=== PATIENT | female | born 1975 | race Caucasian/White ===

== ENCOUNTER 2017-11-08 09:45 | Emergency (ER) | payer BC, SELFPAY ==
[2017-11-08 09:45] VITALS: BP 136/80; PULSE 76; RESP 18; TEMP 36.6; O2SAT 100; BMI 30.1
--- NOTE | 2017-11-08 10:14 | ED.DCSUM_ITS ---
- ER Visit Summary Date of Service: 11/08/17 Chief Complaint: Injury to right long finger History of Present Illness: The patient is a 42 F is right-handed presents with injury to right long finger. She closed the door on her finger. Tetanus immunization is unknown. She denies any paresthesia, anesthesia or motor weakness. She is on no anticoagulant or antiplatelet medicine. Physical Examination: Should not completely avulsed the nail of the right long finger. There is a nail bed injury which will require repair and there is evidence of avulsed tissue. The extensor commonness tendon, the flexor digitorum superficialis and the flexor digitorum profundus are intact. Capillary refill is normal. Sensation is normal. Test Results: Three-view x-ray of the right long finger reveals a nondisplaced tuft fracture. Emergency Department Course and Treatment: Three-view x-ray of the right long finger was ordered to evaluate for fracture since she has pain to palpation of the distal phalanx. Tetanus was updated. Treatment Plan: Finger was prepped draped in sterile manner. A digital block was placed using 1% lidocaine. The wound was irrigated with normal saline, 200 cc. The nailbed was repaired using 6-0 Vicryl. A portion of the distal phalanx was exposed and could not be covered when the nailbed was repaired.. The nail was sutured in place since it is intact and will protect the nail bed. Disposition: Follow-up appointment with Dr. Jose Torres tomorrow at 1015, appropriate home-going instruction and cephalexin 500 mg 3 times daily Impression: 1. Open tuft fracture right long finger initial encounter 2. Nailbed repair 3. Reattachment of nail This note was generated with [employer] dictation software. It may contain incorrect words, spelling, and punctuation that were not noted in review of the chart prior to signing ED Disposition - Plan for ED Patient: Disposition: Home or Assisted Living Chief Complaint: Laceration Instructions: ED Fx Finger Open Prescriptions: Cephalexin [Keflex] 500 mg PO Q8 #14 cap Referrals: Papito Starks MD [NON-STAFF] - Jose Gutiérrez MD [STAFF PHYSICIAN] - 11/09/17 10:15 am
--- NOTE | 2017-11-08 10:30 | RAD_ITS ---
STUDY: X-RAY - RIGHT HAND, ATTENTION MIDDLE FINGER REASON FOR EXAM: Caught distal middle finger in door, nail removed. TECHNIQUE: 3 view(s) of the finger were obtained. COMPARISON: None. FINDINGS: Normal metacarpal head. Normal metacarpophalangeal joint. Normal proximal phalanx. Normal middle phalanx. There is slight deformity of the ungual tuft of the third finger suggestive of remote injury but no demonstrated recent fracture. Normal proximal interphalangeal joint. Normal distal interphalangeal joint. There is soft tissue swelling of the distal aspect of the finger. RAD/Finger(s) Min 2 Views IMPRESSION: Slight deformity of the ungual tuft of the third finger suggestive of remote injury without demonstrated recent fracture. Electronically Signed: Miller De La Cruz MD at 10:53 EST Tel , Service support ,
[2017-11-08] MEDS: Diphth,Pertuss(Acell),Tet Vac 0.5 ML Vial IM (10:38)
[2017-11-08] MEDS: Cephalexin 250 MG Capsule 500 MG PO (11:50)
== END 2017-11-08 11:58 | disposition home or self-care (01) ==
PROVIDERS: Emergency Provider Emergency Medicine
DX: S62.602B Fracture of unspecified phalanx of right middle finger, initial encounter for open fracture (principal); W23.0XXA Caught, crushed, jammed, or pinched between moving objects, initial encounter; Y93.9 Activity, unspecified; Y92.9 Unspecified place or not applicable; Y99.9 Unspecified external cause status; Z72.0 Tobacco use; Z23 Encounter for immunization
CPT/HCPCS: 11760; 73140; 90471; 90715; 99283

== ENCOUNTER 2017-11-13 05:58 | Day surgery (SDC) | payer BC, SELFPAY ==
--- NOTE | 2017-11-12 19:58 | HP.PCM_ITS ---
History and Physical Date of Admission: 11/13/17 HISTORY OF PRESENT ILLNESS 42 year old woman presents with blunt trauma to her right long fingertip when she caught her finger in a car door when it was closed. She denies any numbness or weakness of the right long finger. There was bleeding at the scene that was controlled with pressure. She went to the ED where an xray showed no acute fracture. A nail bed injury was noted and was partially repaired in the ED. However the distal phalanx could not be completely closed with the available nail bed tissue as there was some avulsion of tissue. The nail plate was tacked back on to protect the nail bed. I saw her in the office and recommended to her to have her finger nail explored and the nail bed defect repaired. This may require lateral relaxing incisions. A split thickness nail bed graft may be necessary as well. If I can harvest it from the same nail that would be ideal. If the surrounding nail bed tissue is not of good quality for a nail bed graft then I would need to obtain the graft from an adjacent finger or a toe. Patient denies any fever. Patient is able to move her fingers without difficulty. The ED placed her on Keflex. PAST MEDICAL HISTORY GERD. PAST SURGICAL HISTORY Foot surgery. Nasal surgery. MEDICATIONS Biotin. Keflex. Flonase. Ibuprofen. Prilosec. Ketotifen eye drops. ALLERGIES None. SOCIAL HISTORY Patient is a smoker. Patient does not drink alcohol. FAMILY HISTORY Breast cancer - Grandmother. Colon cancer - Grandfather and Grandmother. Diabetes - Grandfather. Lung cancer - Father. REVIEW OF SYSTEMS General - Denies fever, fatigue, and weight loss. ENT - Denies nasal congestion and sore throat. Eyes - Denies cataracts and glaucoma. Endocrine - Denies excessive thirst and urination. Skin - Has nail bed injury right long finger tip. Musculoskeletal - Denies joint pain, joint stiffness, weakness of muscles and joints, back pain, and arthritis. Neuro - Denies headaches. Cardiovascular - Has chest pain. Denies shortness of breath with exertion. Psych - Denies anxiety and depression. Respiratory - Denies cough and shortness of breath. Patient is a smoker. Gastrointestinal - Denies nausea, vomiting, diarrhea, and constipation. Hematologic - Denies bleeding and abnormal bruising. Genitourinary - Denies hematuria and urinary frequency. PHYSICAL EXAMINATION General - Alert and oriented. HEENT - PERRL. EOMI. Throat is clear. Neck - Supple and nontender. No cervical adenopathy. Lungs - Clear to auscultation. Heart - Regular rate and rhythm. Abdomen - Soft and nondistended. Extremities - FROM. No axillary adenopathy. Radial pulses are palpable. Fingers are warm with good capillary refill. The right long finger tip is mildly swollen. Nail plate is in place with sutures. Neuro - CN II - XII grossly intact. ASSESSMENT 1. Complex nail bed injury right long finger tip with exposed bone. 2. Smoker. PLAN Xray reviewed. There is no acute fracture seen. Recommend exploration of the patient's nail bed right long finger. According to ED reports, there is some tissue missing and exposed distal phalanx. The goal is to provide soft tissue coverage, hopefully with nail bed tissue. Depending on the size of the tissue defect, relaxing lateral incisions may be necessary and or a possible nail bed graft (split thickness). If there is an area on the same nail for the graft then that will be my first choice. If not then an adjacent digit or a toe would be used as the donor site. If there is near total loss of the nail bed then instead of causing another nail bed defect in another digit, then I would consider excising the nail complex and provide soft tissue coverage to maintain length with a two stage thenar flap or a cross finger flap and skin grafting. Surgery will be done under general anesthesia on an outpatient basis. Continue Keflex until the surgery. Patient was informed of the risks and complications of the procedure including alternatives to surgery. These were discussed with her personally. She voices understanding and wishes to proceed. Some of the risks and complications were included in a form from the [employer]. Some of the risks that were discussed included but were not inclusive of failure to diagnose including symptom relief, pain, infection, numbness, stiffness, loss of digit, RSD, need for further surgery, contracture and wound healing problems. She voices understanding and wishes to proceed. Encouraged the patient to stop smoking as it may have deleterious effects on wound healing.
[2017-11-13] VITALS (7 sets, daily range): BP systolic 113–132; BP diastolic 70–92; PULSE 56–85; RESP 14–16; TEMP 36.3–36.8; O2SAT 93–98; BMI 30.3
[2017-11-13 06:17] LABS: Internal QC Validated? YES +Cl - CLEAR BKGD; Pregnancy, Urine Negative Negative
[2017-11-13] MEDS: Cefazolin 2 GM in 0.9% Normal Saline 100 ML IV (07:19)
[2017-11-13] MEDS: Mupirocin Ointment 22gm Tube 1 APPLIC (08:40)
--- NOTE | 2017-11-13 08:49 | OP.PN_ITS ---
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 Complex nail bed injury right long finger tip with exposed bone. 2. Smoker. Post-Operative Diagnosis: 1. Complex nail bed injury defect with exposed bone ( 40%) ulnar aspect right long finger tip. 2. Smoker. Surgery/Procedure Performed:: Complex repair nail bed defect with exposed bone ( 40%) ulnar aspect right long finger with nail bed graft from left big toe. Description of Surgical Findings:: 42 year old woman presents with blunt trauma to her right long fingertip when she caught her finger in a car door when it was closed. She denies any numbness or weakness of the right long finger. There was bleeding at the scene that was controlled with pressure. She went to the ED where an xray showed no acute fracture. A nail bed injury was noted and was partially repaired in the ED. However the distal phalanx could not be completely closed with the available nail bed tissue as there was some avulsion of tissue. The nail plate was tacked back on to protect the nail bed. I saw her in the office and recommended to her to have her finger nail explored and the nail bed defect repaired. This may require lateral relaxing incisions. A split thickness nail bed graft may be necessary as well. If I can harvest it from the same nail that would be ideal. If the surrounding nail bed tissue is not of good quality for a nail bed graft then I would need to obtain the graft from an adjacent finger or a toe. Patient denies any fever. Patient is able to move her fingers without difficulty. The ED placed her on Keflex. Today the patient underwent complex repair nail bed defect with exposed bone (40 %) ulnar aspect right long finger with nail bed graft from left big toe. Total tourniquet time - right long finger - 42 minutes. left big toe - 31 minutes. Size of defect right long finger tip nail bed - 0.4 x 0.7 cm. Estimated Blood Loss: 5 ml. Specimen's removed: None. Drains: None. Type of Anesthesia:: General - Admit VTE Documentation VTE Present on Admission: No VTE Mechan Device Prophylaxis: SCD's VTE Pharm Prophylaxis ordered?: No
--- NOTE | 2017-11-13 08:55 | PCM.DC ---
You will use the following diet at home:: No restrictions Discharge Activity: May not drive while taking narcotic pain medications., - - keep right hand elevated. keep left leg elevated when sitting. minimize standing. May shower in (days): 1 - wear plastic bag over right hand and left foot when showering. May resume sexual activity in: No Restrictions Weight Bearing Status: Weight bearing as tolerated Lifting Restrictions: 20 lbs. Keep extremity elevated above heart level: Right Arm, Left Leg Call your doctor if your incision/area has: Continuous Slow Oozing, Sudden Increased Bleeding, Increased Pain/ Swelling, Increased Redness, Foul Smelling Discharge, Swelling at the incision site Call your doctor if you observe: Fever of 101 or Higher, Coldness, Increased Pain, Shortness of breath, Chest pain, Calf discomfort, Uncontrolled pain Suture Line Care: - - after dressing removed in the office, apply antibiotic ointment to nail sutures daily. Remove Dressing in (days):: 7 - will remove dressing in office. Cleanse incision/area with: - - wear plastic bag over right hand and left foot when showering. Allergies/Adverse Reactions: Allergies No Known Allergies Allergy (Verified 11/12/17 14:36) Medications to take at Discharge Cephalexin [Keflex] 500 mg PO Q8 #14 cap 11/08/17 Fluticasone 0.05% [Flonase Nasal [place]] 2 spray NASAL DAILY 11/08/17 Omeprazole [Prilosec] 40 mg PO DAILY 11/08/17 biotin 10,000 mcg capsule 10,000 mcg PO DAILY ea 11/09/17 ketotifen 0.025 % (0.035 %) eye drops 2 drp EACH EYE DAILY ml 11/09/17 Ibuprofen 600 mg PO Q6H PRN 11/12/17 Doxycycline [Vibramycin] 100 mg PO BID #28 cap 11/13/17 Oxycodone HCl/Acetaminophen [Percocet 5/325] 1 - 2 tab PO 4X/DAY PRN PRN 7 Days #30 tab 11/13/17 The following prescriptions were given: Oxycodone HCl/Acetaminophen [Percocet 5/325] 1 - 2 tab PO 4X/DAY PRN PRN 7 Days #30 tab PRN Reason: Pain Doxycycline [Vibramycin] 100 mg PO BID #28 cap Primary Care Physician: Care Physician,No Primary [Primary Care Provider] - Please Follow Up With: Jose Gutiérrez MD When: one week. call [phone] for appt. Proposed Discharge Date: 11/13/17
--- NOTE | 2017-11-13 18:39 | PCM.OPRPT ---
Report of Operation Date of Procedure: 11/13/17 Pre-Operative Diagnosis: 1. Complex nail bed injury right long finger tip with exposed bone. 2. Smoker. Post-Operative Diagnosis: 1. Complex nail bed injury defect with exposed bone (40%) ulnar aspect right long finger tip. 2. Smoker. Surgery/Procedure Performed:: Complex repair nail bed defect with exposed bone (40%) ulnar aspect right long finger with nail bed graft from left big toe. Description of Surgical Findings:: 42 year old woman presents with blunt trauma to her right long fingertip when she caught her finger in a car door when it was closed. She denies any numbness or weakness of the right long finger. There was bleeding at the scene that was controlled with pressure. She went to the ED where an xray showed no acute fracture. A nail bed injury was noted and was partially repaired in the ED. However the distal phalanx could not be completely closed with the available nail bed tissue as there was some avulsion of tissue. The nail plate was tacked back on to protect the nail bed. I saw her in the office and recommended to her to have her finger nail explored and the nail bed defect repaired. This may require lateral relaxing incisions. A split thickness nail bed graft may be necessary as well. If I can harvest it from the same nail that would be ideal. If the surrounding nail bed tissue is not of good quality for a nail bed graft then I would need to obtain the graft from an adjacent finger or a toe. Patient denies any fever. Patient is able to move her fingers without difficulty. The ED placed her on Keflex. Patient was informed of the risks and complications of the procedure including alternatives to surgery. These were discussed with her personally. She voices understanding and wishes to proceed. Some of the risks and complications were included in a form from the [employer]. Some of the risks that were discussed included but were not inclusive of failure to diagnose including symptom relief, pain, infection, numbness, stiffness, loss of digit, RSD, need for further surgery, contracture and wound healing problems. She voices understanding and wishes to proceed. Encouraged the patient to stop smoking as it may have deleterious effects on wound healing. Total tourniquet time - right long finger - 42 minutes. left big toe - 31 minutes. Size of defect right long finger tip nail bed - 0.4 x 0.7 cm. 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 Drains: None. Estimated Blood Loss (mL): 5 ml. Description of Procedure: Patient was taken to OR in supine position and was placed under general anesthesia. Her right hand and left foot were prepped and draped in the usual fashion. SCD's were placed for DVT prophylaxis. Perioperative antibiotics were given intravenously. A tourniquet was then placed at the base of the right long finger. The suture was removed that was keeping the nail plate in place. The nail plate was removed. The nail bed was a little swollen. It was irrigated with saline. There was a nail bed defect on the ulnar aspect of the nail bed. Underlying distal phalanx bone is visible. The size of the defect with exposed bone was 0.4 x 0.7 cm. It represented about a 40% defect. The remaining nail bed of the right long finger was swollen and had the presence of sutures from recent repair in the ED. Therefore a nail bed graft would be needed. A tourniquet was then placed at the base of the left big toe. I gently elevated the nail plate off the nail bed using an elevator. I did not have to remove the nail place completely in order to get exposure to the nail bed. Using a 15 scalpel, I tangentially excised a partial thickness nail bed graft. No exposed bone was seen after the harvesting of the nail bed graft. The nail bed graft was then used to close the nail bed defect right long finger with exposed bone. The partial thickness nail bed graft was then secured to the surrounding nail bed with 6-0 Chromic simple interrupted sutures. After placement of the nail bed graft, I placed the nail plate back on as a splint and a biologic dressing. It was secured to the surrounding paronychial area and eponychial area, and hyponychial area with 5-0 Prolene interrupted sutures. The tourniquet was removed after 42 minutes. Hemostasis was obtained with gentle pressure. Antibiotic ointment was applied to the nail followed by xeroform gauze and 2x2 gauze followed by 2 inch clarisa wrap. I then secured the nail plate left big toe to the surrounding paronychial area and hyponychial area with 5-0 Prolene interrupted sutures. I then removed the tourniquet from the left big toe after 31 minutes. Hemostasis was obtained with gentle pressure. Antibiotic ointment was applied to the nail followed by xeroform gauze and 2x2 gauze followed by 2 inch clarisa wrap. Patient tolerated the procedure well and was sent to PACU in satisfactory condition. She will be sent home on antibiotics and pain medication. She will followup in the office in a week for a wound check. Range of motion exercises will be encouraged to minimize stiffness. Sutures will be removed in 2 weeks. Grafts/Implants Used: None. - Complications None. - Admit VTE Documentation VTE Present on Admission: No VTE Mechan Device Prophylaxis: SCD's VTE Pharm Prophylaxis ordered?: No
== END 2017-11-13 10:40 | disposition home or self-care (01) ==
LOC: SDC 06:00 → AC 06:00
PROVIDERS: Anesthesiology; Visit Provider Surgery
PROC: (CPT 11762; principal; 2017-11-13 07:15)
DX: S61.302A Unspecified open wound of right middle finger with damage to nail, initial encounter (principal); W23.1XXA Caught, crushed, jammed, or pinched between stationary objects, initial encounter; K21.9 Gastro-esophageal reflux disease without esophagitis; F17.200 Nicotine dependence, unspecified, uncomplicated
CPT/HCPCS: 00400; 11762; 81025; J7120; J2405

== ENCOUNTER 2018-02-19 17:30 | Outpatient (RCR) | payer BC, SELFPAY ==
--- NOTE | 2017-12-26 11:07 | HP.OTEVAL_ITS ---
Patient's Visit Information KYMBERLY CORREA is a 42 year old F, referred to Occupational Therapy by DR.JSLABY Jessica, with a diagnosis of unspecified injury R hand/finger, open wound R middle finger w/ damage nail. Date of Evaluation: 12/25/17 Occupational Therapist: Jennie Suarez - Subjective Subjective: Pt seen for initial occupational therapy evaluation for stiffness R middle finger after accidently slamming door on R hand with opened fracture of R middle finger and nail bed 11/08/17. Pt had sx 11/13/17 with nailgraph/tissue graph. Pt now wearing immobilizer for R middle finger until 01/22/18. 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 She is right hand dominent. Pt staets she is able to complete all BADL's independently with being careful of her R middle finger while completing tasks. - Pain Right Hand 5 Pain Intensity Range: 5 - Objective Objective/Observation: Pt demo decreased functional use of R middle finger with decreased ROM of R middle finger DIP flexion, decreased R hand wax machine operator strength and pinch strength with decreased sensation of tip of R middle finger. Pt fearful of using R middle finger for functional tasks 2' pain and fearful of nail falling off. - ROM ROM Comments: R middle finger MP 0/70, PIP 0/75, DIP AROM -5/5, PROM -5/10 - Strength Woods Superintendent: R 30#, L 60# Tripod Pinch: R 8#, L 18# Strength Comments: Pt demo decreased strength R hand and R middle finger - Edema Other: slight edema noted R middle finger - Sensation Sensation Comments: Tip of R middle finger numbness. Monofilament 2.83 - DASH-Disabilities of Arm, Shoulder& Hand DASH Sum: 79 - Goals Goal:: Pt will progress w/ R hand wax machine operator strength by 30# to assist with functional living tasks independently. Goal:: Pt will progress with R middle finger DIP flexion and extension by 5 degrees to increase ability to complete BADL's with increased independence. Goal:: Pt will demo no pain greater than 1/10 in R middle finger by time for D/ C from OT. Goal:: Pt will be able to use R middle finger to assist w/ grooming/hygiene tasks independently. Goal:: Pt will be educated on HEP for R hand with good understanding and demo 100%x. - Rehabilitation General Assessment: Pt demo decreased functional use of R middle finger with decreased strength of R hand and decreased ROM DIP R middle finger flexion/ extension indicating a need for occupational therapy services to increase R middle finger ROM and R hand strength with education on R hand HEP and increasing her functional use of R middle finger for BADLs with good understanding and demo. Rehabilitation Potential: Good - Anticipated Interventions Anticipated Interventions: A/AAROM/PROM, Strengthening, Edema Control, Scar Care , Massage, Wound Care, Modalities, Joint Protection/Energy Conservation, Fine Motor Coord/Wil, ADL Training, Home Program - Visit Plan Frequency: 1-2x /Week Duration: 6 Weeks General Plan: increase rom of R middle finger flexion/extension, increase R hand wax machine operator strength, decrease pain and edema, educate on HEP. TEXT: Thank you for the opportunity to evaluate your patient. For Medicare and Medicare HMO plans, please review the plan of care and approve it. It will need to be FAXED BACK to us at [phone] for Medicare purposes. Please let me know if there are questions or concerns regarding this plan of care. Physician Signature: Date:
--- NOTE | 2018-01-31 18:19 | HP.OTREVAL ---
Jose Gutiérrez, It has been my pleasure to treat KYMBERLY CORREA over the last 11 visits for unspecified injury R hand/finger, open wound R middle finger w/ damage nail. Please see the progress note below for an update on the occupational therapy plan of care! Subjective: Pt arrived stating no pain R middle finger Objective/Function: Re-evaluation this date. Pt making progress with OT goals. Pt decreasing pain of R middle finger with movement and at rest 0/10 pain. 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 Pt progressing with R middle finger flexion/extension MP 0/62, PIP 0/55, DIP 0/8. Pt has been educated on joint mobilization exercises, yellow theraputty exercises and prolonged stretching techniques for R hand/middle finger. Pt requires further more occupational therapy services to increase flexion of R middle finger and increase functional home planning consultant salesperson strength of R hand. 3 visits within next 6 wks. Plan Frequency: 3 visits Duration: 6 Weeks Plan: cont w/ prior POC Goals - Goals Goal:: Pt will progress w/ R hand home planning consultant salesperson strength by 30# to assist with functional living tasks independently. Goal:: Pt will progress with R middle finger DIP flexion and extension by 5 degrees to increase ability to complete BADL's with increased independence. Goal:: Pt will demo no pain greater than 1/10 in R middle finger by time for D/C from OT. Goal:: Pt will be able to use R middle finger to assist w/ grooming/hygiene tasks independently. Goal:: Pt will be educated on HEP for R hand with good understanding and demo 100%x. Anticipated Interventions Anticipated Interventions: A/AAROM/PROM, Strengthening, Edema Control, Scar Care, Massage, Wound Care, Modalities, Joint Protection/Energy Conservation, Fine Motor Coord/Wil, ADL Training, Home Program Please do not hesitate to contact me at [phone] by phone or if you have questions or concerns regarding this new plan of care! Sincerely, Jennie Suarez
--- NOTE | 2018-02-20 15:52 | HP.OTDCSUM_ITS ---
HP - OT D/C Summary It has been my pleasure to treat KYMBERLY CORREA under orders from Jose Gutiérrez, for the diagnosis of unspecified injury R hand/finger, open wound R middle finger w/ damage nail for a total of 12 visit(s). Please see the following information for a summary of their discharge status. - Objective Objective/Function: increase flexibility of R middle finger PIP and DIP. - Goals Patient Goals: Regain Strength, Decrease Pain, Return to Work, Decrease Swelling /Stiffness, Improve Fine Motor Skills, Use Hand/Wrist/Arm Normally Again, Decrease Tingling/Numbness, Increase ROM, Be More Independent in ADLS, Resume Former Household Responsibilities (Cooking,Cleaning,Yard, etc.) Goal:: Pt will progress w/ R hand brand marketing intern strength by 30# to assist with functional living tasks independently. Goal:: Pt will progress with R middle finger DIP flexion and extension by 5 degrees to increase ability to complete BADL's with increased independence. Goal:: Pt will demo no pain greater than 1/10 in R middle finger by time for D/ C from OT. Goal:: Pt will be able to use R middle finger to assist w/ grooming/hygiene tasks independently. Goal:: Pt will be educated on HEP for R hand with good understanding and demo 100%x. - Plan Plan: d/c pt from OT services this date. See d/c for all details. - D/C Information Discharge Comments: Pt has made good progress with Occupational Therapy. Pt demonstrates no pain R middle finger. Pt guarded of R middle finger and continues to wear splint R middle finger. Pt has progressed to 35# brand marketing intern strength R hand. Pt has been educated on HEP for R hand brand marketing intern strengthening exercises using theraputty with handout given. Pt demo good understanding of use of theraputty and stress ball for strengthening exercises as well as functionaly using R hand again with BADLs. Pt educated on blocking exercises for R middle finger to increase flexion of DIP and PIP and prolonged stretching composit fist. Pt demo 45' AROM flexion of R middle finger PIP and 111' flexion DIP. Pt no longer requires OT services at this time. If there are questions or concerns regarding this patient's occupational therapy , please fell free to call me at [phone]. Thank you for the referral of this patient. Sincerely, Jennie Suarez
== END 2018-02-19 19:00 | disposition home or self-care (01) ==
LOC: OT 17:30
PROVIDERS: Visit Provider Surgery
DX: S69.91XD Unspecified injury of right wrist, hand and finger(s), subsequent encounter (principal); S61.302D Unspecified open wound of right middle finger with damage to nail, subsequent encounter
CPT/HCPCS: 97035; 97110; 97140; 97165; 97168; 97530

== ENCOUNTER 2018-08-20 11:33 | Day surgery (SDC) | payer BC, SELFPAY ==
[2018-08-20 11:55] LABS: Internal QC Validated? YES +Cl - CLEAR BKGD; Pregnancy, Urine Negative Negative
[2018-08-20 12:07] VITALS: BP 117/72; PULSE 63; RESP 14; TEMP 36.7; O2SAT 96; BMI 28.3
[2018-08-20] MEDS: Ciprofloxacin 0.3% 2.5ml Bottle 1 DRP (13:04)
[2018-08-20] MEDS: Oxymetazoline 0.05% 1 SPRAY SPRAY.BTL 15 SPRAY (13:04)
--- NOTE | 2018-08-20 13:38 | DCINST_ITS ---
You will use the following diet at home:: No restrictions Your food should be the consistency of: Regular Discharge Activity: Return to Normal Activity Additional Dressing/Incision Instructions:: 3 ear drops each ear twice daily for 48 hours Allergies/Adverse Reactions: Allergies No Known Allergies Allergy (Verified 08/19/18 08:25) Medications to take at Discharge Omeprazole [Prilosec] 40 mg PO DAILY 11/08/17 biotin 10,000 mcg capsule 10,000 mcg PO DAILY ea 11/09/17 Ibuprofen 600 mg PO Q6H PRN 11/12/17 Primary Care Physician: Care Physician,No Primary [Primary Care Provider] - Test Results: Test results from this visit will be discussed in further detail at your follow- up appointment, if applicable. Please Follow Up With: Hollis Baker MD When: 3 weeks
--- NOTE | 2018-08-20 13:38 | PCM.OPRPT ---
Problem List (1) Eustachian tube dysfunction Status: Chronic Qualifiers: Laterality: bilateral Qualified Code(s): H69.83 - Other specified disorders of Eustachian tube, bilateral Report of Operation Date of Procedure: 08/20/18 Pre-Operative Diagnosis: 1. eustachian tube dysfunction. 2. chronic serous otitis media Post-Operative Diagnosis: 1. eustachian tube dysfunction. 2. chronic serous otitis media Surgery/Procedure Performed:: 1. placement of pressure equalization tubes, right and left. 2. eustachian tube dilation, right and left Type of Anesthesia:: General Description of Procedure: on the day of the procedure, after appropriate informed consent was obtained, the patient was brought to the operating room and placed in supine position on the operating table. she was placed under general endotracheal anesthesia by the anesthesiologist. the binocular operating microscope was used to evaluate the left ear. the tympanic membrane was viewed in its entirety and found to be intact. a radial myringotomy was made in the anterior/inferior quadrant and a T tube was placed. floxin drops were instilled. the binocular operating microscope was used to evaluate the right ear. the tympanic membrane was viewed in its entirety and found to be intact. a radial myringotomy was made in the anterior/inferior quadrant and a T tube was placed. floxin drops were instilled. after the nose was decongested, the zero degree endoscope was placed in the left nasal cavity and advanced. the eustachian tube orifice was seen. the AERA system was advanced to a soft stop and the balloon was dilated to 12atm for 2 minutes then retracted. the zero degree endoscope was placed in the right nasal cavity and advanced. the eustachian tube orifice was seen. the AERA system was advanced to a soft stop and the balloon was dilated to 12atm for 2 minutes then retracted. the patient was awoken from anesthesia and transferred to the PACU in stable condition.
[2018-08-20 13:41] VITALS: BP 117/72; BP 136/85; PULSE 68; RESP 16; TEMP 36.7; O2SAT 96
[2018-08-20 13:50] VITALS: BP 117/72; BP 134/93; PULSE 66; RESP 16; O2SAT 99
[2018-08-20 14:02] VITALS: BP 117/72; BP 127/87; PULSE 64; RESP 16; TEMP 36.6; O2SAT 98
[2018-08-20] MEDS: Acetaminophen 325 MG Tablet 650 MG PO (14:16)
[2018-08-20 14:25] VITALS: BP 117/72
--- OUTSIDE RECORDS SUMMARY | 2018-10-02 03:21 | XMS RPT_ITS ---
:1975 Author Organization OHIP Support Name Relationship Address Phone MADELINE PAT Unavailable [address] + [place] [address] WOOBR Unavailable [address] + [address] [place] [address] MADELINE, PAT Unavailable [address] + [place] [address] WOOBR Unavailable [address] + [address] [place] [address] MADELINE, PAT Unavailable [address] + [place] [address] WOOBR Unavailable [address] + [address] [place] [address] MADELINE, PAT Unavailable [address] + [place] [address] WOOBR Unavailable [address] + [address] [place] [address] MADELINE, PAT Unavailable [address] + [place] [address] WOOBR Unavailable [address] + [address] [place] [address] MADELINE, PAT Unavailable [address] + [place] [address] WOOBR Unavailable [address] + [address] [place] [address] MADELINE, PAT Unavailable [address] + [place] [address] WOOBR Unavailable [address] + [address] [place] [address] MADELINE, PAT Unavailable [address] + [place] [address] WOOBR Unavailable [address] + [address] [place] [address] MADELINE, PAT Unavailable [address] + [place] [address] WOOBR Unavailable [address] + [address] [place] [address] MADELINE, PAT Unavailable [address] + [place] [address] WOOBR Unavailable [address] + [address] [place] [address] MADELINE, PAT Unavailable [address] + [place] [address] WOOBR Unavailable [address] + [address] [place] [address] MADELINE, PAT Unavailable [address] + [place] [address] WOOBR Unavailable [address] + [address] [place] [address] MADELINE, PAT Unavailable [address] + [place] [address] WOOBR Unavailable [address] + [address] [place] [address] MADELINE, PAT Unavailable [address] + [place] [address] WOOBR Unavailable [address] + [address] [place] [address] Care Team Providers Name Role Phone MALI ANDERSON (TEST GRADER) Attending Unavailable ANDERSON, MALI (TEST GRADER) Referring Unavailable ANDERSON, MALI (TEST GRADER) Referring Unavailable ANDERSON, MALI (TEST GRADER) Referring Unavailable ANDERSON, MALI (TEST GRADER) Attending Unavailable ANDERSON, MALI (TEST GRADER) Referring Unavailable ANDERSON, MALI (TEST GRADER) Attending Unavailable ANDERSON, MALI (TEST GRADER) Referring Unavailable ROSAMARIA VASQUEZ (LOCKSTITCH POCKET SETTER) Attending Unavailable ANDERSON, MALI (TEST GRADER) Referring Unavailable ANDERSON, MALI (TEST GRADER) Referring Unavailable Sood, Ryne Attending Unavailable Primay Care Physicia, No Primary Care Unavailable Jose Gutiérrez Attending Unavailable Primay Care Physicia, No Referring Unavailable Primay Care Physicia, No Primary Care Unavailable Slaby, Jose Attending Unavailable Slaby, Jose Referring Unavailable Primay Care Physicia, No Primary Care Unavailable Slaby, Jose Attending Unavailable Primay Care Physicia, No Referring Unavailable Primay Care Physicia, No Primary Care Unavailable Slaby, Jose Attending Unavailable Primay Care Physicia, No Referring Unavailable Primay Care Physicia, No Primary Care Unavailable Slaby, Jose Attending Unavailable Slaby, Jose Referring Unavailable Primay Care Physicia, No Primary Care Unavailable Slaby, Jose Consulting Unavailable Slaby, Jose Attending Unavailable Primay Care Physicia, No Referring Unavailable Primay Care Physicia, No Primary Care Unavailable Slaby, Jose Attending Unavailable Primay Care Physicia, No Primary Care Unavailable Slaby, Jose Referring Unavailable Slaby, Jose Attending Unavailable Primay Care Physicia, No Referring Unavailable Primay Care Physicia, No Primary Care Unavailable Slaby, Jose Attending Unavailable Primay Care Physicia, No Referring Unavailable Primay Care Physicia, No Primary Care Unavailable Slaby, Jose Attending Unavailable Primay Care Physicia, No Referring Unavailable Primay Care Physicia, No Primary Care Unavailable Slaby, Jose Attending Unavailable Primay Care Physicia, No Referring Unavailable Primay Care Physicia, No Primary Care Unavailable Slaby, Jose Attending Unavailable Primay Care Physicia, No Referring Unavailable Hollis Baker Attending Unavailable Hollis Baker Referring Unavailable Primay Care Physicia, No Primary Care Unavailable PROBLEMS PROBLEMS DATE TYPE CONDITION / CODE ATTENDING STATUS SOURCE 03/13/2018 Unknown S69.91XD - Jose Gutiérrez Active [place] Unspecified injury Community of right wrist, hand Hospital and finger(s), Repository subsequent encounter / S69.91XD(ICD-10) 12/05/2017 Unknown G89.18 - Other acute Jose Gutiérrez Active [place] postprocedural pain Community / G89.18(ICD-10) Hospital Repository 12/05/2017 Unknown S61.302A - Jose Gutiérrez Active [facility] Unspecified open Community wound of right Hospital middle finger with Repository damage to nail, initial encounter / S61.302A(ICD-10) 09/25/2017 Active Unknown / NA Active [place] UNK(Unknown) [facility] Main [place] Repository 09/20/2017 Active Encounter for NA Active [place] screening mammogram Clinic Main for malignant [place] neoplasm of breast / Repository Z12.31(ICD-10) PROCEDURES PROCEDURES No Procedure Records FoundRESULTS RESULTS OPERATIVE REPORT Observed: 08/20/2018 Status: F Source: [place] 1:[address] [facility] REPOSITORY [facility] Medical Records Department [address] [place] [address] Operative Report 08/20/18 1338 MR#: [id number] Acct: [id number] Name: MICHELLE GARCIA Rep #: [id number] : 1975 43 From: Hollis Baker MD PCP: Care Physician, No Primary Status: REG SDC Y Location: [place] [address] Problem List (1) Eustachian tube dysfunction Status: Chronic Qualifiers: Laterality: bilateral Qualified Code(s): H69.83 - Other specified disorders of Eustachian tube, bilateral Report of Operation Date of Procedure: 08/20/18 Pre-Operative Diagnosis: 1. eustachian tube dysfunction. 2. chronic serous otitis media Post-Operative Diagnosis: 1. eustachian tube dysfunction. 2. chronic serous otitis media Surgery/Procedure Performed:: 1. placement of pressure equalization tubes, right and left. 2. eustachian tube dilation, right and left Type of Anesthesia:: General Description of Procedure: on the day of the procedure, after appropriate informed consent was obtained, the patient was brought to the operating room and placed in supine position on the operating table. she was placed under general endotracheal anesthesia by the anesthesiologist. the binocular operating microscope was used to evaluate the left ear. the tympanic membrane was viewed in its entirety and found to be intact. a radial myringotomy was made in the anterior/inferior quadrant and a T tube was placed. floxin drops were instilled. the binocular operating microscope was used to evaluate the right ear. the tympanic membrane was viewed in its entirety and found to be intact. a radial myringotomy was made in the anterior/inferior quadrant and a T tube was placed. floxin drops were instilled. after the nose was decongested, the zero degree endoscope was placed in the left nasal cavity and advanced. the eustachian tube orifice was seen. the AERA system was advanced to a soft stop and the balloon was dilated to 12atm for 2 minutes then retracted. the zero degree endoscope was placed in the right nasal cavity and advanced. the eustachian tube orifice was seen. the AERA system was advanced to a soft stop and the balloon was dilated to 12atm for 2 minutes then retracted. the patient was awoken from anesthesia and transferred to the PACU in stable condition. 08/20/18 1344 <Electronically signed by Hollis Baker MD> Date Hollis Baker MD CC: No Primary Care Physician; Bertrand Baker MD Signed DISCHARGE INSTRUCTION Observed: 08/20/2018 Status: F Source: [place] 1:[address] [facility] REPOSITORY [facility] Medical Records Department [address] [place] [address] Instructions for Home/Discharge Instructions 08/20/18 1337 MR#: [id number] Acct: [id number] Name: MICHELLE GARCIA Rep #: [id number] : 1975 43 From: Hollis Baker MD PCP: Care Physician, No Primary Status: REG [facility] You will use the following diet at home:: No restrictions Your food should be the consistency of: Regular Discharge Activity: Return to Normal Activity Additional Dressing/Incision Instructions:: 3 ear drops each ear twice daily for 48 hours Allergies/Adverse Reactions: Allergies No Known Allergies Allergy (Verified 08/19/18 08:25) Medications to take at Discharge Omeprazole [Prilosec] 40 mg PO DAILY 11/08/17 biotin 10,000 mcg capsule 10,000 mcg PO DAILY ea 11/09/17 Ibuprofen 600 mg PO Q6H PRN 11/12/17 Primary Care Physician: Care Physician,No Primary [Primary Care Provider] - Test Results: Test results from this visit will be discussed in further detail at your follow-up appointment, if applicable. Please Follow Up With: Hollis Baker MD When: 3 weeks 08/20/18 1338 <Electronically signed by Hollis Baker MD> Date Hollis Baker MD CC: No Primary Care Physician ,URINE Collected: 08/20/2018 Status: F Source: [place] 11:[address] [facility] REPOSITORY Order Comment: Reason for Laboratory Test preop TYPE CODE TESTS RESULT OUT OF REFERENCE UNITS RANGE LAB L400.8000 Negative Normal HCGUQUAL Negative Result Comment: Very dilute urine specimens, as indicated by a low specific gravity, may not contain hospital sales representative levels of hCG. If is still suspected, a first morning urine specimen should be collected 48 hours later and tested. Performed By: #### L400.7600 #### [facility] [address] [place], [address] PLASTIC SURGERY Observed: 07/21/2018 Status: F Source: [place] VISIT REPORT 6:[address] [facility] REPOSITORY [facility] [address] [place] [address] OFFICE VISIT Date of Service: 07/18/18 MR#: [id number] Acct: [id number] Name: MICHELLE GARCIA Rep #: [id number] : 1975 Provider: Jose Gutiérrez MD Age/Sex: 43/F Location[place] [facility] Status: Signed Intake Vital Signs07/18/18 Height 5 ft 3 in 07/18/18 Weight: 165 lb 8 oz Intake Visit Reasons: evaluation complex nail bed injury right long finger tip after surgical repair - 11/13/17 Commissioned Police Officer Required: No Accompanied by: None Is patient in pain?: No Allergies No Known Allergies Allergy (Verified 07/18/18 16:29) Medications Fluticasone 0.05% [Flonase Nasal [facility]] 2 spray NASAL DAILY 11/08/17 [History Confirmed 01/03/18] Omeprazole [Prilosec] 40 mg PO DAILY 11/08/17 [History Confirmed 01/03/18] biotin 10,000 mcg capsule 10,000 mcg PO DAILY ea 11/09/17 [History Confirmed 01/03/18] ketotifen 0.025 % (0.035 %) eye drops 2 drp EACH EYE DAILY ml 11/09/17 [History Confirmed 01/03/18] Ibuprofen 600 mg PO Q6H PRN 11/12/17 [History Confirmed 01/03/18] [facility] Medical History GERD (gastroesophageal reflux disease) (Acute) Seasonal allergies (Acute) Surgical History History of foot surgery (Acute) History of nasal surgery (Acute 06/2016) Family History Grandmother Breast cancer Father Lung cancer Grandfather Cancer Diabetes Grandfather Colon cancer GREAT GRANDFATHER Grandmother Colon cancer GREAT GRANDMOTHER Social History Smoking Status: Current every day smoker alcohol intake: current alcohol intake frequency: other Alcohol type: beer details: SOCIAL DRINKING substance use type: does not use HPI evaluation complex nail bed injury right long finger tip after surgical repair - 11/13/17: Details: HISTORY OF PRESENT ILLNESS Comes in today with no complaints. She has returned to work without problem. This was the result of her surgery on 11/13/17 where she underwent complex repair nail bed defect with exposed bone (40%) ulnar aspect right long finger with nail bed graft from left big toe. She has concerns about her right long finger nail as there is an area of nail detachment over the nail bed in the vicinity of the nail bed graft on the ulnar aspect. Sometimes her nail will snag on things and she is afraid that one time her nail may come completely off. She presents at this time for further evaluation and treatment. PAST MEDICAL HISTORY GERD. Complex nail bed injury right long finger tip with exposed bone. PAST SURGICAL HISTORY Foot surgery. Nasal surgery. Complex repair nail bed defect with exposed bone (40%) ulnar aspect right long finger with nail bed graft from left big toe - 11/13/17 MEDICATIONS Biotin. Flonase. Ibuprofen. Prilosec. Ketotifen eye drops. Phenergan. ALLERGIES None. SOCIAL HISTORY Patient is a smoker. Patient does not drink alcohol. FAMILY HISTORY Breast cancer - Grandmother. Colon cancer - Grandfather and Grandmother. Diabetes - Grandfather. Lung cancer - Father. REVIEW OF SYSTEMS General - Denies fever, fatigue, and weight loss. ENT - Denies nasal congestion and sore throat. Eyes - Denies cataracts and glaucoma. Endocrine - Denies excessive thirst and urination. Skin - Had nail bed injury right long finger tip that has healed. Musculoskeletal - Denies joint pain, joint stiffness, weakness of muscles and joints, back pain, and arthritis. Neuro - Denies headaches. Cardiovascular - Has chest pain. Denies shortness of breath with exertion. Psych - Denies anxiety and depression. Respiratory - Denies cough and shortness of breath. Patient is a smoker. Gastrointestinal - Denies nausea, vomiting, diarrhea, and constipation. Hematologic - Denies bleeding and abnormal bruising. Genitourinary - Denies hematuria and urinary frequency. PHYSICAL EXAMINATION General - Alert and oriented. HEENT - PERRL. EOMI. Throat is clear. Neck - Supple and nontender. No cervical adenopathy. Lungs - Clear to auscultation. Heart - Regular rate and rhythm. Abdomen - Soft and nondistended. Extremities - FROM. No axillary adenopathy. Radial pulses are palpable. Fingers are warm with good capillary refill. On the right long finger nail there is an area of nail detachment off the nail bed in the vicinity of the nail bed graft on the ulnar aspect. The nail plate is smooth. There is no redness. There is no clinical evidence of infection. The left big toe shows nail plate growth with no sequelae. Neuro - CN II - XII grossly intact. ASSESSMENT 1. Complex nail bed injury defect with exposed bone (40%) ulnar aspect right long finger tip, s/p nail bed graft with some nail plate detachment. 2. Smoker. 3. s/p complex repair nail bed defect with exposed bone (40%) ulnar aspect right long finger with nail bed graft from left big toe. PLAN She is not having any trouble at work at this time. There is some nail plate detachment in the vicinity of the nail bed graft. It is nontender. She states that when the nail snags on something, she is afraid that it will take the nail plate completely off. Recommend keeping the nail trimmed on the right long finger to minimize snagging. If the fingernail has persistent issues in the future of if the nail plate comes completely off, can consider a full thickness nail bed graft which heals with less scarring than a split thickness nail bed graft that was initially done. A full thickness nail bed graft does have increased risk of donor morbidity. Patient will think about it. She states it is not bothersome enough to undergo another surgery at this time. However if we do proceed with additional surgery, it is important to stop smoking until the nail bed graft has healed to maximize healing. A nicotine level will be checked preop. I also told her it is ok to have her artificial nails put on. Encouraged the patient to stop smoking as it may have deleterious effects on wound healing. Followup on an as needed basis. Assessment AND Plan Problems 1. Unspecified injury of right wrist, hand and finger(s), sequela S69.91XS 2. Open wound of right middle finger with damage to nail S61.302A 3. Smoker F17.200 Coding Level of Care Code Off vis,est,level 3 Diagnoses Unspecified injury of right wrist, hand and finger(s), sequela S69.91XS Open wound of right middle finger with damage to nail S61.302A Smoker F17.200 07/21/187 <Electronically signed by Jose Gutiérrez MD> Date Jose Gutiérrez MD Cosigner Signature: Date (if applicable) CC: PLASTIC SURGERY Observed: 04/21/2018 Status: F Source: [place] VISIT REPORT 4:[address] [facility] REPOSITORY [facility] [address] [place] [address] OFFICE VISIT Date of Service: 03/14/18 MR#: [id number] Acct: [id number] Name: MICHELLE GARCIA Rep #: [id number] : 1975 Provider: Jose Gutiérrez MD Age/Sex: 42/F Location: [facility] Status: Signed Intake Vital Signs03/14/18 Height 5 ft 3 in 03/14/18 Weight: 165 lb 8 oz Intake Visit Reasons: evaluation complex nail bed injury right long finger tip after surgical repair - 11/13/17 Commissioned Police Officer Required: No Accompanied by: None Is patient in pain?: No Allergies No Known Allergies Allergy (Verified 03/14/18 16:35) Medications Fluticasone 0.05% [Flonase Nasal [facility]] 2 spray NASAL DAILY 11/08/17 [History Confirmed 01/03/18] Omeprazole [Prilosec] 40 mg PO DAILY 11/08/17 [History Confirmed 01/03/18] biotin 10,000 mcg capsule 10,000 mcg PO DAILY ea 11/09/17 [History Confirmed 01/03/18] ketotifen 0.025 % (0.035 %) eye drops 2 drp EACH EYE DAILY ml 11/09/17 [History Confirmed 01/03/18] Ibuprofen 600 mg PO Q6H PRN 11/12/17 [History Confirmed 01/03/18] promethazine 25 mg tablet 25 mg PO 4X/DAY PRN #30 tab 12/17/17 [Rx Confirmed 01/03/18] doxycycline hyclate 100 mg capsule See Label Instructions PO BID #28 cap 12/26/17 [Rx Confirmed 01/03/18] PFSH Medical History GERD (gastroesophageal reflux disease) (Acute) Seasonal allergies (Acute) Surgical History History of foot surgery (Acute) History of nasal surgery (Acute 06/2016) Family History Grandmother Breast cancer Father Lung cancer Grandfather Cancer Diabetes Grandfather Colon cancer GREAT GRANDFATHER Grandmother Colon cancer GREAT GRANDMOTHER Social History Smoking Status: Current every day smoker alcohol intake: current alcohol intake frequency: other Alcohol type: beer details: SOCIAL DRINKING substance use type: does not use HPI evaluation complex nail bed injury right long finger tip after surgical repair - 11/13/17: Details: HISTORY OF PRESENT ILLNESS Comes in today with no pain complaints. She has returned to work and is doing ok so far. She wears her finger tip splint at work and is on a 20 lb lifting restriction thus far. The nail of the left big toe has come off and proximal nail growth is seen. This was the result of her surgery on 11/13/17 where she underwent complex repair nail bed defect with exposed bone (40%) ulnar aspect right long finger with nail bed graft from left big toe. She denies any fever. She is able to ambulate. She is wearing her splint at work and doesn't think she needs it anymore. when active because the pain is still there when she bumps her finger without the splint. She has finished OT with good range of motion of her finger. She had been on Doxycycline to help minimize development of osteomyelitis and has finished them. PAST MEDICAL HISTORY GERD. Complex nail bed injury right long finger tip with exposed bone. PAST SURGICAL HISTORY Foot surgery. Nasal surgery. Complex repair nail bed defect with exposed bone (40%) ulnar aspect right long finger with nail bed graft from left big toe - 11/13/17 MEDICATIONS Biotin. Doxycycline. Flonase. Ibuprofen. Prilosec. Ketotifen eye drops. Percocet. Phenergan. ALLERGIES None. SOCIAL HISTORY Patient is a smoker. Patient does not drink alcohol. FAMILY HISTORY Breast cancer - Grandmother. Colon cancer - Grandfather and Grandmother. Diabetes - Grandfather. Lung cancer - Father. REVIEW OF SYSTEMS General - Denies fever, fatigue, and weight loss. ENT - Denies nasal congestion and sore throat. Eyes - Denies cataracts and glaucoma. Endocrine - Denies excessive thirst and urination. Skin - Has nail bed injury right long finger tip. Musculoskeletal - Denies joint pain, joint stiffness, weakness of muscles and joints, back pain, and arthritis. Neuro - Denies headaches. Cardiovascular - Has chest pain. Denies shortness of breath with exertion. Psych - Denies anxiety and depression. Respiratory - Denies cough and shortness of breath. Patient is a smoker. Gastrointestinal - Denies nausea, vomiting, diarrhea, and constipation. Hematologic - Denies bleeding and abnormal bruising. Genitourinary - Denies hematuria and urinary frequency. PHYSICAL EXAMINATION General - Alert and oriented. HEENT - PERRL. EOMI. Throat is clear. Neck - Supple and nontender. No cervical adenopathy. Lungs - Clear to auscultation. Heart - Regular rate and rhythm. Abdomen - Soft and nondistended. Extremities - FROM. No axillary adenopathy. Radial pulses are palpable. Fingers are warm with good capillary refill. The right long finger swelling has resolved. Nail plate has come off. There is some proximal nail growth present. The underlying exposed nail bed appears healed and intact. She has good range of motion of her right long finger after finishing OT. The left big toe swelling has resolved. Nail plate has come off and there is proximal nail growth present. Neuro - CN II - XII grossly intact. ASSESSMENT 1. Complex nail bed injury defect with exposed bone (40%) ulnar aspect right long finger tip. 2. Smoker. 3. s/p complex repair nail bed defect with exposed bone (40%) ulnar aspect right long finger with nail bed graft from left big toe. PLAN She has finished the Doxycycline. She was instructed that if she develops any redness in the finger to call the office for evaluation and to restart her antibiotics. She is at risk for osteomyelitis in the future. Keep right hand and left leg elevated when sitting. She can stop the antibiotic ointment to the exposed nail bed. It remains healed. She had been wearing the finger splint for protection against bumping the tip of the finger and at work. She can stop the splint. Encouraged the patient to stop smoking as it may have deleterious effects on wound healing. Encourage range of motion exercises to minimize stiffness. She returned to work on 01/07/18 and is doing ok. Starting next week on 03/18/18, there will be no more restrictions and she will stop wearing the splint. Followup on an as needed basis. Assessment AND Plan Problems 1. Injury of nail bed of finger of right hand S69.91XA 2. Open wound of right middle finger with damage to nail S61.302A 3. Smoker F17.200 Coding Level of Care Code Off vis,est,level 3 Diagnoses Injury of nail bed of finger of right hand S69.91XA Open wound of right middle finger with damage to nail S61.302A Smoker F17.200 04/21/18 1628 <Electronically signed by Jose Gutiérrez MD> Date Jose Gutiérrez MD Cosigner Signature: Date (if applicable) CC: CNCO Observed: 03/26/2018 Status: COMPLETED Source: [place] 4:41 PM [facility] REPOSITORY HNO ID: [id number] Author: Mammography Coordinator Service: (none) Author Type: Physician Type: Letter Filed: 03/27/2018 11:32 PM Note Text: March 26, 2018 PID: [id number] Michelle SamTamra Garcia [address] [place] [address] Dear Ms. Garcia, We are pleased to inform you that the results of your recent breast imaging exam on 03/26/2018 are normal and we recommend that you return to your annual screening Mammography schedule. Early detection of cancer is very important. We also understand recommendations regarding breast cancer screening are controversial. Please discuss with your primary care provider which strategy is best for you and whether a mammogram is right for you. Your imaging studies and report will be kept on file at [facility] as part of your permanent medical record and are available for your continuing care. Thank you for allowing us to help in meeting your health care needs. Sincerely, Dr. Carnes Interpreting Radiologist [facility] (Return to Annual Mammogram schedule) PROGRESS Observed: 03/26/2018 Status: COMPLETED Source: [place] 4:39 PM [facility] [facility] HNO ID: [id number] Author: Lolita Capellan Rdms Service: (none) Author Type: (none) Type: Progress Notes Filed: 03/26/2018 4:39 PM Note Text: Radiology Service Progress Note PATIENT NAME: Michelle Garcia DATE OF SERVICE: March 26, 2018 TIME: 4:39 PM PATIENT IDENTITY VERIFICATION COMPLETED USING TWO (2) METHODS: Patient confirmed name verbally and Date of . PATIENT GENDER DATA: Female. status: : No status: NO. PATIENT RELEVANT IMPLANT DATA REVIEWED: Not Applicable RADIOLOGY DEPARTMENT: Ultrasound PERIPHERAL IV DATA: Not applicable SIGNED BY: Lolita Capellan Rdms March 26, 2018 4:39 PM [facility] Observed: 03/26/2018 Status: F Source: [facility] 4:24 PM [facility] REPOSITORY * * *Final Report* * * DATE OF EXAM: Mar 26 2018 4:24PM [facility] 0593 - [facility] LT / PROCEDURE REASON: 6 month bilateral breast / abnormal mammogram * * * * Physician Interpretation * * * * #[id number] - [facility] LT ULTRASOUND OF LEFT BREAST: 03/26/2018 HISTORY: 6 Month Bilateral Breast / Abnormal Mammogram. RESULT: No prior exams were available for comparison. Ultrasound of the left breast was performed. Frye scale images of the real-time examination were reviewed. There is a benign complex cyst in the left breast at 12 o'clock posterior depth. This correlates with mammography findings. IMPRESSION: BENIGN FINDING There is no sonographic evidence of malignancy. The complex cyst in the left breast is benign. Return to annual mammogram screening schedule is recommended. Adrianna cardona/mary:03/26/2018 16:43:00 Narcotics And Vice Detective: Lolita Capellan [facility] Ultrasound BI-RADS: 2 Benign finding Furniture Finisher Apprentice: Mary Transcribe Date/Time: Mar 26 2018 4:19P Dictated by : ADRIANNA CARNES DO This examination was interpreted and the report reviewed and electronically signed by: ADRIANNA CARNES DO on Mar 26 2018 4:43PM EST [id number] [facility] US BREAST LTD Observed: 03/26/2018 Status: F Source: [place] RT 4:19 PM [facility] [place] REPOSITORY * * *Final Report* * * DATE OF EXAM: Mar 26 2018 4:19PM [facility] 0594 - [facility] US BREAST LTD RT / PROCEDURE REASON: 6 month bilateral breast / abnormal mammogram * * * * Physician Interpretation * * * * #[id number] - [facility] US BREAST LTD RT ULTRASOUND OF RIGHT BREAST: 03/26/2018 HISTORY: 6 Month Bilateral Breast / Abnormal Mammogram. RESULT: No prior exams were available for comparison. Ultrasound of the right breast was performed. Frye scale images of the real-time examination were reviewed. There is a benign complex cyst in the right breast at 11 o'clock middle depth. This abnormality is increased in size and correlates with mammography findings. IMPRESSION: BENIGN FINDING There is no sonographic evidence of malignancy. The complex cyst in the right breast is benign. Return to annual mammogram screening schedule is recommended. Adrianna cardona/mary:03/26/2018 16:43:57 Narcotics And Vice Detective: Lolita Capellan [facility] Ultrasound BI-RADS: 2 Benign finding Furniture Finisher Apprentice: Mary Transcribe Date/Time: Mar 26 2018 4:11P Dictated by : ADRIANNA CARNES DO This examination was interpreted and the report reviewed and electronically signed by: ADRIANNA CARNES DO on Mar 26 2018 4:43PM EST [id number] [facility] DIAGNOSTIC JOSE Observed: 03/26/2018 Status: F Source: [place] 4:17 PM [facility] REPOSITORY * * *Final Report* * * DATE OF EXAM: Mar 26 2018 4:17PM [facility] 0620 - [facility] DIAGNOSTIC JOSE / PROCEDURE REASON: 6 month bilateral breast / abnormal mammogram * * * * Physician Interpretation * * * * RESULT: #[id number] - [facility] DIAGNOSTIC JOSE BILATERAL DIGITAL DIAGNOSTIC MAMMOGRAM WITH CAD: 03/26/2018 HISTORY: 6 Month Bilateral / Abnormal Mammogram. RESULT: TECHNIQUE: The study was acquired using full field digital technology and interpreted from soft copy. Current study was also evaluated with a Computer Aided Detection (CAD). Comparison is made to exams dated: 09/25/2017 mammogram - [facility], 09/20/2017 mammogram - [facility], 04/10/2017 mammogram, 10/10/2016 mammogram - [facility], 09/14/2016 mammogram, and 09/13/2015 mammogram - [facility]. The tissue of both breasts is heterogeneously dense. This may lower the sensitivity of mammography. There is a density in the right breast at 11 o'clock posterior depth. This is increased in size. There also are multiple stable benign nodules in the right breast superior lateral quadrant middle depth. There is a new asymmetry in the left breast at 12 o'clock posterior depth. There also are multiple stable benign densities in the left breast central to the nipple middle depth. No other significant masses or calcifications are seen in either breast. IMPRESSION: BENIGN FINDING The density in the right breast at 11 o'clock posterior depth is indeterminate. The new asymmetry in the left breast at 12 o'clock posterior depth is indeterminate. An ultrasound is recommended. A single nodule in the upper central portion of the RIGHT breast has enlarged. This was shown to represent a mildly complex cyst on ultrasound. Multiple other nodules in the RIGHT breast are unchanged. New nodule at 12:00 near the chest wall in the LEFT breast appears to represent fibrocystic changes on ultrasound. Other nodular densities in the LEFT breast are unchanged felt to be benign. Recommendation: Return to annual screening mammograms. Adrianna Carnes D.O. rl/:03/26/2018 16:41:56 Narcotics And Vice Detective: Clair TAYLOR)([place]), [facility] letter sent: Return to Annual Mammogram BI-RADS: 2 Benign finding Furniture Finisher Apprentice: Mary Transcribe Date/Time: Mar 26 2018 3:36P Dictated by: ADRIANNA CARNES DO This examination was interpreted and the report reviewed and electronically signed by: ADRIANNA CARNES DO on Mar 26 2018 4:41PM EST [id number] Observed: 03/26/2018 Status: COMPLETED Source: [place] 3:35 PM [facility] [place] REPOSITORY O ID: [id number] Author: Dinora Marshall Service: (none) Author Type: (none) Type: Progress Notes Filed: 03/26/2018 3:36 PM Note Text: Radiology Service Progress Note PATIENT NAME: Michelle Garcia DATE OF SERVICE: March 26, 2018 TIME: 3:36 PM PATIENT IDENTITY VERIFICATION COMPLETED USING TWO (2) METHODS: Patient confirmed name verbally and Date of . PATIENT GENDER DATA: Female. status: : No status: NO. PATIENT RELEVANT IMPLANT DATA REVIEWED: Not Applicable RADIOLOGY DEPARTMENT: [facility] DATA: Not applicable SIGNED BY: Dinora Marshall March 26, 2018 3:36 PM OT D/C SUMMARY Observed: 03/12/2018 Status: F Source: [place] 4:[address] [facility] REPOSITORY [facility] Occupational Therapy Health[address] [place] [address] Fax REHABILITATION SERVICES DISCHARGE SUMMARY MR#: [id number] Acct: [id number] Name: MICHELLE GARCIA Rep #: [id number] : 1975 42 From: Jennie Suarez Referring Dr.: Jose Gutiérrez MD Status: REG RCR Eval Date: Discharge Date: HP - OT D/C Summary It has been my pleasure to treat MICHELLE GARCIA under orders from Jose Gutiérrez, for the diagnosis of unspecified injury R hand/finger, open wound R middle finger w/ damage nail for a total of 12 visit(s). Please see the following information for a summary of their discharge status. - Objective Objective/Function: increase flexibility of R middle finger PIP and DIP. - Goals Patient Goals: Regain Strength, Decrease Pain, Return to Work, Decrease Swelling/Stiffness, Improve Fine Motor Skills, Use Hand/Wrist/Arm Normally Again, Decrease Tingling/Numbness, Increase ROM, Be More Independent in ADLS, Resume Former Household Responsibilities (Cooking,Cleaning,Yard, etc.) Goal:: Pt will progress w/ R hand platform beater strength by 30# to assist with functional living tasks independently. Goal:: Pt will progress with R middle finger DIP flexion and extension by 5 degrees to increase ability to complete BADL's with increased independence. Goal:: Pt will demo no pain greater than 1/10 in R middle finger by time for D/C from OT. Goal:: Pt will be able to use R middle finger to assist w/ grooming/hygiene tasks independently. Goal:: Pt will be educated on HEP for R hand with good understanding and demo 100%x. - Plan Plan: d/c pt from OT services this date. See d/c for all details. - D/C Information Discharge Comments: Pt has made good progress with Occupational Therapy. Pt demonstrates no pain R middle finger. Pt guarded of R middle finger and continues to wear splint R middle finger. Pt has progressed to 35# platform beater strength R hand. Pt has been educated on HEP for R hand platform beater strengthening exercises using theraputty with handout given. Pt demo good understanding of use of theraputty and stress ball for strengthening exercises as well as functionaly using R hand again with BADLs. Pt educated on blocking exercises for R middle finger to increase flexion of DIP and PIP and prolonged stretching composit fist. Pt demo 45' AROM flexion of R middle finger PIP and 111' flexion DIP. Pt no longer requires OT services at this time. If there are questions or concerns regarding this patient's occupational therapy, please fell free to call me at [phone]. Thank you for the referral of this patient. Sincerely, Jennie Suarez <Electronically signed by Jennie Suarez > 03/12/18 1648 CC: No Primary Care Physician; Jose Gutiérrez MD [facility] Signed PLASTIC SURGERY Observed: 02/17/2018 Status: F Source: [place] VISIT REPORT 7:[address] [facility] REPOSITORY [facility] [address] [place] [address] OFFICE VISIT Date of Service: 01/24/18 MR#: [id number] Acct: [id number] Name: MICHELLE GARCIA Rep #: [id number] : 1975 Provider: Jose Gutiérrez MD Age/Sex: 42/F Location: [email or web address] Status: Signed Intake Vital Signs01/24/18 Height 5 ft 3 in 01/24/18 Weight: 171 lb Intake Visit Reasons: evaluation complex nail bed injury right long finger tip after surgical repair - 11/13/17 Commissioned Police Officer Required: No Accompanied by: None Is patient in pain?: No Allergies No Known Allergies Allergy (Verified 01/24/18 16:46) Medications Fluticasone 0.05% [Flonase Nasal [facility]] 2 spray NASAL DAILY 11/08/17 [History Confirmed 01/03/18] Omeprazole [Prilosec] 40 mg PO DAILY 11/08/17 [History Confirmed 01/03/18] biotin 10,000 mcg capsule 10,000 mcg PO DAILY ea 11/09/17 [History Confirmed 01/03/18] ketotifen 0.025 % (0.035 %) eye drops 2 drp EACH EYE DAILY ml 11/09/17 [History Confirmed 01/03/18] Ibuprofen 600 mg PO Q6H PRN 11/12/17 [History Confirmed 01/03/18] promethazine 25 mg tablet 25 mg PO 4X/DAY PRN #30 tab 12/17/17 [Rx Confirmed 01/03/18] doxycycline hyclate 100 mg capsule See Label Instructions PO BID #28 cap 12/26/17 [Rx Confirmed 01/03/18] PFSH Medical History GERD (gastroesophageal reflux disease) (Acute) Seasonal allergies (Acute) Surgical History History of foot surgery (Acute) History of nasal surgery (Acute 06/2016) Family History Grandmother Breast cancer Father Lung cancer Grandfather Cancer Diabetes Grandfather Colon cancer GREAT GRANDFATHER Grandmother Colon cancer GREAT GRANDMOTHER Social History Smoking Status: Current every day smoker alcohol intake: current alcohol intake frequency: other Alcohol type: beer details: SOCIAL DRINKING substance use type: does not use HPI evaluation complex nail bed injury right long finger tip after surgical repair - 11/13/17: Details: HISTORY OF PRESENT ILLNESS Comes in today with no pain complaints. She has returned to work and is doing ok so far. She wears her finger tip splint at work and is on a 20 lb lifting restriction thus far. The nail of the left big toe is stable. This was the result of her recent surgery on 11/13/17 where she underwent complex repair nail bed defect with exposed bone (40%) ulnar aspect right long finger with nail bed graft from left big toe. She denies any fever. She is able to ambulate. She wears her splint when active because the pain is still there when she bumps her finger without the splint. She has started OT and the stiffness in her finger has improved. She is on Doxycycline to help minimize development of osteomyelitis. PAST MEDICAL HISTORY GERD. Complex nail bed injury right long finger tip with exposed bone. PAST SURGICAL HISTORY Foot surgery. Nasal surgery. Complex repair nail bed defect with exposed bone (40%) ulnar aspect right long finger with nail bed graft from left big toe - 11/13/17 MEDICATIONS Biotin. Doxycycline. Flonase. Ibuprofen. Prilosec. Ketotifen eye drops. Percocet. Phenergan. ALLERGIES None. SOCIAL HISTORY Patient is a smoker. Patient does not drink alcohol. FAMILY HISTORY Breast cancer - Grandmother. Colon cancer - Grandfather and Grandmother. Diabetes - Grandfather. Lung cancer - Father. REVIEW OF SYSTEMS General - Denies fever, fatigue, and weight loss. ENT - Denies nasal congestion and sore throat. Eyes - Denies cataracts and glaucoma. Endocrine - Denies excessive thirst and urination. Skin - Has nail bed injury right long finger tip. Musculoskeletal - Denies joint pain, joint stiffness, weakness of muscles and joints, back pain, and arthritis. Neuro - Denies headaches. Cardiovascular - Has chest pain. Denies shortness of breath with exertion. Psych - Denies anxiety and depression. Respiratory - Denies cough and shortness of breath. Patient is a smoker. Gastrointestinal - Denies nausea, vomiting, diarrhea, and constipation. Hematologic - Denies bleeding and abnormal bruising. Genitourinary - Denies hematuria and urinary frequency. PHYSICAL EXAMINATION General - Alert and oriented. HEENT - PERRL. EOMI. Throat is clear. Neck - Supple and nontender. No cervical adenopathy. Lungs - Clear to auscultation. Heart - Regular rate and rhythm. Abdomen - Soft and nondistended. Extremities - FROM. No axillary adenopathy. Radial pulses are palpable. Fingers are warm with good capillary refill. The right long finger swelling has resolved. Nail plate has come off. There is some proximal nail growth present. The underlying exposed nail bed appears healed and intact. Her right long finger tip was a little stiff at the DIP joint and has improved with OT. She has good range of motion at this time. The left big toe swelling has resolved. Nail plate is in place. Neuro - CN II - XII grossly intact. ASSESSMENT 1. Complex nail bed injury defect with exposed bone (40%) ulnar aspect right long finger tip. 2. Smoker. 3. s/p complex repair nail bed defect with exposed bone (40%) ulnar aspect right long finger with nail bed graft from left big toe. PLAN Continue Doxycycline. She is at risk for osteomyelitis in the future. Keep right hand and left leg elevated when sitting. Continue antibiotic ointment to the exposed nail bed for another couple of weeks. Patient may wear finger splint for protection against bumping the tip of the finger. Encouraged the patient to stop smoking as it may have deleterious effects on wound healing. The right long finger tip shows good range of motion with the assist of OT. She returned to work on 01/07/18 and is doing ok. She states she still wears the splint at work. Will have her return to work 01/07/18 (tentative). She will continue her splint until 03/08/18, maybe longer depending on how she does at work initially. She states she will need to wear the splint at work initially because of the risk of re-injuring the finger. She states it is ok to return to work with the splint. Will continue the 20 lb lifting restriction until 03/08/18. Followup one month. Assessment AND Plan Problems 1. Open wound of right middle finger with damage to nail S61.302A 2. Injury of nail bed of finger of right hand S69.91XA 3. Smoker F17.200 Coding Level of Care Code Off vis,est,level 3 Diagnoses Open wound of right middle finger with damage to nail S61.302A Injury of nail bed of finger of right hand S69.91XA Smoker F17.200 02/17/181946 <Electronically signed by Jose Gutiérrez MD> Date Jose Gutiérrez MD Cosigner Signature: Date (if applicable) CC: PLASTIC SURGERY Observed: 02/16/2018 Status: F Source: [place] VISIT REPORT 4:[address] [facility] REPOSITORY [facility] [address] [address] OFFICE VISIT Date of Service: 01/03/18 MR#: [id number] Acct: [id number] Name: MICHELLE GARCIA Rep #: [id number] : 1975 Provider: Jose Gutiérrez MD Age/Sex: 42/F Location: [facility] Status: Signed Intake Vital Signs01/03/18 Height 5 ft 3 in 01/03/18 Weight: 174 lb 4 oz Intake Visit Reasons: evaluation complex nail bed injury right long finger tip after surgical repair - 11/13/17 Commissioned Police Officer Required: No Accompanied by: None Is patient in pain?: Yes (RIGHT HAND FINGER THROBBING PAIN) Pain scale (1-10): 5 Allergies No Known Allergies Allergy (Verified 01/24/18 16:46) Medications Fluticasone 0.05% [Flonase Nasal [facility]] 2 spray NASAL DAILY 11/08/17 [History Confirmed 01/03/18] Omeprazole [Prilosec] 40 mg PO DAILY 11/08/17 [History Confirmed 01/03/18] biotin 10,000 mcg capsule 10,000 mcg PO DAILY ea 11/09/17 [History Confirmed 01/03/18] ketotifen 0.025 % (0.035 %) eye drops 2 drp EACH EYE DAILY ml 11/09/17 [History Confirmed 01/03/18] Ibuprofen 600 mg PO Q6H PRN 11/12/17 [History Confirmed 01/03/18] promethazine 25 mg tablet 25 mg PO 4X/DAY PRN #30 tab 12/17/17 [Rx Confirmed 01/03/18] doxycycline hyclate 100 mg capsule See Label Instructions PO BID #28 cap 12/26/17 [Rx Confirmed 01/03/18] PFSH Medical History GERD (gastroesophageal reflux disease) (Acute) Seasonal allergies (Acute) Surgical History History of foot surgery (Acute) History of nasal surgery (Acute 06/2016) Family History Grandmother Breast cancer Father Lung cancer Grandfather Cancer Diabetes Grandfather Colon cancer GREAT GRANDFATHER Grandmother Colon cancer GREAT GRANDMOTHER Social History Smoking Status: Current every day smoker alcohol intake: current alcohol intake frequency: other Alcohol type: beer details: SOCIAL DRINKING substance use type: does not use HPI evaluation complex nail bed injury right long finger tip after surgical repair - 11/13/17: Details: HISTORY OF PRESENT ILLNESS Comes in today with concern that the nail plate has come off. She is scheduled to return to work next week and wants to make sure there are no problems with the nail bed now that the nail plate has been removed. There is some pain in the right long finger and her left big toe when it is bumped. She has enough pain medication and uses mostly Ibuprofen as needed. This was the result of her recent surgery on 11/13/17 where she underwent complex repair nail bed defect with exposed bone (40%) ulnar aspect right long finger with nail bed graft from left big toe. She denies any fever. She is able to ambulate. She wears her splint when active because the pain is worse when she bumps her finger without the splint. She has started OT and the stiffness in her finger has improved. She is on Doxycycline to help minimize development of osteomyelitis. PAST MEDICAL HISTORY GERD. Complex nail bed injury right long finger tip with exposed bone. PAST SURGICAL HISTORY Foot surgery. Nasal surgery. Complex repair nail bed defect with exposed bone (40%) ulnar aspect right long finger with nail bed graft from left big toe - 11/13/17 MEDICATIONS Biotin. Doxycycline. Flonase. Ibuprofen. Prilosec. Ketotifen eye drops. Percocet. Phenergan. ALLERGIES None. SOCIAL HISTORY Patient is a smoker. Patient does not drink alcohol. FAMILY HISTORY Breast cancer - Grandmother. Colon cancer - Grandfather and Grandmother. Diabetes - Grandfather. Lung cancer - Father. REVIEW OF SYSTEMS General - Denies fever, fatigue, and weight loss. ENT - Denies nasal congestion and sore throat. Eyes - Denies cataracts and glaucoma. Endocrine - Denies excessive thirst and urination. Skin - Has nail bed injury right long finger tip. Musculoskeletal - Denies joint pain, joint stiffness, weakness of muscles and joints, back pain, and arthritis. Neuro - Denies headaches. Cardiovascular - Has chest pain. Denies shortness of breath with exertion. Psych - Denies anxiety and depression. Respiratory - Denies cough and shortness of breath. Patient is a smoker. Gastrointestinal - Denies nausea, vomiting, diarrhea, and constipation. Hematologic - Denies bleeding and abnormal bruising. Genitourinary - Denies hematuria and urinary frequency. PHYSICAL EXAMINATION General - Alert and oriented. HEENT - PERRL. EOMI. Throat is clear. Neck - Supple and nontender. No cervical adenopathy. Lungs - Clear to auscultation. Heart - Regular rate and rhythm. Abdomen - Soft and nondistended. Extremities - FROM. No axillary adenopathy. Radial pulses are palpable. Fingers are warm with good capillary refill. Nails look good. No bleeding noted underneath the nails. The right long finger swelling has resolved. Nail plate has come off. There is some proximal nail growth present. The underlying exposed nail bed appears healed and intact. Her right long finger tip is a little stiff at the DIP joint. She has started OT to help with range of motion exercises. The left big toe swelling has resolved. Nail plate is in place. Neuro - CN II - XII grossly intact. ASSESSMENT 1. Complex nail bed injury defect with exposed bone (40%) ulnar aspect right long finger tip. 2. Smoker. 3. s/p complex repair nail bed defect with exposed bone (40%) ulnar aspect right long finger with nail bed graft from left big toe. PLAN Continue Doxycycline. She is at risk for osteomyelitis in the future. Keep right hand and left leg elevated when sitting. Continue antibiotic ointment to the exposed nail bed for another couple of weeks. Patient may wear finger splint for protection against bumping the tip of the finger. Encouraged the patient to stop smoking as it may have deleterious effects on wound healing. The right long finger tip is less stiff at the DIP joint from the splint after starting OT for range of motion exercises, strengthening, and edema management. Followup one month. She states she will have trouble at work because of the splint. She doesn't think there is light duty. Will have her return to work 01/07/18 (tentative). She will continue her splint until 01/22/18, maybe longer depending on how she does at work initially. She states she will need to wear the splint at work initially because of the risk of re-injuring the finger. She states it is ok to return to work with the splint. Will also have a 20 lb lifting restriction. Assessment AND Plan Problems 1. Open wound of right middle finger with damage to nail S61.302A 2. Injury of nail bed of finger of right hand S69.91XA 3. Smoker F17.200 Coding Level of Care Code Off vis,est,level 3 Diagnoses Open wound of right middle finger with damage to nail S61.302A Injury of nail bed of finger of right hand S69.91XA Smoker F17.200 02/16/18 1610 <Electronically signed by Jose Gutiérrez MD> Date Jose Gutiérrez MD Cosigner Signature: Date (if applicable) CC: PLASTIC SURGERY Observed: 02/10/2018 Status: F Source: [place] VISIT REPORT 8:[address] [facility] REPOSITORY [facility] [address] [place] [address] OFFICE VISIT Date of Service: 12/26/17 MR#: [id number] Acct: [id number] Name: MICHELLE GARCIA Rep #: [id number] : 1975 Provider: Jose Gutiérrez MD Age/Sex: 42/F Location: [facility] Status: Signed Intake Vital Signs12/26/17 Height 5 ft 3 in 12/26/17 Weight: 173 lb 4 oz Intake Visit Reasons: evaluation complex nail bed injury right long finger tip after surgical repair - 11/13/17 Commissioned Police Officer Required: No Accompanied by: None Is patient in pain?: Yes (right hand finger pain is throbbing ) Pain scale (1-10): 5 Allergies No Known Allergies Allergy (Verified 01/24/18 16:46) Medications Fluticasone 0.05% [Flonase Nasal [facility]] 2 spray NASAL DAILY 11/08/17 [History Confirmed 01/03/18] Omeprazole [Prilosec] 40 mg PO DAILY 11/08/17 [History Confirmed 01/03/18] biotin 10,000 mcg capsule 10,000 mcg PO DAILY ea 11/09/17 [History Confirmed 01/03/18] ketotifen 0.025 % (0.035 %) eye drops 2 drp EACH EYE DAILY ml 11/09/17 [History Confirmed 01/03/18] Ibuprofen 600 mg PO Q6H PRN 11/12/17 [History Confirmed 01/03/18] promethazine 25 mg tablet 25 mg PO 4X/DAY PRN #30 tab 12/17/17 [Rx Confirmed 01/03/18] doxycycline hyclate 100 mg capsule See Label Instructions PO BID #28 cap 12/26/17 [Rx Confirmed 01/03/18] PFSH Medical History GERD (gastroesophageal reflux disease) (Acute) Seasonal allergies (Acute) Surgical History History of foot surgery (Acute) History of nasal surgery (Acute 06/2016) Family History Grandmother Breast cancer Father Lung cancer Grandfather Cancer Diabetes Grandfather Colon cancer GREAT GRANDFATHER Grandmother Colon cancer GREAT GRANDMOTHER Social History Smoking Status: Current every day smoker alcohol intake: current alcohol intake frequency: other Alcohol type: beer details: SOCIAL DRINKING substance use type: does not use HPI evaluation complex nail bed injury right long finger tip after surgical repair - 11/13/17: Details: HISTORY OF PRESENT ILLNESS Comes in today with some pain in the right long finger and her left big toe only when it is bumped. She has enough pain medication and uses mostly Ibuprofen as needed. This was the result of her recent surgery on 11/13/17 where she underwent complex repair nail bed defect with exposed bone (40%) ulnar aspect right long finger with nail bed graft from left big toe. She denies any fever. She is able to ambulate. She wears her splint when active because the pain is worse when she bumps her finger without the splint. She has started OT. PAST MEDICAL HISTORY GERD. Complex nail bed injury right long finger tip with exposed bone. PAST SURGICAL HISTORY Foot surgery. Nasal surgery. Complex repair nail bed defect with exposed bone (40%) ulnar aspect right long finger with nail bed graft from left big toe - 11/13/17 MEDICATIONS Biotin. Doxycycline. Flonase. Ibuprofen. Prilosec. Ketotifen eye drops. Percocet. Phenergan. ALLERGIES None. SOCIAL HISTORY Patient is a smoker. Patient does not drink alcohol. FAMILY HISTORY Breast cancer - Grandmother. Colon cancer - Grandfather and Grandmother. Diabetes - Grandfather. Lung cancer - Father. REVIEW OF SYSTEMS General - Denies fever, fatigue, and weight loss. ENT - Denies nasal congestion and sore throat. Eyes - Denies cataracts and glaucoma. Endocrine - Denies excessive thirst and urination. Skin - Has nail bed injury right long finger tip. Musculoskeletal - Denies joint pain, joint stiffness, weakness of muscles and joints, back pain, and arthritis. Neuro - Denies headaches. Cardiovascular - Has chest pain. Denies shortness of breath with exertion. Psych - Denies anxiety and depression. Respiratory - Denies cough and shortness of breath. Patient is a smoker. Gastrointestinal - Denies nausea, vomiting, diarrhea, and constipation. Hematologic - Denies bleeding and abnormal bruising. Genitourinary - Denies hematuria and urinary frequency. PHYSICAL EXAMINATION General - Alert and oriented. HEENT - PERRL. EOMI. Throat is clear. Neck - Supple and nontender. No cervical adenopathy. Lungs - Clear to auscultation. Heart - Regular rate and rhythm. Abdomen - Soft and nondistended. Extremities - FROM. No axillary adenopathy. Radial pulses are palpable. Fingers are warm with good capillary refill. Nails look good. No bleeding noted underneath the nails. The right long finger tip is mildly swollen. Nail plate is in place. Her right long finger tip is a little stiff at the DIP joint. She has started OT to help with range of motion exercises. The left big toe is mildly swollen. Nail plate is in place. Neuro - CN II - XII grossly intact. ASSESSMENT 1. Complex nail bed injury defect with exposed bone (40%) ulnar aspect right long finger tip. 2. Smoker. 3. s/p complex repair nail bed defect with exposed bone (40%) ulnar aspect right long finger with nail bed graft from left big toe. PLAN Continue Doxycycline. She is at risk for osteomyelitis in the future. Will renew the antibiotic. Keep right hand and left leg elevated when sitting. Continue antibiotic ointment to the suture lines daily for another week. Want to leave the nail plate alone because I don't want the nail plate to come off too soon which may affect the healing of the nail bed graft. When it does come off, apply antibiotic ointment to the healing nail bed daily until seen back in the office. Patient may wear finger splint for protection against bumping the tip of the finger. Encouraged the patient to stop smoking as it may have deleterious effects on wound healing. The right long finger tip is a little stiff at the DIP joint from the splint. She has started OT for range of motion exercises, strengthening, and edema management. Followup one month. She states she will have trouble at work because of the splint. She doesn't think there is light duty. Will have her return to work 01/07/18 (tentative). She will continue her splint until 01/22/18, maybe longer depending on how she does at work initially. She states she will need to wear the splint at work initially because of the risk of re-injuring the finger. She states it is ok to return to work with the splint. Will also have a 20 lb lifting restriction. Assessment AND Plan Problems 1. Open wound of right middle finger with damage to nail S61.302A 2. Injury of nail bed of finger of right hand S69.91XA 3. Smoker F17.200 Medications New: Coding Level of Care Code Off vis,est,level 3 Diagnoses Open wound of right middle finger with damage to nail S61.302A Injury of nail bed of finger of right hand S69.91XA Smoker F17.200 02/10/181999 <Electronically signed by Jose Gutiérrez MD> Date Jose Gutiérrez MD Cosigner Signature: Date (if applicable) CC: RE-EVALUTION OT Observed: 01/31/2018 Status: F Source: [place] 6:[address] [facility] REPOSITORY [facility] Occupational Therapy Health[address] [place], [place] [address] Fax REEVALUATION / MEDICARE RECERTIFICATION OCCUPATIONAL THERAPY MR#: [id number] Acct: [id number] Name: MICHELLE GARCIA Rep #: [id number] : 1975 42 From: Jennie Suarez Referring Dr.: Jose Gutiérrez MD Status: REG RCR Insurance: CARA Huang Date: SELF PAY INSURANCE Jose Gutiérrez, It has been my pleasure to treat MICHELLE GARCIA over the last 11 visits for unspecified injury R hand/finger, open wound R middle finger w/ damage nail. Please see the progress note below for an update on the occupational therapy plan of care! Subjective: Pt arrived stating no pain R middle finger Objective/Function: Re-evaluation this date. Pt making progress with OT goals. Pt decreasing pain of R middle finger with movement and at rest 0/10 pain. Pt platform beater strength R hand remains the same 30#. Pt progressing with R middle finger flexion/extension MP 0/62, PIP 0/55, DIP 0/8. Pt has been educated on joint mobilization exercises, yellow theraputty exercises and prolonged stretching techniques for R hand/middle finger. Pt requires further more occupational therapy services to increase flexion of R middle finger and increase functional platform beater strength of R hand. 3 visits within next 6 wks. Plan Frequency: 3 visits Duration: 6 Weeks Plan: cont w/ prior POC Goals - Goals Goal:: Pt will progress w/ R hand platform beater strength by 30# to assist with functional living tasks independently. Goal:: Pt will progress with R middle finger DIP flexion and extension by 5 degrees to increase ability to complete BADL's with increased independence. Goal:: Pt will demo no pain greater than 1/10 in R middle finger by time for D/C from OT. Goal:: Pt will be able to use R middle finger to assist w/ grooming/hygiene tasks independently. Goal:: Pt will be educated on HEP for R hand with good understanding and demo 100%x. Anticipated Interventions Anticipated Interventions: A/AAROM/PROM, Strengthening, Edema Control, Scar Care, Massage, Wound Care, Modalities, Joint Protection/Energy Conservation, Fine Motor Coord/Wil, ADL Training, Home Program Please do not hesitate to contact me at [phone] by phone or if you have questions or concerns regarding this new plan of care! Sincerely, Jennie Suarez <Electronically signed by Jennie Suarez > 01/31/18 1823 CC: No Primary Care Physician; Jose Gutiérrez MD SLGoran Signed For Medicare only, by signing this I certify the plan of care. Physicians Signature Date PROGRESS Observed: 01/21/2018 Status: COMPLETED Source: [place] 9:54 AM [facility] [place] REPOSITORY O ID: [id number] Author: Rosamaria (Cholo) Pedro Service: (none) Author Type: Nurse Practitioner Type: Progress Notes Filed: 01/21/2018 11:06 AM Note Text: Michelle Garcia a 42 year old female who is returning today so that her omeprazole will be refilled. She had been seeing Dr. Starks. She plans to establish with Charbel Blackburn. She hasn't been seen in this office since 03/22/17 (regarding bowel issues). It was 12/21/16 that I last saw her regarding dyspepsia or GERD. That note has been reviewed. The patient was seen by Dr. Kike Arias for upper endoscopy 07/13/15. The procedure report has been reviewed and findings as follows: Findings: ? ? ?LA Grade A (one or more mucosal breaks less than 5 mm, not extending ? ? ?between tops of 2 mucosal folds) esophagitis with no bleeding was found ? ? ?38 to 39 cm from the incisors. Biopsies were taken with a cold forceps ? ? ?for histology. ? ? ?Diffuse mildly erythematous mucosa without bleeding was found in the ? ? ?gastric antrum. Biopsies were taken with a cold forceps for histology. ? ? ?The examined duodenum was normal. FINAL DIAGNOSIS 1. Stomach, antrum, biopsy (A) - Gastric mucosa with no significant pathologic change. -No morphologic evidence of Helicobacter. 2. Distal esophagus, biopsy (B) - Squamous esophageal mucosa with only mild chronic esophagitis. -Gastric-type mucosa, negative for goblet cells and dysplasia. Dr. Madden performed lower endoscopy on 03/30/2017. The patient was found to have the following: Findings: ? ? ?The perianal and digital rectal examinations were normal. ? ? ?The terminal ileum appeared normal. ? ? ?The colon (entire examined portion) appeared normal. Biopsies for ? ? ?histology were taken with a cold forceps from the cecum and sigmoid ? ? ?colon for evaluation of microscopic colitis. ? ? ?The retroflexed view of the distal rectum and anal verge was normal and ? ? ?showed no anal or rectal abnormalities. ? ? Pathology demonstrated: FINAL DIAGNOSIS 1. Terminal ileum, biopsy (A) - Small intestinal mucosa with no significant pathologic change. 2. Colon, random, biopsy (B) - Colonic mucosa with no significant pathologic change. Presenting complaint: The patient presents today to refill omeprazole. She tells me that she has to take it daily or she will experience regurgitation, or at least a feeling of having vomited. The patient reports occasional water brash in spite of taking it daily. The patient has been on pantoprazole, but doesn't want to try that again. Would like to remain on the omepraozle. The patient sleeps on a regular mattress with the head of the bed flat. We discussed the need to elevate the head of the bed. The patient denies change in bowel habits, rectal bleeding or abdominal pain. Having a bowel movement routinely. REVIEW OF SYSTEMS: GENERAL: No unplanned weight loss. GI: The patient states that her appetite has been good. She does get hungry. There has been no nausea, no vomiting. She denies dysphagia and denies odynophagia. There occasionally been indigestion with heartburn. There has occasionally been regurgitation. Bowel habits have been regular. There has not been diarrhea. There has not been constipation. The patient denies rectal bleeding. There has not been melena. No abdominal pain. All other reviewed and negative other than HPI. PAST MEDICAL HISTORY Diagnosis Date - Allergic rhinitis, cause unspecified Allergic rhinitis - Asthma borderline - Chest pain, unspecified - Dysplasia of cervix, unspecified 2001 severe dysplasia - Esophagitis, unspecified - GERD (gastroesophageal reflux disease) - Snoring - Tobacco use disorder PAST SURGICAL HISTORY Procedure Laterality Date - CERVIX UTERI CONIZA LP ELCTRO EXCI 2001 LEEP-Cervix - COLONOSCOPY W/BX 03/30/2017 Normal visualized: Normal terminal ileum-biopsies returned as normal terminal ileum and no signs of microscopic colitis - EGD W/O [facility] SPECIMEN W/BX [id number] - FNA WITH IMAGING Right 08/17/15 U/S FNA right thyroid - INSERTION OF IUD 09/03/2012 - PAST SURGICAL HISTORY OF 1996 foot surgery on right - PAST SURGICAL HISTORY OF 12/13/12 Right foot bone shaved 4th toe, Dr. Carpio - RHINOPLASTY 07/11/2016 - SEPTOPLASTY Jul [address] Jacquelyn Pulido. FAMILY HISTORY Problem Relation Age of Onset - Breast Cancer Maternal Grandmother - Cancer Maternal Grandfather leukemia - Diabetes Paternal Grandfather - heart attack [OTHER] Mother - Cancer Father STAGE 4 LUNG - psoriasis [OTHER] Father - Cancer Paternal Uncle ? primary. - Cancer Other Colon. Both maternal great grandparents. - Other [OTHER] Other 5 of mgf's sibling with cancer various types Current Outpatient Prescriptions: Omeprazole 40 mg capsule Take 1 capsule by mouth once daily. Disp: 30 capsule Rfl: 3 levonorgestrel (MIRENA) 20 mcg/24 hr (5 years) IUD Inserted in office Disp: 1 Each Rfl: 0 ketotifen fumarate (ZADITOR) 0.025 % (0.035 %) ophthalmic solution 1 Drop twice daily. Disp: Rfl: Biotin 10,000 mcg cap Take by mouth once daily. Disp: Rfl: fluticasone (FLONASE) 50 mcg/actuation nasal spray Use 1 [facility] in each nostril once daily. Disp: Rfl: No current facility-administered medications for this visit. SOCIAL HISTORY: Patient is single. She smokes 1/2 ppd andreports her alcohol use as socially. PHYSICAL EXAMINATION: Blood pressure 128/87, pulse 71, height 160 cm (5' 3), weight 75.8 kg (167 lb). General Appearance: Well appearing, alert, in no acute distress, well-hydrated, well nourished. Skin: Skin color, texture, turgor normal, no suspicious rashes or lesions. Eyes: Anicteric sclera. Neck: Supple, no adenopathy; thyroid symmetric, normal size, no bruits. Lungs: Lungs clear to auscultation. No wheezing, rhonchi, rales. Heart: RRR without murmur, gallop, or rubs. No ectopy. Abdomen: Abdomen soft, non-tender. Bowel sounds normal. No masses, organomegaly. Extremities: No deformities or edema. Finger splint right middle finger. Bandaid right great toe. Peripheral Pulses: Normal. Neurologic: Gait normal. Reflexes normal and symmetric. Sensation grossly intact. Impression: GERD Plan: Continue omeprazole. Elevate the head of the bed 6 inches. Would consider EGD in 2019. Follow up with any concerns in the mean time. Yearly office check to refill. Patient agrees with this plan. I have personally interviewed and examined this patient. I have reviewed the information that the MA entered for this encounter. Greater than 30 minutes total time used this visit to review old chart, review new information, update current history and evaluate patient. A majority of the time was spent in discussion and counseling to formulate the plan. Rosamaria Vasquez RN APRN.KRISTIAN CNOV Observed: 01/21/2018 Status: COMPLETED Source: [place] 9:40 AM [facility] REPOSITORY Office Visit ([facility]) MICHELLE GARCIA ([id number]) 1975 F Date Time Provider Department 01/21/18 9:40 AM ROSAMARIA VASQUEZ (LOCKSTITCH POCKET SETTER) [facility] During your visit today, we recorded the following information about you: Pulse Blood pressure Weight Height 71/minute 128/87 75.8 kg 1.6 m Rosamaria Vasquez RN APRN.TEST GRADER 01/21/2018 11:06 AM Signed Michelle Garcia a 42 year old female who is returning today so that her omeprazole will be refilled. She had been seeing Dr. Starks. She plans to establish with Charbel Blackburn. She hasn't been seen in this office since 03/22/17 (regarding bowel issues). It was 12/21/16 that I last saw her regarding dyspepsia or GERD. That note has been reviewed. The patient was seen by Dr. Kike Arias for upper endoscopy 07/13/15. The procedure report has been reviewed and findings as follows: Findings: ? ? ?LA Grade A (one or more mucosal breaks less than 5 mm, not extending ? ? ?between tops of 2 mucosal folds) esophagitis with no bleeding was found ? ? ?38 to 39 cm from the incisors. Biopsies were taken with a cold forceps ? ? ?for histology. ? ? ?Diffuse mildly erythematous mucosa without bleeding was found in the ? ? ?gastric antrum. Biopsies were taken with a cold forceps for histology. ? ? ?The examined duodenum was normal. FINAL DIAGNOSIS 1. Stomach, antrum, biopsy (A) - Gastric mucosa with no significant pathologic change. -No morphologic evidence of Helicobacter. 2. Distal esophagus, biopsy (B) - Squamous esophageal mucosa with only mild chronic esophagitis. -Gastric-type mucosa, negative for goblet cells and dysplasia. Dr. Madden performed lower endoscopy on 03/30/2017. The patient was found to have the following: Findings: ? ? ?The perianal and digital rectal examinations were normal. ? ? ?The terminal ileum appeared normal. ? ? ?The colon (entire examined portion) appeared normal. Biopsies for ? ? ?histology were taken with a cold forceps from the cecum and sigmoid ? ? ?colon for evaluation of microscopic colitis. ? ? ?The retroflexed view of the distal rectum and anal verge was normal and ? ? ?showed no anal or rectal abnormalities. ? ? Pathology demonstrated: FINAL DIAGNOSIS 1. Terminal ileum, biopsy (A) - Small intestinal mucosa with no significant pathologic change. 2. Colon, random, biopsy (B) - Colonic mucosa with no significant pathologic change. Presenting complaint: The patient presents today to refill omeprazole. She tells me that she has to take it daily or she will experience regurgitation, or at least a feeling of having vomited. The patient reports occasional water brash in spite of taking it daily. The patient has been on pantoprazole, but doesn't want to try that again. Would like to remain on the omepraozle. The patient sleeps on a regular mattress with the head of the bed flat. We discussed the need to elevate the head of the bed. The patient denies change in bowel habits, rectal bleeding or abdominal pain. Having a bowel movement routinely. REVIEW OF SYSTEMS: GENERAL: No unplanned weight loss. GI: The patient states that her appetite has been good. She does get hungry. There has been no nausea, no vomiting. She denies dysphagia and denies odynophagia. There occasionally been indigestion with heartburn. There has occasionally been regurgitation. Bowel habits have been regular. There has not been diarrhea. There has not been constipation. The patient denies rectal bleeding. There has not been melena. No abdominal pain. All other reviewed and negative other than HPI. PAST MEDICAL HISTORY Diagnosis Date - Allergic rhinitis, cause unspecified Allergic rhinitis - Asthma borderline - Chest pain, unspecified - Dysplasia of cervix, unspecified 2001 severe dysplasia - Esophagitis, unspecified - GERD (gastroesophageal reflux disease) - Snoring - Tobacco use disorder PAST SURGICAL HISTORY Procedure Laterality Date - CERVIX UTERI CONIZA LP ELCTRO EXCI 2001 LEEP-Cervix - COLONOSCOPY W/BX 03/30/2017 Normal visualized: Normal terminal ileum-biopsies returned as normal terminal ileum and no signs of microscopic colitis - EGD W/O [facility] SPECIMEN W/BX 02/01/8838015 - FNA WITH IMAGING Right 08/17/15 U/S FNA right thyroid - INSERTION OF IUD 09/03/2012 - PAST SURGICAL HISTORY OF 1996 foot surgery on right - PAST SURGICAL HISTORY OF 12/13/12 Right foot bone shaved 4th toe, Dr. Carpio - RHINOPLASTY 07/11/2016 - SEPTOPLASTY [address] Jacquelyn Pulido. FAMILY HISTORY Problem Relation Age of Onset - Breast Cancer Maternal Grandmother - Cancer Maternal Grandfather leukemia - Diabetes Paternal Grandfather - heart attack [OTHER] Mother - Cancer Father STAGE 4 LUNG - psoriasis [OTHER] Father - Cancer Paternal Uncle ? primary. - Cancer Other Colon. Both maternal great grandparents. - Other [OTHER] Other 5 of mgf's sibling with cancer various types Current Outpatient Prescriptions: Omeprazole 40 mg capsule Take 1 capsule by mouth once daily. Disp: 30 capsule Rfl: 3 levonorgestrel (MIRENA) 20 mcg/24 hr (5 years) IUD Inserted in office Disp: 1 Each Rfl: 0 ketotifen fumarate (ZADITOR) 0.025 % (0.035 %) ophthalmic solution 1 Drop twice daily. Disp: Rfl: Biotin 10,000 mcg cap Take by mouth once daily. Disp: Rfl: fluticasone (FLONASE) 50 mcg/actuation nasal spray Use 1 [facility] in each nostril once daily. Disp: Rfl: No current facility-administered medications for this visit. SOCIAL HISTORY: Patient is single. She smokes 1/2 ppd andreports her alcohol use as socially. PHYSICAL EXAMINATION: Blood pressure 128/87, pulse 71, height 160 cm (5' 3), weight 75.8 kg (167 lb). General Appearance: Well appearing, alert, in no acute distress, well-hydrated, well nourished. Skin: Skin color, texture, turgor normal, no suspicious rashes or lesions. Eyes: Anicteric sclera. Neck: Supple, no adenopathy; thyroid symmetric, normal size, no bruits. Lungs: Lungs clear to auscultation. No wheezing, rhonchi, rales. Heart: RRR without murmur, gallop, or rubs. No ectopy. Abdomen: Abdomen soft, non-tender. Bowel sounds normal. No masses, organomegaly. Extremities: No deformities or edema. Finger splint right middle finger. Bandaid right great toe. Peripheral Pulses: Normal. Neurologic: Gait normal. Reflexes normal and symmetric. Sensation grossly intact. Impression: GERD Plan: Continue omeprazole. Elevate the head of the bed 6 inches. Would consider EGD in 2020. Follow up with any concerns in the mean time. Yearly office check to refill. Patient agrees with this plan. I have personally interviewed and examined this patient. I have reviewed the information that the JOEL entered for this encounter. Greater than 30 minutes total time used this visit to review old chart, review new information, update current history and evaluate patient. A majority of the time was spent in discussion and counseling to formulate the plan. Rosamaria Vasquez RN SERVICE COUNTER CASHIER.KRISTIAN Vasquez RN SERVICE COUNTER CASHIER.KRISTIAN 01/21/2018 10:13 AM Signed Continue omeprazole daily. Yearly office visit unless Charbel Blackburn will take over refills. Consider recheck EGD in 2020. Referring Provider: SELF [[id number]] Allergies As of Date: 01/21/2018 Noted Allergy Reaction HAYFEVER (HOMEOPATHIC PRODUCTS) 05/24/2005 Date Reviewed: 01/21/2018 Reviewed by: Kimberly Montgomery MA - Fully Assessed Reason for Visit: Medication Update [1866] Primary Visit Diagnosis:Gastroesophageal reflux disease with esophagitis [K21.0] Order(s):Omeprazole 40 mg capsuleTake 1 capsule by mouth once daily.Disp: 30 capsuleRfl: 11 Prescriptions as of 01/21/2018 Sig: OMEPRAZOLE 40 MG CAPSULE,PETRA* Take 1 capsule by mouth once * LEVONORGESTREL 20 MCG/24 HR (* Inserted in office KETOTIFEN 0.025 % (0.035 %) E* 1 Drop twice daily. BIOTIN 10,000 MCG CAPSULE Take by mouth once daily. FLUTICASONE 50 MCG/ACTUATION * Use 1 [facility] in each nostril o* Problem List As Of Date 01/21/2018 Noted Resolved Chest pain, unspecified [R07.9] INVALID FOR*05/17/2017 SMOKING (TOBACCO DEPENDENCE) [F17.200] INVALID FOR* ANXIETY STATE NOS [F41.1] INVALID FOR* PAIN ABDOMEN( Other Specific Site or) [R10.9] INVALID FOR* IRRITABLE COLON [K58.9] INVALID FOR* Esophagitis, unspecified [K20.9] INVALID FOR* Irregular menses [N92.6] INVALID FOR* Dysmenorrhea [N94.6] INVALID FOR* Right thyroid nodule [E04.1] INVALID FOR* Altered bowel habits [R19.4] INVALID FOR* More... Atypical chest pain [R07.89] INVALID FOR* Other instructions from your clinician: Continue omeprazole daily. Yearly office visit unless Charbel Blackburn will take over refills. Consider recheck EGD in 2019. Prescriptions ordered this encounter Disp Refills Start End OMEPRAZOLE 40 MG CAPSULE,DELAYED REL* 30 c* 11 01/21/2018 Route: ORAL Sig: Take 1 capsule by mouth once daily. Medications Discontinued During This Encounter Omeprazole 40 mg capsule 30 c* 3 12/17/2017 01/21/2018 Route: ORAL Sig: Take 1 capsule by mouth once daily. Disc: Reason for discontinue is not on file. Encounter Status:Closed by ROSAMARIA VASQUEZ CNP on 01/21/18 PLASTIC SURGERY Observed: 01/01/2018 Status: F Source: [place] VISIT REPORT 1:[address] [facility] [address] [place] [address] OFFICE VISIT Date of Service: 12/12/17 MR#: [id number] Acct: [id number] Name: MICHELLE GARCIA Rep #: [id number] : 1975 Provider: Jose Gutiérrez MD Age/Sex: 42/F Location: [facility] Status: Signed Intake Vital Signs12/12/17 Height 5 ft 3 in 12/12/17 Weight: 171 lb Intake Visit Reasons: evaluation complex nail bed injury right long finger tip after surgical repair 11/13/17 Commissioned Police Officer Required: No Accompanied by: Mother Is patient in pain?: Yes (RIGHT HAND INDEX FINGER THROBBING PAIN) Pain scale (1-10): 5 Allergies No Known Allergies Allergy (Verified 12/26/17 09:37) Medications Fluticasone 0.05% [Flonase Nasal [facility]] 2 spray NASAL DAILY 11/08/17 [History Confirmed 12/12/17] Omeprazole [Prilosec] 40 mg PO DAILY 11/08/17 [History Confirmed 12/12/17] biotin 10,000 mcg capsule 10,000 mcg PO DAILY ea 11/09/17 [History Confirmed 12/12/17] ketotifen 0.025 % (0.035 %) eye drops 2 drp EACH EYE DAILY ml 11/09/17 [History Confirmed 12/12/17] Ibuprofen 600 mg PO Q6H PRN 11/12/17 [History Confirmed 12/12/17] Doxycycline [Vibramycin] 100 mg PO BID #28 cap 11/13/17 [Rx Confirmed 12/12/17] promethazine 25 mg tablet 25 mg PO 4X/DAY PRN #30 tab 12/17/17 [Rx Confirmed 12/17/17] doxycycline hyclate 100 mg capsule See Label Instructions PO BID #28 cap 12/26/17 [Rx Confirmed 12/26/17] Is last menstrual period known: Yes Post menopausal: No Patient : No PFSH Medical History GERD (gastroesophageal reflux disease) (Acute) Seasonal allergies (Acute) Surgical History History of foot surgery (Acute) History of nasal surgery (Acute 06/2016) Family History Grandmother Breast cancer Father Lung cancer Grandfather Cancer Diabetes Grandfather Colon cancer GREAT GRANDFATHER Grandmother Colon cancer GREAT GRANDMOTHER Social History Smoking Status: Current every day smoker alcohol intake: current alcohol intake frequency: other Alcohol type: beer details: SOCIAL DRINKING substance use type: does not use HPI evaluation complex nail bed injury right long finger tip after surgical repair 11/13/17: Details: HISTORY OF PRESENT ILLNESS Comes in today with some pain in the right long finger and her left big toe only when it is bumped. She has enough pain medication and uses mostly Ibuprofen as needed. This was the result of her recent surgery on 11/13/17 where she underwent complex repair nail bed defect with exposed bone (40%) ulnar aspect right long finger with nail bed graft from left big toe. She denies any fever. She is able to ambulate. She wears her splint when active because the pain is worse when she bumps her finger without the splint. PAST MEDICAL HISTORY GERD. Complex nail bed injury right long finger tip with exposed bone. PAST SURGICAL HISTORY Foot surgery. Nasal surgery. Complex repair nail bed defect with exposed bone (40%) ulnar aspect right long finger with nail bed graft from left big toe - 11/13/17 MEDICATIONS Biotin. Doxycycline. Flonase. Ibuprofen. Prilosec. Ketotifen eye drops. Percocet. Phenergan. ALLERGIES None. SOCIAL HISTORY Patient is a smoker. Patient does not drink alcohol. FAMILY HISTORY Breast cancer - Grandmother. Colon cancer - Grandfather and Grandmother. Diabetes - Grandfather. Lung cancer - Father. REVIEW OF SYSTEMS General - Denies fever, fatigue, and weight loss. ENT - Denies nasal congestion and sore throat. Eyes - Denies cataracts and glaucoma. Endocrine - Denies excessive thirst and urination. Skin - Has nail bed injury right long finger tip. Musculoskeletal - Denies joint pain, joint stiffness, weakness of muscles and joints, back pain, and arthritis. Neuro - Denies headaches. Cardiovascular - Has chest pain. Denies shortness of breath with exertion. Psych - Denies anxiety and depression. Respiratory - Denies cough and shortness of breath. Patient is a smoker. Gastrointestinal - Denies nausea, vomiting, diarrhea, and constipation. Hematologic - Denies bleeding and abnormal bruising. Genitourinary - Denies hematuria and urinary frequency. PHYSICAL EXAMINATION General - Alert and oriented. HEENT - PERRL. EOMI. Throat is clear. Neck - Supple and nontender. No cervical adenopathy. Lungs - Clear to auscultation. Heart - Regular rate and rhythm. Abdomen - Soft and nondistended. Extremities - FROM. No axillary adenopathy. Radial pulses are palpable. Fingers are warm with good capillary refill. Nails look good. No bleeding noted underneath the nails. The right long finger tip is mildly swollen. Nail plate is in place with sutures. Her right long finger tip is a little stiff at the DIP joint. Needs OT to help with range of motion exercises. The left big toe is mildly swollen. Nail plate is in place. Neuro - CN II - XII grossly intact. ASSESSMENT 1. Complex nail bed injury defect with exposed bone (40%) ulnar aspect right long finger tip. 2. Smoker. 3. s/p complex repair nail bed defect with exposed bone (40%) ulnar aspect right long finger with nail bed graft from left big toe. PLAN Sutures were removed from the right long finger tip today without difficulty. Continue Doxycycline. She is at risk for osteomyelitis in the future. Keep right hand and left leg elevated when sitting. Continue antibiotic ointment to the suture lines daily for another week. Want to leave the nail plate alone because I don't want the nail plate to come off too soon which may affect the healing of the nail bed graft. When it does come off, apply antibiotic ointment to the healing nail bed daily until seen back in the office. Patient may wear finger splint for protection against bumping the tip of the finger. Encouraged the patient to stop smoking as it may have deleterious effects on wound healing. The right long finger tip is a little stiff at the DIP joint from the splint. Needs OT. Will set that up. OT will evaluate for range of motion exercises, strengthening, and edema management. Followup 2 weeks. She states she will have trouble at work because of the splint. She doesn't think there is light duty. Will have her return to work 01/06/18 (tentative). She will continue her splint until 01/22/18. She states she will need to wear the splint at work initially because of the risk of re-injuring the finger. She will check to see if it is ok to return to work with the splint. Assessment AND Plan Problems 1. Open wound of right middle finger with damage to nail S61.302A 2. Injury of nail bed of finger of right hand S69.91XA 3. Smoker F17.200 Orders Referrals: Coding Level of Care Code Off vis,est,level 3 Diagnoses Open wound of right middle finger with damage to nail S61.302A Injury of nail bed of finger of right hand S69.91XA Smoker F17.200 01/01/18 1306 <Electronically signed by Jose Gutiérrez MD> Date Jose Gutiérrez MD Cosigner Signature: Date (if applicable) CC: OT GENERAL EVALUATION Observed: 12/26/2017 Status: F Source: [place] 11:[address] [facility] Occupational [facility] [address] [place], [place] [address] Fax REHABILITATION SERVICES INITIAL EVALUATION MR#: [id number] Acct: [id number] Name: MICHELLE GARCIA Rep #: [id number] : 1975 42 From: Jennie Suarez Referring Dr.: Jose Gutiérrez MD Status: REG R Insurance: [employer] Date: SELF PAY INSURANCE Patient's Visit Information MICHELLE GARCIA is a 42 year old F, referred to Occupational Therapy by Jose Gutiérrez DR.JSLABY, with a diagnosis of unspecified injury R hand/finger, open wound R middle finger w/ damage nail. Date of Evaluation: 12/25/17 Occupational Therapist: Jennie Suarez - Subjective Subjective: Pt seen for initial occupational therapy evaluation for stiffness R middle finger after accidently slamming door on R hand with opened fracture of R middle finger and nail bed 11/08/17. Pt had sx 11/13/17 with nailgraph/tissue graph. Pt now wearing immobilizer for R middle finger until 01/22/18. 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 She is right hand dominent. Pt staets she is able to complete all BADL's independently with being careful of her R middle finger while completing tasks. - Pain Right Hand 5 Pain Intensity Range: 5 - Objective Objective/Observation: Pt demo decreased functional use of R middle finger with decreased ROM of R middle finger DIP flexion, decreased R hand platform beater strength and pinch strength with decreased sensation of tip of R middle finger. Pt fearful of using R middle finger for functional tasks 2' pain and fearful of nail falling off. - ROM ROM Comments: R middle finger MP 0/70, PIP 0/75, DIP AROM -5/5, PROM -5/10 - Strength Cell Tester: R 30#, L 60# Tripod Pinch: R 8#, L 18# Strength Comments: Pt demo decreased strength R hand and R middle finger - Edema Other: slight edema noted R middle finger - Sensation Sensation Comments: Tip of R middle finger numbness. Monofilament 2.83 - DASH-Disabilities of Arm, Shoulder AND Hand DASH Sum: 79 - Goals Goal:: Pt will progress w/ R hand platform beater strength by 30# to assist with functional living tasks independently. Goal:: Pt will progress with R middle finger DIP flexion and extension by 5 degrees to increase ability to complete BADL's with increased independence. Goal:: Pt will demo no pain greater than 1/10 in R middle finger by time for D/C from OT. Goal:: Pt will be able to use R middle finger to assist w/ grooming/hygiene tasks independently. Goal:: Pt will be educated on HEP for R hand with good understanding and demo 100%x. - Rehabilitation General Assessment: Pt demo decreased functional use of R middle finger with decreased strength of R hand and decreased ROM DIP R middle finger flexion/extension indicating a need for occupational therapy services to increase R middle finger ROM and R hand strength with education on R hand HEP and increasing her functional use of R middle finger for BADLs with good understanding and demo. Rehabilitation Potential: Good - Anticipated Interventions Anticipated Interventions: A/AAROM/PROM, Strengthening, Edema Control, Scar Care, Massage, Wound Care, Modalities, Joint Protection/Energy Conservation, Fine Motor Coord/Wil, ADL Training, Home Program - Visit Plan Frequency: 1-2x /Week Duration: 6 Weeks General Plan: increase rom of R middle finger flexion/extension, increase R hand platform beater strength, decrease pain and edema, educate on HEP. TEXT: Thank you for the opportunity to evaluate your patient. For Medicare and Medicare HMO plans, please review the plan of care and approve it. It will need to be FAXED BACK to us at [phone] for Medicare purposes. Please let me know if there are questions or concerns regarding this plan of care. Physician Signature: Date: <Electronically signed by Jennie Sanchez Viazina > 12/26/17 1111 CC: No Primary Care Physician; Jose Gutiérrez MD [facility] Signed For Medicare only, by signing this I certify the plan of care. Physicians Signature Date PLASTIC SURGERY Observed: 12/18/2017 Status: F Source: [place] VISIT REPORT 4:[address] [facility] [address] [place] [address] OFFICE VISIT Date of Service: 11/28/17 MR#: [id number] Acct: [id number] Name: MICHELLE GARCIA Rep #: [id number] : 1975 Provider: Jose Gutiérrez MD Age/Sex: 42/F Location[place] [facility] Status: Signed Intake Vital Signs11/28/17 Height 5 ft 3 in 11/28/17 Weight: 172 lb 2 oz Intake Visit Reasons: postop surgery 11/13/17 Commissioned Police Officer Required: No Accompanied by: Mother Is patient in pain?: Yes (FINGER PAIN IS THROBBING ) Pain scale (1-10): 5 Allergies No Known Allergies Allergy (Verified 12/12/17 11:20) Medications Fluticasone 0.05% [Flonase Nasal [facility]] 2 spray NASAL DAILY 11/08/17 [History Confirmed 12/12/17] Omeprazole [Prilosec] 40 mg PO DAILY 11/08/17 [History Confirmed 12/12/17] biotin 10,000 mcg capsule 10,000 mcg PO DAILY ea 11/09/17 [History Confirmed 12/12/17] ketotifen 0.025 % (0.035 %) eye drops 2 drp EACH EYE DAILY ml 11/09/17 [History Confirmed 12/12/17] Ibuprofen 600 mg PO Q6H PRN 11/12/17 [History Confirmed 12/12/17] Doxycycline [Vibramycin] 100 mg PO BID #28 cap 11/13/17 [Rx Confirmed 12/12/17] promethazine 25 mg tablet 25 mg PO 4X/DAY PRN #30 tab 12/17/17 [Rx Confirmed 12/17/17] Patient : No PFSH Medical History GERD (gastroesophageal reflux disease) (Acute) Seasonal allergies (Acute) Surgical History History of foot surgery (Acute) History of nasal surgery (Acute 06/2016) Family History Grandmother Breast cancer Father Lung cancer Grandfather Cancer Diabetes Grandfather Colon cancer GREAT GRANDFATHER Grandmother Colon cancer GREAT GRANDMOTHER Social History Smoking Status: Current every day smoker alcohol intake: current alcohol intake frequency: other Alcohol type: beer details: SOCIAL DRINKING substance use type: does not use HPI postop surgery 11/13/17: Details: HISTORY OF PRESENT ILLNESS Comes in today with some pain in the right long finger and her left big toe only when it is bumped. She has enough pain medication and uses mostly Ibuprofen as needed. This was the result of her recent surgery on 11/13/17 where she underwent complex repair nail bed defect with exposed bone (40%) ulnar aspect right long finger with nail bed graft from left big toe. She denies any fever. She is able to ambulate. PAST MEDICAL HISTORY GERD. Complex nail bed injury right long finger tip with exposed bone. PAST SURGICAL HISTORY Foot surgery. Nasal surgery. Complex repair nail bed defect with exposed bone (40%) ulnar aspect right long finger with nail bed graft from left big toe - 11/13/17 MEDICATIONS Biotin. Doxycycline. Flonase. Ibuprofen. Prilosec. Ketotifen eye drops. Percocet. Phenergan. ALLERGIES None. SOCIAL HISTORY Patient is a smoker. Patient does not drink alcohol. FAMILY HISTORY Breast cancer - Grandmother. Colon cancer - Grandfather and Grandmother. Diabetes - Grandfather. Lung cancer - Father. REVIEW OF SYSTEMS General - Denies fever, fatigue, and weight loss. ENT - Denies nasal congestion and sore throat. Eyes - Denies cataracts and glaucoma. Endocrine - Denies excessive thirst and urination. Skin - Has nail bed injury right long finger tip. Musculoskeletal - Denies joint pain, joint stiffness, weakness of muscles and joints, back pain, and arthritis. Neuro - Denies headaches. Cardiovascular - Has chest pain. Denies shortness of breath with exertion. Psych - Denies anxiety and depression. Respiratory - Denies cough and shortness of breath. Patient is a smoker. Gastrointestinal - Denies nausea, vomiting, diarrhea, and constipation. Hematologic - Denies bleeding and abnormal bruising. Genitourinary - Denies hematuria and urinary frequency. PHYSICAL EXAMINATION General - Alert and oriented. HEENT - PERRL. EOMI. Throat is clear. Neck - Supple and nontender. No cervical adenopathy. Lungs - Clear to auscultation. Heart - Regular rate and rhythm. Abdomen - Soft and nondistended. Extremities - FROM. No axillary adenopathy. Radial pulses are palpable. Fingers are warm with good capillary refill. Nails look good. No bleeding noted underneath the nails. The right long finger tip is mildly swollen. Nail plate is in place with sutures. The left big toe is mildly swollen. Nail plat is in place with sutures. Neuro - CN II - XII grossly intact. ASSESSMENT 1. Complex nail bed injury defect with exposed bone (40%) ulnar aspect right long finger tip. 2. Smoker. 3. s/p complex repair nail bed defect with exposed bone (40%) ulnar aspect right long finger with nail bed graft from left big toe. PLAN Sutures were removed from the left big toe today without difficulty. Continue Doxycycline. She is at risk for osteomyelitis in the future. Keep right hand and left leg elevated when sitting. Continue antibiotic ointment to the suture lines daily. Will remove the sutures from the right long finger nail in the next couple of weeks. Want to leave the nail plate alone because I don't want the nail plate to come off too soon which may affect the healing of the nail bed graft. Patient may wear finger splint for protection against bumping the tip of the finger. Followup 2 weeks to remove the nail sutures from the right long finger. Encouraged the patient to stop smoking as it may have deleterious effects on wound healing. She states she will have trouble at work because of the splint. She doesn't think there is light duty. Will have her return to work 12/23/17 (tentative) Assessment AND Plan Problems 1. Open wound of right middle finger with damage to nail S61.302A 2. Injury of nail bed of finger of right hand S69.91XA 3. Smoker F17.200 Coding Level of Care Code Off vis,est,level 3 Diagnoses Open wound of right middle finger with damage to nail S61.302A Injury of nail bed of finger of right hand S69.91XA Smoker F17.200 12/18/17 1643 <Electronically signed by Jose Gutiérrez MD> Date Jose Gutiérrez MD Cosigner Signature: Date (if applicable) CC: Papito Starks MD PLASTIC SURGERY Observed: 12/17/2017 Status: F Source: [place] VISIT REPORT 8:[address] [facility] [address] [place] [address] OFFICE VISIT Date of Service: 11/21/17 MR#: [id number] Acct: [id number] Name: MICHELLE GARCIA Rep #: [id number] : 1975 Provider: Jose Gutiérrez MD Age/Sex: 42/F Location: [facility] Status: Signed Intake Vital Signs11/21/17 Height 5 ft 3 in 11/21/17 Weight: 170 lb 8 oz Intake Visit Reasons: postop surgery 11/13/17 Commissioned Police Officer Required: No Accompanied by: Mother Is patient in pain?: Yes (THROBBING PAIN IN THE FINGER ) Pain scale (1-10): 5 Allergies No Known Allergies Allergy (Verified 12/12/17 11:20) Medications Fluticasone 0.05% [Flonase Nasal [facility]] 2 spray NASAL DAILY 11/08/17 [History Confirmed 12/12/17] Omeprazole [Prilosec] 40 mg PO DAILY 11/08/17 [History Confirmed 12/12/17] biotin 10,000 mcg capsule 10,000 mcg PO DAILY ea 11/09/17 [History Confirmed 12/12/17] ketotifen 0.025 % (0.035 %) eye drops 2 drp EACH EYE DAILY ml 11/09/17 [History Confirmed 12/12/17] Ibuprofen 600 mg PO Q6H PRN 11/12/17 [History Confirmed 12/12/17] Doxycycline [Vibramycin] 100 mg PO BID #28 cap 11/13/17 [Rx Confirmed 12/12/17] oxycodone-acetaminophen 5 mg-325 mg tablet See Label Instructions PO 4X/DAY PRN #20 tab 12/17/17 [Rx Confirmed 12/17/17] promethazine 25 mg tablet 25 mg PO 4X/DAY PRN #30 tab 12/17/17 [Rx Confirmed 12/17/17] Is last menstrual period known: Yes Post menopausal: No Patient : No PFSH Medical History GERD (gastroesophageal reflux disease) (Acute) Seasonal allergies (Acute) Surgical History History of foot surgery (Acute) History of nasal surgery (Acute 06/2016) Family History Grandmother Breast cancer Father Lung cancer Grandfather Cancer Diabetes Grandfather Colon cancer GREAT GRANDFATHER Grandmother Colon cancer GREAT GRANDMOTHER Social History Smoking Status: Current every day smoker alcohol intake: current alcohol intake frequency: other Alcohol type: beer details: SOCIAL DRINKING substance use type: does not use HPI postop surgery 11/13/17: Details: Postop visit from her recent surgery on 11/13/17 where she underwent complex repair nail bed defect with exposed bone (40%) ulnar aspect right long finger with nail bed graft from left big toe. Comes in today with some pain in the finger and her toe. She states when she takes her pain medication, she gets nauseated. On exam, her nails look good. No bleeding noted underneath the nail. Minimal swelling seen. Continue Doxycycline. She is at risk for osteomyelitis in the future. Renewed her Percocet for pain, one tab (20 tabs). Wrote a script for Phenergan for nausea (30 tabs). Keep right hand and left leg elevated when sitting. Continue antibiotic ointment to the suture lines daily. Patient may wear finger splint for protection against bumping the tip of the finger. Followup one week to remove the nail sutures from the big toe. Will leave the finger sutures in for an additional 1-2 weeks. Encouraged the patient to stop smoking as it may have deleterious effects on wound healing. PAST MEDICAL HISTORY GERD. Complex nail bed injury right long finger tip with exposed bone. PAST SURGICAL HISTORY Foot surgery. Nasal surgery. Complex repair nail bed defect with exposed bone (40%) ulnar aspect right long finger with nail bed graft from left big toe - 11/13/17 SOCIAL HISTORY Patient is a smoker. Patient does not drink alcohol. FAMILY HISTORY Breast cancer - Grandmother. Colon cancer - Grandfather and Grandmother. Diabetes - Grandfather. Lung cancer - Father. Assessment AND Plan Problems 1. Open wound of right middle finger with damage to nail S61.302A 2. Injury of nail bed of finger of right hand S69.91XA 3. Smoker F17.200 Medications New: Coding Level of Care Code Global Post Op Diagnoses Open wound of right middle finger with damage to nail S61.302A Injury of nail bed of finger of right hand S69.91XA Smoker F17.200 12/17/172034 <Electronically signed by Jose Gutiérrez MD> Date Jose Gutiérrez MD Cosigner Signature: Date (if applicable) CC: PLASTIC SURGERY Observed: 12/17/2017 Status: F Source: [place] VISIT REPORT 8:[address] [facility] [address] [place] [address] OFFICE VISIT Date of Service: 11/09/17 MR#: [id number] Acct: [id number] Name: MICHELLE GARCIA Rep #: [id number] : 1975 Provider: Jose Gutiérrez MD Age/Sex: 42/F Location: [facility] Status: Signed Intake Vital Signs11/09/17 Height 5 ft 3 in 11/09/17 Weight: 170 lb 4 oz Intake Visit Reasons: evaluation complex nail bed injury right long finger tip Commissioned Police Officer Required: No Accompanied by: Mother Is patient in pain?: Yes (RIGHT HAND LONG FINGER - THROBBING PAIN) Pain scale (1-10): 6 Allergies No Known Allergies Allergy (Verified 12/12/17 11:20) Medications Fluticasone 0.05% [Flonase Nasal [facility]] 2 spray NASAL DAILY 11/08/17 [History Confirmed 12/12/17] Omeprazole [Prilosec] 40 mg PO DAILY 11/08/17 [History Confirmed 12/12/17] biotin 10,000 mcg capsule 10,000 mcg PO DAILY ea 11/09/17 [History Confirmed 12/12/17] ketotifen 0.025 % (0.035 %) eye drops 2 drp EACH EYE DAILY ml 11/09/17 [History Confirmed 12/12/17] Ibuprofen 600 mg PO Q6H PRN 11/12/17 [History Confirmed 12/12/17] Doxycycline [Vibramycin] 100 mg PO BID #28 cap 11/13/17 [Rx Confirmed 12/12/17] PFSH Medical History GERD (gastroesophageal reflux disease) (Acute) Seasonal allergies (Acute) Surgical History History of foot surgery (Acute) History of nasal surgery (Acute 06/2016) Family History Grandmother Breast cancer Father Lung cancer Grandfather Cancer Diabetes Grandfather Colon cancer GREAT GRANDFATHER Grandmother Colon cancer GREAT GRANDMOTHER Social History Smoking Status: Current every day smoker alcohol intake: current alcohol intake frequency: other Alcohol type: beer details: SOCIAL DRINKING substance use type: does not use HPI evaluation complex nail bed injury right long finger tip: Details: HISTORY OF PRESENT ILLNESS 42 year old woman presents with blunt trauma to her right long fingertip when she caught her finger in a car door when it was closed. She denies any numbness or weakness of the right long finger. There was bleeding at the scene that was controlled with pressure. She went to the ED where an xray showed no acute fracture. A nail bed injury was noted and was partially repaired in the ED. However the distal phalanx could not be completely closed with the available nail bed tissue as there was some avulsion of tissue. The nail plate was tacked back on to protect the nail bed. Operative intervention will be necessary to have her finger nail explored and the nail bed defect repaired. This may require lateral relaxing incisions. A split thickness nail bed graft may be necessary as well. If I can harvest it from the same nail that would be ideal. If the surrounding nail bed tissue is not of good quality for a nail bed graft then I would need to obtain the graft from an adjacent finger or a toe. Patient denies any fever. Patient is able to move her fingers without difficulty. The ED placed her on Keflex. She presents at this time for further evaluation and treatment. PAST MEDICAL HISTORY GERD. PAST SURGICAL HISTORY Foot surgery. Nasal surgery. MEDICATIONS Biotin. Keflex. Flonase. Ibuprofen. Prilosec. Ketotifen eye drops. ALLERGIES None. SOCIAL HISTORY Patient is a smoker. Patient does not drink alcohol. FAMILY HISTORY Breast cancer - Grandmother. Colon cancer - Grandfather and Grandmother. Diabetes - Grandfather. Lung cancer - Father. REVIEW OF SYSTEMS General - Denies fever, fatigue, and weight loss. ENT - Denies nasal congestion and sore throat. Eyes - Denies cataracts and glaucoma. Endocrine - Denies excessive thirst and urination. Skin - Has nail bed injury right long finger tip. Musculoskeletal - Denies joint pain, joint stiffness, weakness of muscles and joints, back pain, and arthritis. Neuro - Denies headaches. Cardiovascular - Has chest pain. Denies shortness of breath with exertion. Psych - Denies anxiety and depression. Respiratory - Denies cough and shortness of breath. Patient is a smoker. Gastrointestinal - Denies nausea, vomiting, diarrhea, and constipation. Hematologic - Denies bleeding and abnormal bruising. Genitourinary - Denies hematuria and urinary frequency. PHYSICAL EXAMINATION General - Alert and oriented. HEENT - PERRL. EOMI. Throat is clear. Neck - Supple and nontender. No cervical adenopathy. Lungs - Clear to auscultation. Heart - Regular rate and rhythm. Abdomen - Soft and nondistended. Extremities - FROM. No axillary adenopathy. Radial pulses are palpable. Fingers are warm with good capillary refill. The right long finger tip is mildly swollen. Nail plate is in place with sutures. Neuro - CN II - XII grossly intact. ASSESSMENT 1. Complex nail bed injury right long finger tip with exposed bone. 2. Smoker. PLAN Xray reviewed. There is no acute fracture seen. Recommend exploration of the patient's nail bed right long finger. According to ED reports, there is some tissue missing and exposed distal phalanx. The goal is to provide soft tissue coverage, hopefully with nail bed tissue. Depending on the size of the tissue defect, relaxing lateral incisions may be necessary and or a possible nail bed graft (split thickness). If there is an area on the same nail for the graft then that will be my first choice. If not then an adjacent digit or a toe would be used as the donor site. If there is near total loss of the nail bed then instead of causing another nail bed defect in another digit, then I would consider excising the nail complex and provide soft tissue coverage to maintain length with a two stage thenar flap or a cross finger flap and skin grafting. Surgery will be done under general anesthesia on an outpatient basis. Continue Keflex until the surgery. Patient was informed of the risks and complications of the procedure including alternatives to surgery. These were discussed with her personally. She voices understanding and wishes to proceed. Some of the risks and complications were included in a form from the [employer]. Some of the risks that were discussed included but were not inclusive of failure to diagnose including symptom relief, pain, infection, numbness, stiffness, loss of digit, RSD, need for further surgery, contracture and wound healing problems. She voices understanding and wishes to proceed. Encouraged the patient to stop smoking as it may have deleterious effects on wound healing. Assessment AND Plan Problems 1. Open wound of right middle finger with damage to nail S61.302A 2. Injury of nail bed of finger of right hand S69.91XA 3. Smoker F17.200 Coding Level of Care Code Off vis,new,level 4 Diagnoses Open wound of right middle finger with damage to nail S61.302A Injury of nail bed of finger of right hand S69.91XA Smoker F17.200 12/17/172020 <Electronically signed by Jose Gutiérrez MD> Date Jose Gutiérrez MD Cosigner Signature: Date (if applicable) CC: MARY ANN Observed: 12/17/2017 Status: COMPLETED Source: [place] 12:00 AM [facility] REPOSITORY Telephone ([facility]) MICHELLE GARCIA ([id number]) 1975 F Date Time Provider Department 12/17/17 ROSAMARIA VASQUEZ (CHOLO) [facility] During your visit today, we recorded the following information about you: Kimberly Montgomery MA 12/17/2017 10:48 AM Signed Patient called in requesting refill for Omeprazole Last seen 03/22/17. Kimberly Vasquez RN APRN.MAURICIO TOWNSEND 12/17/2017 11:23 AM Signed Refilled as requested. Rosamaria Vasquez RN SERVICE COUNTER CASHIER.KRISTIAN Vasquez RN APRN.MAURICIO TOWNSEND 12/17/2017 11:23 AM Signed Addended by: ROSAMARIA VASQUEZ CNP on: 12/17/2017 11:23 AM Modules accepted: Orders Allergies As of Date: 12/17/2017 Noted Allergy Reaction HAYFEVER (HOMEOPATHIC PRODUCTS) 05/24/2005 Date Reviewed: 10/25/2017 Reviewed by: [place] (Kristian) Trisha - Fully Assessed Reason for Visit: Refill Request [94] Primary Visit Diagnosis:Esophagitis, unspecified [K20.9] Order(s):Omeprazole 40 mg capsuleTake 1 capsule by mouth once daily.Disp: 30 capsuleRfl: 3 Prescriptions as of 12/17/2017 Sig: OMEPRAZOLE 40 MG CAPSULE,PETRA* Take 1 capsule by mouth once * LEVONORGESTREL 20 MCG/24 HR (* Inserted in office KETOTIFEN 0.025 % (0.035 %) E* 1 Drop twice daily. BIOTIN 10,000 MCG CAPSULE Take by mouth once daily. FLUTICASONE 50 MCG/ACTUATION * Use 1 [place] in each nostril o* Problem List As Of Date 12/17/2017 Noted Resolved Chest pain, unspecified [R07.9] INVALID FOR*05/17/2017 SMOKING (TOBACCO DEPENDENCE) [F17.200] INVALID FOR* ANXIETY STATE NOS [F41.1] INVALID FOR* PAIN ABDOMEN( Other Specific Site or) [R10.9] INVALID FOR* IRRITABLE COLON [K58.9] INVALID FOR* Esophagitis, unspecified [K20.9] INVALID FOR* Irregular menses [N92.6] INVALID FOR* Dysmenorrhea [N94.6] INVALID FOR* Right thyroid nodule [E04.1] INVALID FOR* Altered bowel habits [R19.4] INVALID FOR* More... Atypical chest pain [R07.89] INVALID FOR* Prescriptions ordered this encounter Disp Refills Start End OMEPRAZOLE 40 MG CAPSULE,DELAYED REL* 30 c* 3 12/17/2017 Route: ORAL Sig: Take 1 capsule by mouth once daily. Medications Discontinued During This Encounter miSOPROStol (CYTOTEC) 200 mcg tablet 4 ta* 0 09/11/2017 12/17/2017 Sig: Insert 2 tablets vaginally night before procedure and 2 tablets morning of procedure. Disc: Course of therapy completed Omeprazole 40 mg capsule 30 c* 9 02/15/2017 12/17/2017 Route: ORAL Sig: Take 1 capsule by mouth once daily. Disc: Reason for discontinue is not on file. Encounter Status:Closed by KIMBERLY MONTGOMERY MA on 12/17/17 OPERATIVE REPORT Observed: 12/10/2017 Status: F Source: [place] 12:36 AM [facility] Medical Records Department [address] [place] [address] Operative Report 11/13/17 1839 MR#: [id number] Acct: [id number] Name: MICHELLE GARCIA Rep #: [id number] : 1975 42 From: Jose Gutiérrez MD PCP: Care Physician, No Primary Status: [facility] Location: [facility] ADDENDUM by Jose Gutiérrez MD on 12/10/17 at 0036 Code Visit Surgery Charges CPT - 79265 ICD-10 - S61.302A, S69.91xA, F17.200 15541 S61.302A, S69.91xA, F17.200 12/10/17 0036 <Electronically signed by Jose Gutiérrez MD> Date Jose Gutiérrez MD cc: No Primary Care Physician; Jose Gutiérrez MD; Papito Starks MD * Signed Report of Operation Date of Procedure: 11/13/17 Pre-Operative Diagnosis: 1. Complex nail bed injury right long finger tip with exposed bone. 2. Smoker. Post-Operative Diagnosis: 1. Complex nail bed injury defect with exposed bone (40%) ulnar aspect right long finger tip. 2. Smoker. Surgery/Procedure Performed:: Complex repair nail bed defect with exposed bone (40%) ulnar aspect right long finger with nail bed graft from left big toe. Description of Surgical Findings:: 42 year old woman presents with blunt trauma to her right long fingertip when she caught her finger in a car door when it was closed. She denies any numbness or weakness of the right long finger. There was bleeding at the scene that was controlled with pressure. She went to the ED where an xray showed no acute fracture. A nail bed injury was noted and was partially repaired in the ED. However the distal phalanx could not be completely closed with the available nail bed tissue as there was some avulsion of tissue. The nail plate was tacked back on to protect the nail bed. I saw her in the office and recommended to her to have her finger nail explored and the nail bed defect repaired. This may require lateral relaxing incisions. A split thickness nail bed graft may be necessary as well. If I can harvest it from the same nail that would be ideal. If the surrounding nail bed tissue is not of good quality for a nail bed graft then I would need to obtain the graft from an adjacent finger or a toe. Patient denies any fever. Patient is able to move her fingers without difficulty. The ED placed her on Keflex. Patient was informed of the risks and complications of the procedure including alternatives to surgery. These were discussed with her personally. She voices understanding and wishes to proceed. Some of the risks and complications were included in a form from the [place] [employer]. Some of the risks that were discussed included but were not inclusive of failure to diagnose including symptom relief, pain, infection, numbness, stiffness, loss of digit, RSD, need for further surgery, contracture and wound healing problems. She voices understanding and wishes to proceed. Encouraged the patient to stop smoking as it may have deleterious effects on wound healing. Total tourniquet time - right long finger - 42 minutes. left big toe - 31 minutes. Size of defect right long finger tip nail bed - 0.4 x 0.7 cm. certified retinal angiographer: None Type of Anesthesia:: General Specimen's removed: None. Drains: None. Estimated Blood Loss (mL): 5 ml. Description of Procedure: Patient was taken to OR in supine position and was placed under general anesthesia. Her right hand and left foot were prepped and draped in the usual fashion. SCD's were placed for DVT prophylaxis. Perioperative antibiotics were given intravenously. A tourniquet was then placed at the base of the right long finger. The suture was removed that was keeping the nail plate in place. The nail plate was removed. The nail bed was a little swollen. It was irrigated with saline. There was a nail bed defect on the ulnar aspect of the nail bed. Underlying distal phalanx bone is visible. The size of the defect with exposed bone was 0.4 x 0.7 cm. It represented about a 40% defect. The remaining nail bed of the right long finger was swollen and had the presence of sutures from recent repair in the ED. Therefore a nail bed graft would be needed. A tourniquet was then placed at the base of the left big toe. I gently elevated the nail plate off the nail bed using an elevator. I did not have to remove the nail place completely in order to get exposure to the nail bed. Using a 15 scalpel, I tangentially excised a partial thickness nail bed graft. No exposed bone was seen after the harvesting of the nail bed graft. The nail bed graft was then used to close the nail bed defect right long finger with exposed bone. The partial thickness nail bed graft was then secured to the surrounding nail bed with 6-0 Chromic simple interrupted sutures. After placement of the nail bed graft, I placed the nail plate back on as a splint and a biologic dressing. It was secured to the surrounding paronychial area and eponychial area, and hyponychial area with 5-0 Prolene interrupted sutures. The tourniquet was removed after 42 minutes. Hemostasis was obtained with gentle pressure. Antibiotic ointment was applied to the nail followed by xeroform gauze and 2x2 gauze followed by 2 inch clarisa wrap. I then secured the nail plate left big toe to the surrounding paronychial area and hyponychial area with 5-0 Prolene interrupted sutures. I then removed the tourniquet from the left big toe after 31 minutes. Hemostasis was obtained with gentle pressure. Antibiotic ointment was applied to the nail followed by xeroform gauze and 2x2 gauze followed by 2 inch clarisa wrap. Patient tolerated the procedure well and was sent to PACU in satisfactory condition. She will be sent home on antibiotics and pain medication. She will followup in the office in a week for a wound check. Range of motion exercises will be encouraged to minimize stiffness. Sutures will be removed in 2 weeks. Grafts/Implants Used: None. - Complications None. - Admit VTE Documentation VTE Present on Admission: No VTE Mechan Device Prophylaxis: SCD's VTE Pharm Prophylaxis ordered?: No 12/05/17 0851 <Electronically signed by Jose Gutiérrez MD> Date Jose Gutiérrez MD CC: No Primary Care Physician; Jose Gutiérrez MD; Papito Starks MD Signed HISTORY AND PHYSICAL Observed: 11/14/2017 Status: F Source: [place] EXAM 11:[address] [facility] REPOSITORY [facility] Medical Records Department [address] [place] [address] History and Physical 11/12/171957 MR#: [id number] Acct: [id number] Name: MICHELLE GARCIA Rep #: [id number] : 1975 42 From: Jose Gutiérrez MD PCP: Care Physician, No Primary Status: [facility] Location: [facility] History and Physical Date of Admission: 11/13/17 HISTORY OF PRESENT ILLNESS 42 year old woman presents with blunt trauma to her right long fingertip when she caught her finger in a car door when it was closed. She denies any numbness or weakness of the right long finger. There was bleeding at the scene that was controlled with pressure. She went to the ED where an xray showed no acute fracture. A nail bed injury was noted and was partially repaired in the ED. However the distal phalanx could not be completely closed with the available nail bed tissue as there was some avulsion of tissue. The nail plate was tacked back on to protect the nail bed. I saw her in the office and recommended to her to have her finger nail explored and the nail bed defect repaired. This may require lateral relaxing incisions. A split thickness nail bed graft may be necessary as well. If I can harvest it from the same nail that would be ideal. If the surrounding nail bed tissue is not of good quality for a nail bed graft then I would need to obtain the graft from an adjacent finger or a toe. Patient denies any fever. Patient is able to move her fingers without difficulty. The ED placed her on Keflex. PAST MEDICAL HISTORY GERD. PAST SURGICAL HISTORY Foot surgery. Nasal surgery. MEDICATIONS Biotin. Keflex. Flonase. Ibuprofen. Prilosec. Ketotifen eye drops. ALLERGIES None. SOCIAL HISTORY Patient is a smoker. Patient does not drink alcohol. FAMILY HISTORY Breast cancer - Grandmother. Colon cancer - Grandfather and Grandmother. Diabetes - Grandfather. Lung cancer - Father. REVIEW OF SYSTEMS General - Denies fever, fatigue, and weight loss. ENT - Denies nasal congestion and sore throat. Eyes - Denies cataracts and glaucoma. Endocrine - Denies excessive thirst and urination. Skin - Has nail bed injury right long finger tip. Musculoskeletal - Denies joint pain, joint stiffness, weakness of muscles and joints, back pain, and arthritis. Neuro - Denies headaches. Cardiovascular - Has chest pain. Denies shortness of breath with exertion. Psych - Denies anxiety and depression. Respiratory - Denies cough and shortness of breath. Patient is a smoker. Gastrointestinal - Denies nausea, vomiting, diarrhea, and constipation. Hematologic - Denies bleeding and abnormal bruising. Genitourinary - Denies hematuria and urinary frequency. PHYSICAL EXAMINATION General - Alert and oriented. HEENT - PERRL. EOMI. Throat is clear. Neck - Supple and nontender. No cervical adenopathy. Lungs - Clear to auscultation. Heart - Regular rate and rhythm. Abdomen - Soft and nondistended. Extremities - FROM. No axillary adenopathy. Radial pulses are palpable. Fingers are warm with good capillary refill. The right long finger tip is mildly swollen. Nail plate is in place with sutures. Neuro - CN II - XII grossly intact. ASSESSMENT 1. Complex nail bed injury right long finger tip with exposed bone. 2. Smoker. PLAN Xray reviewed. There is no acute fracture seen. Recommend exploration of the patient's nail bed right long finger. According to ED reports, there is some tissue missing and exposed distal phalanx. The goal is to provide soft tissue coverage, hopefully with nail bed tissue. Depending on the size of the tissue defect, relaxing lateral incisions may be necessary and or a possible nail bed graft (split thickness). If there is an area on the same nail for the graft then that will be my first choice. If not then an adjacent digit or a toe would be used as the donor site. If there is near total loss of the nail bed then instead of causing another nail bed defect in another digit, then I would consider excising the nail complex and provide soft tissue coverage to maintain length with a two stage thenar flap or a cross finger flap and skin grafting. Surgery will be done under general anesthesia on an outpatient basis. Continue Keflex until the surgery. Patient was informed of the risks and complications of the procedure including alternatives to surgery. These were discussed with her personally. She voices understanding and wishes to proceed. Some of the risks and complications were included in a form from the [place] [employer]. Some of the risks that were discussed included but were not inclusive of failure to diagnose including symptom relief, pain, infection, numbness, stiffness, loss of digit, RSD, need for further surgery, contracture and wound healing problems. She voices understanding and wishes to proceed. Encouraged the patient to stop smoking as it may have deleterious effects on wound healing. 11/14/17 1750 <Electronically signed by Jose Gutiérrez MD> Date Jose Gutiérrez MD Cosigner Signature: Date (if applicable) CC: No Primary Care Physician; Jose Gutiérrez MD; Papito Starks MD Signed DISCHARGE INSTRUCTION Observed: 11/13/2017 Status: F Source: [place] 8:[address] [facility] REPOSITORY [facility] Medical Records Department [address] [place] [address] Instructions for Home/Discharge Instructions 11/13/17 0855 MR#: [id number] Acct: [id number] Name: MICHELLE GARCIA Rep #: [id number] : 1975 42 From: Jose Gutiérrez MD PCP: Care Physician, No Primary Status: REG TNC You will use the following diet at home:: No restrictions Discharge Activity: May not drive while taking narcotic pain medications., - - keep right hand elevated. keep left leg elevated when sitting. minimize standing. May shower in (days): 1 - wear plastic bag over right hand and left foot when showering. May resume sexual activity in: No Restrictions Weight Bearing Status: Weight bearing as tolerated Lifting Restrictions: 20 lbs. Keep extremity elevated above heart level: Right Arm, Left Leg Call your doctor if your incision/area has: Continuous Slow Oozing, Sudden Increased Bleeding, Increased Pain/ Swelling, Increased Redness, Foul Smelling Discharge, Swelling at the incision site Call your doctor if you observe: Fever of 101 or Higher, Coldness, Increased Pain, Shortness of breath, Chest pain, Calf discomfort, Uncontrolled pain Suture Line Care: - - after dressing removed in the office, apply antibiotic ointment to nail sutures daily. Remove Dressing in (days):: 7 - will remove dressing in office. Cleanse incision/area with: - - wear plastic bag over right hand and left foot when showering. Allergies/Adverse Reactions: Allergies No Known Allergies Allergy (Verified 11/12/17 14:36) Medications to take at Discharge Cephalexin [Keflex] 500 mg PO Q8 #14 cap 11/08/17 Fluticasone 0.05% [Flonase Nasal [place]] 2 spray NASAL DAILY 11/08/17 Omeprazole [Prilosec] 40 mg PO DAILY 11/08/17 biotin 10,000 mcg capsule 10,000 mcg PO DAILY ea 11/09/17 ketotifen 0.025 % (0.035 %) eye drops 2 drp EACH EYE DAILY ml 11/09/17 Ibuprofen 600 mg PO Q6H PRN 11/12/17 Doxycycline [Vibramycin] 100 mg PO BID #28 cap 11/13/17 Oxycodone HCl/Acetaminophen [Percocet 5/325] 1 - 2 tab PO 4X/DAY PRN PRN 7 Days #30 tab 11/13/17 The following prescriptions were given: Oxycodone HCl/Acetaminophen [Percocet 5/325] 1 - 2 tab PO 4X/DAY PRN PRN 7 Days #30 tab PRN Reason: Pain Doxycycline [Vibramycin] 100 mg PO BID #28 cap Primary Care Physician: Care Physician,No Primary [Primary Care Provider] - Please Follow Up With: Jose Gutiérrez MD When: one week. call [phone] for appt. Proposed Discharge Date: 11/13/17 11/13/1758 <Electronically signed by Jose Gutiérrez MD> Date Jose Gutiérrez MD CC: No Primary Care Physician ,URINE Collected: 11/13/2017 Status: F Source: [place] 6:[address] [facility] REPOSITORY TYPE CODE TESTS RESULT OUT OF REFERENCE UNITS RANGE LAB L400.8000 Negative Normal HCGUQUAL Negative Result Comment: Very dilute urine specimens, as indicated by a low specific gravity, may not contain hospital sales representative levels of hCG. If is still suspected, a first morning urine specimen should be collected 48 hours later and tested. Performed By: #### [id number] #### [facility] [address] [facility] [address] [place], [address] EMERGENCY DEPARTMENT Observed: 11/08/2017 Status: F Source: [place] SUMMARY 11:[address] [facility] REPOSITORY [facility] Medical Records Department [address] [place] [address] Emergency Department Summary 11/08/17 1012 MR#: [id number] Acct: [id number] Name: MICHELLE GARCIA Rep #: [id number] : 1975 42 From: Ryne Sood MD PCP: Care Physician, No Primary Status: REG ER - ER Visit Summary Date of Service: 11/08/17 Chief Complaint: Injury to right long finger History of Present Illness: The patient is a 42 F is right- handed presents with injury to right long finger. She closed the door on her finger. Tetanus immunization is unknown. She denies any paresthesia, anesthesia or motor weakness. She is on no anticoagulant or antiplatelet medicine. Physical Examination: Should not completely avulsed the nail of the right long finger. There is a nail bed injury which will require repair and there is evidence of avulsed tissue. The extensor commonness tendon, the flexor digitorum superficialis and the flexor digitorum profundus are intact. Capillary refill is normal. Sensation is normal. Test Results: Three-view x-ray of the right long finger reveals a nondisplaced tuft fracture. Emergency Department Course and Treatment: Three-view x-ray of the right long finger was ordered to evaluate for fracture since she has pain to palpation of the distal phalanx. Tetanus was updated. Treatment Plan: Finger was prepped draped in sterile manner. A digital block was placed using 1% lidocaine. The wound was irrigated with normal saline, 200 cc. The nailbed was repaired using 6-0 Vicryl. A portion of the distal phalanx was exposed and could not be covered when the nailbed was repaired.. The nail was sutured in place since it is intact and will protect the nail bed. Disposition: Follow-up appointment with Dr. Jose Torres tomorrow at 1015, appropriate home-going instruction and cephalexin 500 mg 3 times daily Impression: 1. Open tuft fracture right long finger initial encounter 2. Nailbed repair 3. Reattachment of nail This note was generated with Isowalk dictation software. It may contain incorrect words, spelling, and punctuation that were not noted in review of the chart prior to signing ED Disposition - Plan for ED Patient: Disposition: Home or Assisted Living Chief Complaint: Laceration Instructions: ED Fx Finger Open Prescriptions: Cephalexin [Keflex] 500 mg PO Q8 #14 cap Referrals: Papito Starks MD [NON-STAFF] - Jose Gutiérrez MD [STAFF PHYSICIAN] - 11/09/17 10:15 am What to do if you have Problems For any increased pain, shortness of breath, bleeding, nausea or vomiting, chest pain, or any unexpected problems, contact your Primary Care Provider. Call [facility] ([phone]) or report to the closest Emergency Room. Call 911 if necessary. 11/08/17 1136 <Electronically signed by Ryne Sood MD> Date Ryne Sood MD Cosigner Signature (If Indicated): Date CC: No Primary Care Physician; Jose Gutiérrez MD FINGER(S) MIN 2 VIEWS Observed: 11/08/2017 Status: F Source: [place] 10:[address] [facility] REPOSITORY [facility] Imaging Services [address] [place] [id number] Finger(s) Min 2 Views MR#: [id number] Acct: [id number] Name: MICHELLE GARCIA Rep #: [id number] : 1975 F 42 From: Miller De La Cruz MD PCP: Care Physician, No Primary Status: REG ER Study: Finger(s) Min 2 Views Date of Exam: 11/08/17 Exam# [id number] Ordering Dr: Ryne Sood MD STUDY: X-RAY - RIGHT HAND, ATTENTION MIDDLE FINGER REASON FOR EXAM: Caught distal middle finger in door, nail removed. TECHNIQUE: 3 view(s) of the finger were obtained. COMPARISON: None. FINDINGS: Normal metacarpal head. Normal metacarpophalangeal joint. Normal proximal phalanx. Normal middle phalanx. There is slight deformity of the ungual tuft of the third finger suggestive of remote injury but no demonstrated recent fracture. Normal proximal interphalangeal joint. Normal distal interphalangeal joint. There is soft tissue swelling of the distal aspect of the finger. RAD/Finger(s) Min 2 Views IMPRESSION: Slight deformity of the ungual tuft of the third finger suggestive of remote injury without demonstrated recent fracture. Electronically Signed: Miller De La Cruz MD at 10:53 EST Tel , Service support , CC: No Primary Care Physician; Ryne Sood MD Furniture Finisher Apprentice: Signed PROGRESS Observed: 10/25/2017 Status: COMPLETED Source: [place] 4:13 PM [facility] REPOSITORY HNO ID: [id number] Author: Mali Anderson Service: (none) Author Type: Nurse Practitioner Type: Progress Notes Filed: 10/25/2017 4:32 PM Note Text: [employer] offered: Patient declines. Michelle Garcia presents today for IUD check. She had a Mirena placed on 09/26/2017. She has had no complications since placement. REVIEW OF SYSTEMS: PAIN ASSESSMENT: none GENERAL: no fever or chills PHYSICAL EXAMINATION: BP 110/58 Wt 172 lb (78.0kg) ABDOMEN:soft and non-tender EXTERNAL GENITALIA: Normal genitalia and Bartholins, Urethra, Sken'e normal CERVIX: smooth, no lesions. IUD strings visible. UTERUS: normal size ADNEXA: negative for tenderness or masses IMPRESSION/PLAN: IUD correctly positioned. Patient counseled regarding monthly string check. Follow up for annual exam or sooner if needed. MALI ANDERSON CNP PROGRESS Observed: 09/26/2017 Status: COMPLETED Source: [place] 4:16 PM [facility] REPOSITORY HNO ID: [id number] Author: Mali Anderson Service: (none) Author Type: Nurse Practitioner Type: Progress Notes Filed: 09/26/2017 5:02 PM Note Text: Michelle Garcia presents today for IUD insertion for contraception. No LMP recorded. Patient is not currently having periods (Reason: IUD). GC/chlamydia: Not done: no risk factors and/or patient declines screening test: negative Side effects including irregular bleeding were discussed with the patient. She understands that it should be removed in 5 years or sooner if she desires a . IUD source: office provided IUD lot #: [id number] Exp date: 03/23/20 UNIVERSAL PROTOCOL / SAFETY CHECKLIST Procedure to be performed: Mirena IUD Sign in Communication: Completed Time Out: Team Confirms the Correct Patient, Correct Procedure, Correct Site and Site Marking, Correct Position (if applicable), Prep and Dry Time (if applicable). Time: 1635 Affirmation of Time Out: YES Sign Out Discussion: Completed The uterus sounded to 7 cm and the uterus is Midposition.. After prepping the cervix with betadine and using sterile technique, the Mirena IUD was inserted without difficulty and the string was cut to 2.5cm from the external os of the cervix. Patient tolerated procedure well. PLAN: Patient was advised to observe for signs and symptoms of infection including but not limited to fever, malodorous vaginal discharge and/or pain. She was told to check the string monthly for accurate placement. Bleeding expectations were reviewed. Follow up in one month. MALI ANDERSON CNP CNOV Observed: 09/26/2017 Status: COMPLETED Source: [place] 4:15 PM [facility] REPOSITORY Office Visit (WOOB) MICHELLE GARCIA ([id number]) 1975 F Date Time Provider Department 09/26/17 4:15 PM MALI ANDERSON (KRISTIAN) WOOB During your visit today, we recorded the following information about you: Blood pressure Weight 122/64 77.5 kg MALI ANDERSON CNP 09/26/2017 5:02 PM Signed Michelle Garcia presents today for IUD insertion for contraception. No LMP recorded. Patient is not currently having periods (Reason: IUD). GC/chlamydia: Not done: no risk factors and/or patient declines screening test: negative Side effects including irregular bleeding were discussed with the patient. She understands that it should be removed in 5 years or sooner if she desires a . IUD source: office provided IUD lot #: [id number] Exp date: 03/23/20 UNIVERSAL PROTOCOL / SAFETY CHECKLIST Procedure to be performed: Mirena IUD Sign in Communication: Completed Time Out: Team Confirms the Correct Patient, Correct Procedure, Correct Site and Site Marking, Correct Position (if applicable), Prep and Dry Time (if applicable). Time: 1635 Affirmation of Time Out: YES Sign Out Discussion: Completed The uterus sounded to 7 cm and the uterus is Midposition.. After prepping the cervix with betadine and using sterile technique, the Mirena IUD was inserted without difficulty and the string was cut to 2.5cm from the external os of the cervix. Patient tolerated procedure well. PLAN: Patient was advised to observe for signs and symptoms of infection including but not limited to fever, malodorous vaginal discharge and/or pain. She was told to check the string monthly for accurate placement. Bleeding expectations were reviewed. Follow up in one month. KRISTIAN MARTIN LPN 09/26/2017 4:16 PM Signed POST IUD INSTRUCTIONS You may have irregular bleeding during the first 3 months of use. You may have mild-severe cramping for the next 48 hours. You may use over the counter medication (Motrin, Tylenol) as needed. Your IUD must be removed or replaced in 3 years if you have a Cely, 5 years if you have a Mirena or Kyleena and 10 years if you have a Paragard. Call my office for signs/symptoms of infection such as severe cramping, fever, or unusual bleeding. Check for string placement as instructed by your doctor. If you have any additional questions, please contact the office. Referring Provider: MALI ANDERSON (KRISTIAN) [[id number]] Allergies As of Date: 09/26/2017 Noted Allergy Reaction HAYFEVER (HOMEOPATHIC PRODUCTS) 05/24/2005 Date Reviewed: 09/26/2017 Reviewed by: Magalie He LPN - Fully Assessed Reason for Visit: Insertion Of IUD [291] Primary Visit Diagnosis:Encounter for IUD insertion [Z30.430] Other Visit Diagnosis:Encounter for IUD removal [Z30.432] Order(s):HCG QUAL UR B/O [7525766] Order #: [id number] INSERT INTRAUTERINE DEVICE [[id number]] Order #: [id number] levonorgestrel (MIRENA) 20 mcg/24 hr (5 years) IUDInserted in officeDisp: 1 EachRfl: 0 Prescriptions as of 09/26/2017 Sig: LEVONORGESTREL 20 MCG/24 HR (* Inserted in office KETOTIFEN 0.025 % (0.035 %) E* 1 Drop twice daily. MISOPROSTOL 200 MCG TABLET Insert 2 tablets vaginally ni* BIOTIN 10,000 MCG CAPSULE Take by mouth once daily. OMEPRAZOLE 40 MG CAPSULE,PETRA* Take 1 capsule by mouth once * FLUTICASONE 50 MCG/ACTUATION * Use 1 [place] in each nostril o* Medication notes this encounter MISOPROSTOL 200 MCG TABLET >> Magalie He LPN 09/26/2017 4:24 PM >> MAGALIE HE LPN SunSep 26, 2017 4:24 PM Course of therapy completed Problem List As Of Date 09/26/2017 Noted Resolved Chest pain, unspecified [R07.9] INVALID FOR*05/17/2017 SMOKING (TOBACCO DEPENDENCE) [F17.200] INVALID FOR* ANXIETY STATE NOS [F41.1] INVALID FOR* PAIN ABDOMEN( Other Specific Site or) [R10.9] INVALID FOR* IRRITABLE COLON [K58.9] INVALID FOR* Esophagitis, unspecified [K20.9] INVALID FOR* Irregular menses [N92.6] INVALID FOR* Dysmenorrhea [N94.6] INVALID FOR* Right thyroid nodule [E04.1] INVALID FOR* Altered bowel habits [R19.4] INVALID FOR* More... Atypical chest pain [R07.89] INVALID FOR* Other instructions from your clinician: POST IUD INSTRUCTIONS You may have irregular bleeding during the first 3 months of use. You may have mild-severe cramping for the next 48 hours. You may use over the counter medication (Motrin, Tylenol) as needed. Your IUD must be removed or replaced in 3 years if you have a Cely, 5 years if you have a Mirena or Kyleena and 10 years if you have a Paragard. Call my office for signs/symptoms of infection such as severe cramping, fever, or unusual bleeding. Check for string placement as instructed by your doctor. If you have any additional questions, please contact the office. Prescriptions ordered this encounter Disp Refills Start End LEVONORGESTREL 20 MCG/24 HR (5 YEARS* 1 Ea* 0 09/26/2017 09/26/2022 Class: In Office Cmt: LOT # [id number] EXP 03/23/20 Magalie Latricia LOPEZ Sig: Inserted in office Medications Discontinued During This Encounter LEVONORGESTREL (MIRENA INTRAUTERINE) 09/03/2012 09/26/2017 Class: Historical Med Route: INTRAUTERINE Sig: by INTRAUTERINE route continuous. Disc: Reason for discontinue is not on file. levonorgestrel (MIRENA) 20 mcg/24 hr* 1 Ea* 0 09/03/2012 09/26/2017 Class: In Office Cmt: LOT # [id number] EXP 03/08 Candy Spicer RN Route: INTRAUTERINE Si Each by INTRAUTERINE route one time only for 1 dose. Disc: Reason for discontinue is not on file. Disposition: Return in about 5 weeks (around 10/31/2017) for Follow Up In 4-6 Weeks. Follow-up and Disposition History Recorded Encounter Status:Closed by MALI ANDRESON on 09/26/17 CNCO Observed: 09/25/2017 Status: COMPLETED Source: [place] 2:48 PM [facility] REPOSITORY HNO ID: [id number] Author: Mammography Coordinator Service: (none) Author Type: Physician Type: Letter Filed: 09/26/2017 11:32 PM Note Text: September 25, 2017 PID: [id number] Michelle Garcia [address] [place] [address] Dear Ms. Garcia, Your recent breast imaging examination performed on 09/25/2017 showed an area that we believe is probably benign (not cancer). A six month follow-up is recommended to ensure your breast health. Please call [phone] to schedule an appointment for these tests if you have not already done so. Early detection of cancer is very important. We also understand recommendations regarding breast cancer screening are controversial. Please discuss with your primary care provider which strategy is best for you and whether a mammogram is right for you. Your breast images and report will be kept on file here as part of your permanent medical record and are available for your continuing care. Thank you for allowing us to help in meeting your health care needs. Sincerely, Dr. Carnes Interpreting Radiologist [facility] (# mo Follow-up) [facility] US BREAST LTD Observed: 09/25/2017 Status: F Source: [facility] 1:58 PM [facility] REPOSITORY * * *Final Report* * * DATE OF EXAM: Sep 25 2017 1:58PM [facility] 0593 - [facility] US BREAST LTD LT / PROCEDURE REASON: call back bilateral breast / abnormal mammogram * * * * Physician Interpretation * * * * #[id number] - [facility] US BREAST LTD LT ULTRASOUND OF LEFT BREAST: 09/25/2017 HISTORY: Call Back Bilateral Breast / Abnormal Mammogram. RESULT: No prior exams were available for comparison. Ultrasound of the left breast was performed. Frye scale images of the real-time examination were reviewed. There are two benign complex cysts left breast at 6 o'clock. IMPRESSION: BENIGN FINDING There is no sonographic evidence of malignancy. Adrianna cardona/mary:09/25/2017 14:43:15 Narcotics And Vice Detective: Lolita Capellan [facility] Ultrasound BI-RADS: 2 Benign finding Furniture Finisher Apprentice: Mary Transcribe Date/Time: Sep 25 2017 1:53P Dictated by : ADRIANNA CARNES DO This examination was interpreted and the report reviewed and electronically signed by: ADRIANNA CARNES DO on Sep 25 2017 2:43PM EST [id number] [facility] US BREAST LTD Observed: 09/25/2017 Status: F Source: [place] RT 1:53 PM [facility] REPOSITORY * * *Final Report* * * DATE OF EXAM: Sep 25 2017 1:53PM [facility] 0594 - [facility] US BREAST LTD RT / PROCEDURE REASON: call back bilateral breast / abnormal mammogram * * * * Physician Interpretation * * * * #[id number] - [facility] US BREAST LTD RT ULTRASOUND OF RIGHT BREAST: 09/25/2017 HISTORY: Call Back Bilateral Breast / Abnormal Mammogram. RESULT: No prior exams were available for comparison. Ultrasound of the right breast was performed. Frye scale images of the real-time examination were reviewed. There are probably benign complex cysts right breast at 1, 4, 8, and 11 o'clock. IMPRESSION: PROBABLY BENIGN - SHORT TERM INTERVAL FOLLOW-UP RECOMMENDED Adrianna cardona/mary:09/25/2017 14:33:45 Narcotics And Vice Detective: Loltia Capellan [facility] Ultrasound BI-RADS: 3 Probably benign finding - short term interval follow-up recommended Furniture Finisher Apprentice: Mary Transcrijaspreet Date/Time: Sep 25 2017 1:38P Dictated by : ADRIANNA CARNES DO This examination was interpreted and the report reviewed and electronically signed by: ADRIANNA CARNES DO on Sep 25 2017 2:33PM EST [id number] PROGRESS Observed: 09/25/2017 Status: COMPLETED Source: [place] 1:39 PM [facility] [place] REPOSITORY HNO ID: [id number] Author: Lolita Capellan Rdms Service: (none) Author Type: (none) Type: Progress Notes Filed: 09/25/2017 2:19 PM Note Text: Radiology Service Progress Note PATIENT NAME: Michelle Garcia DATE OF SERVICE: September 25, 2017 TIME: 1:39 PM PATIENT IDENTITY VERIFICATION COMPLETED USING TWO (2) METHODS: Patient confirmed name verbally and Date of . PATIENT GENDER DATA: Female. status: : No status: NO. PATIENT RELEVANT IMPLANT DATA REVIEWED: Not Applicable RADIOLOGY DEPARTMENT: Ultrasound PERIPHERAL IV DATA: Not applicable SIGNED BY: Lolita Capellan Rdms September 25, 2017 1:39 PM [facility] DIAGNOSTIC JOSE Observed: 09/25/2017 Status: F Source: [place] 1:27 PM [facility] REPOSITORY * * *Final Report* * * DATE OF EXAM: Sep 25 2017 1:27PM [facility] 0620 - [facility] DIAGNOSTIC JOSE / PROCEDURE REASON: call back bilateral breast / abnormal mammogram * * * * Physician Interpretation * * * * RESULT: #[id number] - [facility] DIAGNOSTIC JOSE BILATERAL DIGITAL DIAGNOSTIC MAMMOGRAM WITH CAD: 09/25/2017 HISTORY: Call Back Bilateral Breast / Abnormal Mammogram /Patient reports NO breast symptoms. RESULT: TECHNIQUE: The study was acquired using full field digital technology and interpreted from soft copy. Current study was also evaluated with a Computer Aided Detection (CAD). Comparison is made to exams dated: 09/20/2017 mammogram - [facility], 04/10/2017 mammogram, 10/10/2016 mammogram - [facility], 09/14/2016 mammogram, 09/13/2015 mammogram, and 09/10/2014 mammogram - [facility]. The tissue of both breasts is heterogeneously dense. This may lower the sensitivity of mammography. There is a nodule in the right breast at 11 o'clock middle depth. There also is a nodule in the right breast at 1 o'clock middle depth. Additionally, there is an asymmetry in the right breast at 4 o'clock anterior depth. There is an asymmetry in the left breast at 6 o'clock anterior depth. No other significant masses or calcifications are seen in either breast. IMPRESSION: PROBABLY BENIGN - SHORT TERM INTERVAL FOLLOW-UP RECOMMENDED The nodule in the right breast at 11 o'clock middle depth is indeterminate. Spot compression and lateral views as well as a possible ultrasound are recommended. The nodule in the right breast at 1 o'clock middle depth is indeterminate. Spot compression and lateral views as well as a possible ultrasound are recommended. The asymmetry in the right breast at 4 o'clock anterior depth is indeterminate. Spot compression and lateral views as well as a possible ultrasound are recommended. The asymmetry in the left breast at 6 o'clock anterior depth is indeterminate. Spot compression and lateral views as well as a possible ultrasound are recommended. A follow-up mammogram and an ultrasound in 6 months is recommended to demonstrate stability. SUMMARY: Multiple complex cystic lesions in each breast are seen on ultrasound. Cannot be certain the mammographic findings and ultrasound finding correspond to same lesion. Therefore, 6 mo follow up recommended. Adrianna cardona/mary:09/25/2017 14:48:40 Narcotics And Vice Detective: Kenzie MARSHALL(Zina)(Keely), [facility] letter sent: # Mo FU Mammogram BI-RADS: 3 Probably benign finding - short term interval follow-up recommended Furniture Finisher Apprentice: Mary Transcribe Date/Time: Sep 25 2017 1:01P Dictated by: ADRIANNA CARNES DO This examination was interpreted and the report reviewed and electronically signed by: ADRIANNA CARNES DO on Sep 25 2017 2:48PM EST [id number] PROGRESS Observed: 09/25/2017 Status: COMPLETED Source: [place] 1:01 PM [facility] REPOSITORY HNO ID: [id number] Author: Rosamaria Marshall Service: (none) Author Type: (none) Type: Progress Notes Filed: 09/25/2017 1:39 PM Note Text: Radiology Service Progress Note PATIENT NAME: Michelle Garcia DATE OF SERVICE: September 25, 2017 TIME: 1:01 PM PATIENT IDENTITY VERIFICATION COMPLETED USING TWO (2) METHODS: Patient confirmed name verbally and Date of . PATIENT GENDER DATA: Female. status: : No status: NO. PATIENT RELEVANT IMPLANT DATA REVIEWED: Not Applicable RADIOLOGY DEPARTMENT: [facility] scr mammogram PERIPHERAL IV DATA: Not applicable SIGNED BY: Rosamaria Edwards Rt September 25, 2017 1:01 PM CNCO Observed: 09/20/2017 Status: COMPLETED Source: [place] 10:45 AM [facility] REPOSITORY HNO ID: [id number] Author: Mammography Coordinator Service: (none) Author Type: Physician Type: Letter Filed: 09/24/2017 11:31 PM Note Text: September 20, 2017 PID: [id number] Michelle Garcia [address] [place] [address] Dear Ms. Garcia, Your recent breast imaging exam on 09/20/2017 showed a possible finding that requires additional imaging studies for a complete evaluation. Most such findings are probably benign (not cancer). Please call [phone] to schedule an appointment for these tests if you have not already done so. Your mammogram demonstrates that you have dense breast tissue, which could hide abnormalities. Dense breast tissue, in and of itself, is a relatively common condition. Therefore, this information is not provided to cause undue concern; rather, it is to raise your awareness and promote discussion with your health care provider regarding the presence of dense breast tissue in addition to other risk factors. Your breast images and report will be kept on file here as part of your permanent medical record and are available for your continuing care. Thank you for allowing us to help in meeting your health care needs. Sincerely, Dr. Barclay Interpreting Radiologist [facility] (Additional imaging) [facility] SCREENING Observed: 09/20/2017 Status: F Source: [place] 9:33 AM [facility] REPOSITORY * * *Final Report* * * DATE OF EXAM: Sep 20 2017 9:33AM [facility] 0581 - [facility] SCREENING / PROCEDURE REASON: Encounter for screening mammogram for malignant neoplasm of breast * * * * Physician Interpretation * * * * RESULT: #[id number] - [facility] SCREENING BILATERAL DIGITAL SCREENING MAMMOGRAM WITH CAD: 09/20/2017 HISTORY: Encounter For Screening Mammogram For Malignant Neoplasm Of Breast\ Screening Mammogram - patient reports NO breast symptoms /priors available for comparison. RESULT: TECHNIQUE: The study was acquired using full field digital technology and interpreted from soft copy. Current study was also evaluated with a Computer Aided Detection (CAD). Comparison is made to exams dated: 04/10/2017 mammogram, 10/10/2016 mammogram - [facility], 09/14/2016 mammogram, 09/13/2015 mammogram, and 09/10/2014 mammogram - [facility]. The tissue of both breasts is heterogeneously dense. This may lower the sensitivity of mammography. There are multiple focal asymmetries in the right breast upper outer aspect middle depth. There are multiple focal asymmetries in the left breast lower inner aspect anterior depth. No other significant masses or calcifications are seen in either breast. IMPRESSION: INCOMPLETE: NEEDS ADDITIONAL IMAGING EVALUATION The multiple focal asymmetries in the right breast upper outer aspect middle depth are indeterminate. Additional views are recommended. The multiple focal asymmetries in the left breast lower inner aspect anterior depth are indeterminate. Additional views are recommended. Solitario hendrix/mary:09/20/2017 10:45:45 Narcotics And Vice Detective: Kenzie Coyne RT(R)(M), [facility] letter sent: Additional Imaging Needed Mammogram BI-RADS: 0 Incomplete: needs additional imaging evaluation Furniture Finisher Apprentice: Mary Transcribe Date/Time: Sep 20 2017 9:34A Dictated by: SOLITARIO BARCLAY MD This examination was interpreted and the report reviewed and electronically signed by: SOLITARIO BARCLAY MD on Sep 20 2017 10:45AM EST [id number] PROGRESS Observed: 09/11/2017 Status: COMPLETED Source: [place] 4:19 PM [facility] RE[facility] HNO ID: [id number] Author: Mali Anderson Service: (none) Author Type: Nurse Practitioner Type: Progress Notes Filed: 09/11/2017 5:03 PM Note Text: Michelle Garcia is a 42 year old who presents for her annual gynecologic exam without complaints. Menses: no menses - Mirena IUD; Irregular spotting only. Contraception: none, not sexually active HPV vaccine: No Last Pap: 2016 normal HPV: negative History of abnormal pap: Yes, LEEP 2001 Last mammogram: 2016abnormal, cysts in right breast at 1 o'clock Sexually active: No Obstetric History T0 L0 SAB0 TAB0 Ectopic0 Multiple0 Live Births0 PAST MEDICAL HISTORY Diagnosis Date - Allergic rhinitis, cause unspecified Allergic rhinitis - Asthma borderline - Chest pain, unspecified - Dysplasia of cervix, unspecified 2001 severe dysplasia - Esophagitis, unspecified - GERD (gastroesophageal reflux disease) - Snoring - Tobacco use disorder PAST SURGICAL HISTORY Procedure Laterality Date - CERVIX UTERI CONIZA LP ELCTRO EXCI 2001 LEEP-Cervix - COLONOSCOPY W/BX 03/30/2017 Normal visualized: Normal terminal ileum-biopsies returned as normal terminal ileum and no signs of microscopic colitis - EGD W/O [facility] SPECIMEN W/BX [id number] - FNA WITH IMAGING Right 08/17/15 U/S FNA right thyroid - INSERTION OF IUD 09/03/2012 - PAST SURGICAL HISTORY OF 1996 foot surgery on right - PAST SURGICAL HISTORY OF 12/13/12 Right foot bone shaved 4th toe, Dr. Carpio - RHINOPLASTY 07/11/2016 - SEPTOPLASTY Jul [address] Jacquelyn Pulido. FAMILY HISTORY Problem Relation Age of Onset - Breast Cancer Maternal Grandmother - Cancer Maternal Grandfather leukemia - Diabetes Paternal Grandfather - heart attack [OTHER] Mother - Cancer Father STAGE 4 LUNG - psoriasis [OTHER] Father - Cancer Paternal Uncle ? primary. - Cancer Other Colon. Both maternal great grandparents. - Other [OTHER] Other 5 of mgf's sibling with cancer various types SOCIAL HISTORY Social History Substance Use Topics - Smoking status: Current Every Day Smoker Packs/day: 0.50 Years: 20.00 Types: Cigarettes Start date: 06/24/1995 - Smokeless tobacco: Former User Types: Chew Comment: Started few/day age 18. Father smoked in childhood home. - Alcohol use Yes Comment: Socially. REVIEW OF SYSTEMS Abdomen: No abdominal pain, nausea, vomiting, diarrhea, or constipation. No bloating, early satiety, indigestion, or increased flatulence. Has long-standing stomach issues for the past several years - has had scopes and colonoscopy Bladder: No dysuria, gross hematuria, urinary frequency, urinary urgency, or incontinence. Breast: No breast lumps, nipple d/c, overlying skin changes, redness or skin retraction. Allergies and current medication updated:Yes EXAM: BP 110/60 Ht 5' 3 (1.60m) Wt 168 lb (76.2kg) BMI 29.77 kg/(m2). GENERAL: pleasant, female in no apparent distress HEENT: Normocephalic, atraumatic, mucus membranes moist and no lesions NECK: Supple, full range of motion, no adenopathy and thyroid normal DERMATOLOGY: Normal, without lesions, non-icteric and non-hirsute BREAST: soft, non-tender, symmetric, no dominant mass, normal nipple-areolar complex, no lymphadenopathy and no nipple discharge CHEST: Normal inspiratory effort ABDOMEN: soft, non-tender and no masses PELVIC: external genitalia normal, normal Bartholin's glands, urethra, [place]'s glands, no vulvar lesions, no cervical lesions, good vaginal support, physiologic discharge present, normal appearing perineal body and perianal region. BIMANUAL: uterus normal size, shape and consistency, no adnexal masses and non-tender RECTOVAGINAL: deferred. NEURO: alert and oriented x3,exam grossly non-focal EXTREMITIES: normal ASSESSMENT/PLAN: 1) Health maintenance: Pap/HPV up to date. Mammogram ordered. Nutrition, exercise and routine health maintenance exams reviewed. 2) Contraception: IUD. Contraceptive options reviewed and information provided. Has Mirena for HMB which was inserted in 2011 - will pre-certify removal of and reinsertion of Mirena. Cytotec sent to pharmacy. 3) STD screening: Declined STD check. 4) Follow up one year or sooner as needed MALI ANDERSON CNP CNOV Observed: 09/11/2017 Status: COMPLETED Source: [place] 4:15 PM [facility] REPOSITORY Office Visit (WOOB) MICHELLE GARCIA ([id number]) 1975 F Date Time Provider Department 09/11/17 4:15 PM MALI ANDERSON (KRISTIAN) WOOB During your visit today, we recorded the following information about you: Blood pressure Weight Height 110/60 76.2 kg 1.6 m MALI ANDERSONKRISTIAN 09/11/2017 5:03 PM Addendum Michelle Garcia is a 42 year old who presents for her annual gynecologic exam without complaints. Menses: no menses - Mirena IUD; Irregular spotting only. Contraception: none, not sexually active HPV vaccine: No Last Pap: 2016 normal HPV: negative History of abnormal pap: Yes, LEEP 2001 Last mammogram: 2016abnormal, cysts in right breast at 1 o'clock Sexually active: No Obstetric History T0 L0 SAB0 TAB0 Ectopic0 Multiple0 Live Births0 PAST MEDICAL HISTORY Diagnosis Date - Allergic rhinitis, cause unspecified Allergic rhinitis - Asthma borderline - Chest pain, unspecified - Dysplasia of cervix, unspecified 2001 severe dysplasia - Esophagitis, unspecified - GERD (gastroesophageal reflux disease) - Snoring - Tobacco use disorder PAST SURGICAL HISTORY Procedure Laterality Date - CERVIX UTERI CONIZA LP ELCTRO EXCI 2001 LEEP-Cervix - COLONOSCOPY W/BX 03/30/2017 Normal visualized: Normal terminal ileum-biopsies returned as normal terminal ileum and no signs of microscopic colitis - EGD W/O [facility] SPECIMEN W/BX [id number] - FNA WITH IMAGING Right 08/17/15 U/S FNA right thyroid - INSERTION OF IUD 09/03/2012 - PAST SURGICAL HISTORY OF 1996 foot surgery on right - PAST SURGICAL HISTORY OF 12/13/12 Right foot bone shaved 4th toe, Dr. Carpio - RHINOPLASTY 07/11/2016 - SEPTOPLASTY Jul [address] Jacquelyn Pulido. FAMILY HISTORY Problem Relation Age of Onset - Breast Cancer Maternal Grandmother - Cancer Maternal Grandfather leukemia - Diabetes Paternal Grandfather - heart attack [OTHER] Mother - Cancer Father STAGE 4 LUNG - psoriasis [OTHER] Father - Cancer Paternal Uncle ? primary. - Cancer Other Colon. Both maternal great grandparents. - Other [OTHER] Other 5 of mgf's sibling with cancer various types SOCIAL HISTORY Social History Substance Use Topics - Smoking status: Current Every Day Smoker Packs/day: 0.50 Years: 20.00 Types: Cigarettes Start date: 06/24/1995 - Smokeless tobacco: Former User Types: Chew Comment: Started few/day age 18. Father smoked in childhood home. - Alcohol use Yes Comment: Socially. REVIEW OF SYSTEMS Abdomen: No abdominal pain, nausea, vomiting, diarrhea, or constipation. No bloating, early satiety, indigestion, or increased flatulence. Has long-standing stomach issues for the past several years - has had scopes and colonoscopy Bladder: No dysuria, gross hematuria, urinary frequency, urinary urgency, or incontinence. Breast: No breast lumps, nipple d/c, overlying skin changes, redness or skin retraction. Allergies and current medication updated:Yes EXAM: BP 110/60 Ht 5' 3ANDquot; (1.60m) Wt 168 lb (76.2kg) BMI 29.77 kg/(m2). GENERAL: pleasant, female in no apparent distress HEENT: Normocephalic, atraumatic, mucus membranes moist and no lesions NECK: Supple, full range of motion, no adenopathy and thyroid normal DERMATOLOGY: Normal, without lesions, non-icteric and non-hirsute BREAST: soft, non-tender, symmetric, no dominant mass, normal nipple-areolar complex, no lymphadenopathy and no nipple discharge CHEST: Normal inspiratory effort ABDOMEN: soft, non-tender and no masses PELVIC: external genitalia normal, normal [place]tholin's glands, urethra, [place]'s glands, no vulvar lesions, no cervical lesions, good vaginal support, physiologic discharge present, normal appearing perineal body and perianal region. BIMANUAL: uterus normal size, shape and consistency, no adnexal masses and non-tender RECTOVAGINAL: deferred. NEURO: alert and oriented x3,exam grossly non-focal EXTREMITIES: normal ASSESSMENT/PLAN: 1) Health maintenance: Pap/HPV up to date. Mammogram ordered. Nutrition, exercise and routine health maintenance exams reviewed. 2) Contraception: IUD. Contraceptive options reviewed and information provided. Has Mirena for HMB which was inserted in 2011 - will pre-certify removal of and reinsertion of Mirena. Cytotec sent to pharmacy. 3) STD screening: Declined STD check. 4) Follow up one year or sooner as needed KRISTIAN MARTIN CNP 09/11/2017 4:43 PM Signed Cytotec per instructions Ibuprofen 600 mg 30 minutes prior to appointment. Referring Provider: SELF [200] Allergies As of Date: 09/11/2017 Noted Allergy Reaction HAYFEVER (HOMEOPATHIC PRODUCTS) 05/24/2005 Date Reviewed: 09/11/2017 Reviewed by: Mali Anderson - Fully Assessed Reason for Visit: Gore Stitcher Exam [50] Primary Visit Diagnosis:Encounter for gynecological examination (general) (routine) without abnormal findings [Z01.419] Other Visit Diagnoses:Encounter for screening mammogram for malignant neoplasm of breast [Z12.31] Menorrhagia with regular cycle [N92.0] Order(s):VIVIEN SCREENING [[id number]] Order #: [id number] FUTURE INSERT INTRAUTERINE DEVICE [[id number]] Order #: [id number] miSOPROStol (CYTOTEC) 200 mcg tabletInsert 2 tablets vaginally night before procedure and 2 tablets morning of procedure.Disp: 4 tabletRfl: 0 Prescriptions as of 09/11/2017 Sig: KETOTIFEN 0.025 % (0.035 %) E* 1 Drop twice daily. MISOPROSTOL 200 MCG TABLET Insert 2 tablets vaginally ni* BIOTIN 10,000 MCG CAPSULE Take by mouth once daily. OMEPRAZOLE 40 MG CAPSULE,PETRA* Take 1 capsule by mouth once * FLUTICASONE 50 MCG/ACTUATION * Use 1 [place] in each nostril o* Problem List As Of Date 09/11/2017 Noted Resolved Chest pain, unspecified [R07.9] INVALID FOR*05/17/2017 SMOKING (TOBACCO DEPENDENCE) [F17.200] INVALID FOR* ANXIETY STATE NOS [F41.1] INVALID FOR* PAIN ABDOMEN( Other Specific Site or) [R10.9] INVALID FOR* IRRITABLE COLON [K58.9] INVALID FOR* Esophagitis, unspecified [K20.9] INVALID FOR* Irregular menses [N92.6] INVALID FOR* Dysmenorrhea [N94.6] INVALID FOR* Right thyroid nodule [E04.1] INVALID FOR* Altered bowel habits [R19.4] INVALID FOR* More... Atypical chest pain [R07.89] INVALID FOR* Other instructions from your clinician: Cytotec per instructions Ibuprofen 600 mg 30 minutes prior to appointment. Prescriptions ordered this encounter Disp Refills Start End MISOPROSTOL 200 MCG TABLET 4 ta* 0 09/11/2017 Sig: Insert 2 tablets vaginally night before procedure and 2 tablets morning of procedure. Medications Discontinued During This Encounter naproxen sodium (ALEVE) 220 mg cap 09/11/2017 Class: Historical Med Route: ORAL Sig: Take 2 capsules by mouth once daily. Disc: Reason for discontinue is not on file. beclomethasone 80 mcg/actuation inha* 1 In* 6 04/27/2014 09/11/2017 Route: INHALATION Sig: Inhale 1 Puff as instructed twice daily. Disc: Reason for discontinue is not on file. albuterol HFA (PROVENTIL HFA) 90 mcg* 1 In* 3 04/27/2014 09/11/2017 Route: INHALATION Sig: Inhale 2 Puffs as instructed every 4 hours as needed for Wheezing/Shortness of Breath. Disc: Reason for discontinue is not on file. Disposition: Return in 1 year (on 09/11/2018) for Annual Exam. Follow-up and Disposition History Recorded Encounter Status:Closed by MALI ANDERSON on 09/11/17 ALLERGIES ALLERGIES DATE TYPE / CODE NAME / CODE REACTION SEVERITY SOURCE 08/19/2018 Drug No Known Unknown Tess Allergy/416 Allergies/[id number] [facility] 028157(SNOM 88(RXNORM) Hospital ED CT) Repository 05/24/2005 DRUG/340033 HOMEOPATHIC [facility] 003(SNOMED PRODUCTS Main [place] CT) Repository ENCOUNTERS ENCOUNTERS ADMIT/DISCHARGE ACCOUNT ADMITTING ENCOUNTER LOCATION SOURCE NUMBER CLASS 08/20/2018/08/20/20 [id number] Ambulatory [address] ing:SDCRoom: Repository AC19 07/18/2018/07/18/20 [id number] Ambulatory BMSBuilding:[place] [address] [place] Repository 03/26/2018/03/26/20 [id number] Ambulatory [address] Repository 03/26/2018/03/26/20 [id number] Ambulatory [address] Repository 03/14/2018/03/14/20 [id number] Ambulatory BMSBuilding:B [place] [address] [facility] Repository 02/19/2018/02/20/[id number] ing:OT Repository 01/24/2018/01/25/20 [id number] Ambulatory BMSBuilding:B [place] [address] [facility] Repository 01/21/2018/01/22/20 [id number] Ambulatory [address] Repository 01/03/2018/01/04/20 [id number] Ambulatory BMSBuilding:B [place] [address] [facility] Repository 12/26/2017/12/27/19 [id number] Ambulatory BMSBuilding:B [place] [address] [facility] Repository 12/12/2017/12/13/19 [id number] Ambulatory BMSBuilding:[facility] [place] [address] [facility] Repository 11/28/2017/11/29/19 [id number] Ambulatory BMSBuilding:B [place] [address] [facility] Repository 11/21/2017/11/21/19 [id number] Ambulatory BMSBuilding:[facility] [place] [address] [facility] Repository 11/13/2017/11/13/19 [id number] Ambulatory [address] ing:SDC Repository 11/13/2017 [id number] Ambulatory BMSBuilding:B [place] MS.CF.[facility] Repository 11/09/2017/11/09/19 [id number] Ambulatory BMSBuilding:B [place] [address] [facility] Repository 11/08/2017/11/08/19 [id number] Emergency [address] ing:ED Repository 10/25/2017/10/29/19 [id number] Ambulatory [address] Repository 09/26/2017/10/29/19 [id number] Ambulatory [address] Repository 09/25/2017/09/25/19 [id number] Ambulatory [address] Repository 09/25/2017/09/25/19 [id number] Ambulatory [address] Repository 09/20/2017/09/20/20 [id number] Ambulatory [address] Repository 09/11/2017/09/12/20 [id number] Ambulatory [address] Repository PAYERS PAYERS ENCOUNTER GUARANTOR PAYER SUBSCRIBER SOURCE 08/20/2018 MICHELLE [id number] Primary MICHELLE Pulido [place] [facility] YAMILEXB: [facility] [place]: [id number] Hospital 96290Ejx: (330 [id number] Repository [phone] (HP) Date:0557-23-95WK [address] [place] [address] [place] [address]GJ: 08/20/2018 Secondary NOT GIVENUNK [place] Insurance:SELF PAY [facility] Number: Effective Repository Date:2018-08-05 07/18/2018 MICHELLE E [id number] Primary MICHELLE E [place] Insurance:ANTHEMPolic BADGERDOB: [place]: [id number] Hospital [address]Ybh: (330) [id number] Repository [phone] (HP) Date:8824-40-89TQ [address] [place] [address]DE: 07/18/2018 Secondary NOT GIVENUNK [place] Insurance:SELF PAY [facility] Number: Effective Repository Date:2018-07-16 03/14/2018 MICHELLE E [id number] Primary MICHELLE E Tess [place] Insurance:ANTHEMPolic [place]DOB: [place] Number: [id number] Hospital [address]Vhb: (330) [id number] Repository [phone] (HP) Date:1932-86-36[address] [place] [address]XC: 03/14/2018 Secondary NOT GIVENUNK Tess Insurance:SELF PAY [facility] Number: Effective Repository Date:2018-03-08 02/19/2018 MICHELLE E [id number] Primary MICHELLE E Tess [place] Insurance:ANTHEMPolic BADGERDOB: [place] Number: [id number] Hospital 39[address]Bbi: [id number] Repository [phone] Date:4133-19-82IU [address] ([place]) [address] [address]LH: 02/19/2018 Secondary NOT GIVENUNK Tess Insurance:SELF PAY [facility] Number: Effective Repository Date:2017-12-19 01/24/2018 MICHELLE E [id number] Primary MICHELLE E Tess [place] Insurance:ANTHEMPolic B[place]DOB: [place] Number: [id number] Hospital [address]Yxj: [id number] Repository [phone] Date:8096-21-65JO [address] () [address]35[address]YTSNZXK, [place] [address]GE: 01/24/2018 Secondary NOT GIVENUNK Tess Insurance:SELF PAY [facility] Effective Repository Date:2018-01-24 01/03/2018 MICHELLE E [id number] Primary MICHELLE E Tess [place] Insurance:ANTHEMPolic B[place]DOB: [place] Number: [id number] Hospital [address]Lxf: [id number] Repository [phone] Date:9459-13-56HZ [address] () [id number], [place] [address]CE: 01/03/2018 Secondary NOT GIVENUNK Tess Insurance:SELF PAY [facility] Number: Effective Repository Date:2018-01-03 12/26/2017 MICHELLE E [id number] Primary MICHELLE E Tess [place] Insurance:ANTHEMPolic B[place]DOB: [place] Number: [id number] Hospital [address]Rmb: [id number] Repository [phone] Date:4471-70-01WB [address] () 171263VXVRICJ, [place] [address]DJ: 12/26/2017 Secondary NOT GIVENUNK [place] Insurance:SELF PAY [facility] Number: Effective Repository Date:2017-12-26 12/12/2017 MICHELLE E [id number] Primary MICHELLE E Tess [place] Insurance:ANTHEMPolic B[place]DOB: [place] Number: [id number] Hospital [address]Nne: [id number] Repository [phone] Date:0490-97-46YZ [address] () [address]87[address]ALDUZ, [place] [address]UO: 12/12/2017 Secondary NOT GIVENUNK Tess Insurance:SELF PAY [facility]: Effective Repository Date:2017-12-12 11/28/2017 MICHELLE E [id number] Primary MICHELLE E Tess [place] Insurance:ANTHEMPolic B[place]DOB: [place] Number: [id number] Hospital [address]Brc: [id number] Repository [phone] Date:3792-41-92EV [address] () 770137YJNXESI, [place] [address]OV: 11/28/2017 Secondary NOT GIVENUNK Tess Insurance:SELF PAY [facility] Number: Effective Repository Date:2017-11-21 11/21/2017 MICHELLE E [id number] Primary MICHELLE E [place] Insurance:ANTHEMPolic B[place]DOB: [place] Number: [id number] Hospital [address]Mav: [id number] Repository [phone] Date:9025-60-55YB [address] () [address]394[address]MCZHNXY, [place] [address]CM: 11/21/2017 Secondary NOT GIVENUNK Tess Insurance:SELF PAY [facility] Number: Effective Repository Date:2017-11-13 11/13/2017 MICHELLE E [id number] Primary MICHELLE E [place] Insurance:ANTHEMPolic B[place]DOB: [place] Number: [id number] Hospital [address]Cse: [id number] Repository [phone] Date:9403-34-89KG [address] () 057676ZPMLNKZNELIA CHANEY [address]IF: 11/13/2017 Secondary NOT GIVENUNK Tess Insurance:SELF PAY [facility] Number: Effective Repository Date:2017-11-09 11/13/2017 MICHELLE E [id number] Primary MICHELLE E [place] Insurance:ANTHEMPolic B[place]DOB: [place] Number: [id number] Hospital [address]Ikd: [id number] Repository [phone] Date:4137-16-69FB [address] () 171519FBUGESJ, [place] [address]SH: 11/13/2017 Secondary NOT GIVENUNK [place] Insurance:SELF PAY [facility] Number: Effective Repository Date:2017-11-13 11/09/2017 MICHELLE E [id number] Primary MICHELLE E [place] Insurance:ANTHEMPolic BADGERDOB: Community [place]ion [place] Number: [id number] Hospital [address]Lom: [id number] Repository [phone] Date:6333-80-22ME [address] () 874576RBNMEPU, [place] [address]TW: 11/09/2017 Secondary NOT GIVENUNK Tess Insurance:SELF PAY [facility] Number: Effective Repository Date:2017-11-08 11/08/2017 Michelle E [id number] Primary Michelle E [place] Insurance:ANTHEMPolic BadgerDOB: [facility] [place]ion [place] Number: [id number] Hospital [address]Woe: [id number] Repository [phone] Date:8519-32-77QF [address] () 102217BCYCMBN, [place] [address]FS: 11/08/2017 Secondary NOT GIVENUNK Tess Insurance:SELF PAY [facility] Number: Effective Repository Date:2017-11-08
== END 2018-08-20 14:34 | disposition home or self-care (01) ==
LOC: SDC 11:34 → AC 11:34
PROVIDERS: Anesthesiology; Referring Provider Otolaryngology; Visit Provider Otolaryngology
PROC: (CPT 69799; principal; 2018-08-20 13:15)
DX: H69.83 Other specified disorders of Eustachian tube, bilateral (principal); H65.23 Chronic serous otitis media, bilateral; L40.9 Psoriasis, unspecified; M32.9 Systemic lupus erythematosus, unspecified; K21.9 Gastro-esophageal reflux disease without esophagitis; F17.200 Nicotine dependence, unspecified, uncomplicated
CPT/HCPCS: 00126; 69436; 81025; J7120; J2405

== ENCOUNTER → 2019-08-14 10:40 | Outpatient (CLI) | payer BC, SELFPAY ==
[2019-07-28 09:29] VITALS: BMI 28.3
--- NOTE | 2019-08-14 18:19 | NEURO ---
NCS and/or EMG Patient Report HPI: Patient is a 44-year-old female who presented with weakness in the right shoulder and arm which started about 2 and 1/2 weeks ago. Patient experienced shooting pain in the right shoulder and difficulty lifting right arm. Patient states that she had an MRI of the right shoulder which showed mild tendinosis and arthritis but no rotator cuff tear. Patient still having difficulty lifting the right arm. Patient does not complain of any numbness, tingling or weakness in the right hand. Patient does not have any neck pain but occasional spasm and stiffness in the neck. Patient does not have diabetes. Physical Exam: Right shoulder mild tenderness noted, decreased range of motion of the right shoulder especially in the right abduction, internal and external rotation. Difficulty noted in lifting the right arm at shoulder level especially in abduction and forward flexion. Mild weakness of the right hand finger flexors and finger abductors weakness. Findings: 1. Normal sensory and motor nerve conduction studies of the right upper extremity. 2, Normal needle examination of the right upper extremity including right cervical paraspinal muscles. Impression: Normal nerve conduction studies and EMG examination of the right upper extremity. Recommendation: Clinical correlation and appropriate work-up is recommended.
== END ==
PROVIDERS: Family Provider Physician Assistant; PCP Physician Assistant; Referring Provider Physician Assistant; Visit Provider Physician Assistant
DX: M25.511 Pain in right shoulder (principal); G83.21 Monoplegia of upper limb affecting right dominant side
CPT/HCPCS: 95886; 95910

== ENCOUNTER → 2021-09-20 07:53 | Outpatient (CLI) | payer OTHER, SELFPAY ==
--- NOTE | 2021-09-20 08:06 | RAD_ITS ---
INDICATION: REFLUX DISEASE EXAMINATION/TECHNIQUE: Thick and thin oral contrast in addition to effervescent granules were administered orally to the patient. Total Fluoroscopic Time: 3:49 minutes/seconds. Number of Fluoroscopic Images: 31 COMPARISON: 07/18/2013. FINDINGS: Unremarkable transit of the contrast bolus through the esophagus into the stomach. The stomach demonstrates unremarkable contours. No masses or strictures are identified. The mucosal pattern is unremarkable. There is normal motility. Reflux was not elicited. RAD/Upper GI Dual Contrast IMPRESSION: Unremarkable fluoroscopic evaluation of the stomach, no gastroesophageal reflux was seen. Electronically Signed: Chris Walker MD at 14:36 EST Tel , Service support ,
== END ==
PROVIDERS: PCP Physician Assistant
DX: K21.9 Gastro-esophageal reflux disease without esophagitis (principal)
CPT/HCPCS: 74246

== ENCOUNTER → 2022-10-11 | Outpatient (CLI) | payer BC, SELFPAY ==
[2022-10-11 17:57] LABS: Absolute Lymphocyte Count 3.47 X10^3/uL (0.83-4.51); Absolute Neutrophil Count 3.6 X10^3/uL (2.0-7.7); Basophil# 0.03 X10^3/uL; Basophil% 0.4 % (0-1); Eosinophil# 0.12 X10^3/uL; Eosinophils% 1.5 % (0-5); Hematocrit 44.7 % (37-47); Hemoglobin 14.7 g/dL (12.0-15.0); Lymphocyte # 3.47 X10^3/ul (0.83-4.51); Lymphocyte % 43.5 % (19-41); Mean Corp Hgb Conc 32.9 g/dL (32-36); Mean Corpuscular Hgb 32.5 pg (27.0-32.0); Mean Corpuscular Volume 98.7 fL (81-99); Mean Platelet Vol. 11.3 fl (6.2-12.0); Monocyte# 0.79 X10^3/uL; Monocyte% 9.9 % (0-10); NRBC Flagged by Analyzer 0 % (0-5); Neutrophil # 3.55 X10^3/uL (2.7-7.7); Neutrophil % 44.4 % (47-70); Platelet Count 264 K/mm3 (150-450); RBC Distribution Width CV 11.1 % (11.6-14.6); RBC Distribution Width SD 40.5 fl (35.1-43.9); Red Blood Count 4.53 M/mm3 (4.2-5.4)
[2022-10-11 18:47] LABS: ALB/GLOB Ratio 1.5 RATIO (0.9-2.4); AST(SGOT) 23 U/L (15-37); Alanine Aminotransfer ALT/SGPT 38 U/L (13-56); Albumin, Serum 4.1 g/dL (3.2-5.0); Alkaline Phosphatase 132 U/L (45-117); Anion Gap 7 (5-15); BUN 12 mg/dL (7-18); BUN/Creat Ratio 17.5 RATIO (10-20); Calcium,Total 10.9 mg/dL (8.5-10.1); Chloride 101 mmol/L (98-107); Creatinine, Serum 0.69 mg/dL (0.55-1.02); EST Glomerular Filtration Rate 97 mL/min (>60); Est Glom Filt Rate - Afr Amer 117 mL/min (>60); Globulin 2.7 g/dL (2.2-4.2); Glucose 96 mg/dL (74-106); Potassium 4.3 mmol/L (3.5-5.1); Protein, Total 6.8 g/dL (6.4-8.2); Sodium Level 136 mmol/L (136-145)
== END | disposition home or self-care (01) ==
LOC: MFPLAB 16:15
PROVIDERS: PCP Physician Assistant; Visit Provider Family Medicine
DX: Z01.818 Encounter for other preprocedural examination (principal)
CPT/HCPCS: 36415; 80053; 85025

== ENCOUNTER 2022-10-20 05:55 | Day surgery (SDC) | payer BC, SELFPAY ==
[2022-10-20 06:19] LABS: Internal QC Validated? YES +Cl - CLEAR BKGD; Pregnancy, Urine Negative Negative
[2022-10-20] MEDS: Lactated Ringers 1,000 ML 15 ML IV ×2 (06:25→08:00)
[2022-10-20 06:26] VITALS: BP 116/72; PULSE 63; RESP 18; TEMP 36.8; O2SAT 98; BMI 28.8
--- NOTE | 2022-10-20 07:30 | BON_PTH ---
PATIENT: KYMBERLY CORREA LOC: [facility] U#:[id number] AGE/SX: 47/F ROOM: RE10/20/[address]: Dr. Luis Barker DPM : 1975 BED: DIS: 10/20/2022 SPEC #: [id number] RECD: 10/20/22 08:52 STATUS: DELON RENory #: [id number] OTILIA: 10/20/22 07:[address]: Luis Barker DEPT: SURGICAL PATHOLOGY RECD BY: Camille Enrique ENTERED: 10/20/22 10:30 SP TYPE: Bone OTHR DR: KARTHIK Soriano Tissues: A - Toe, NOS B - Toe, NOS Procedures: Decalcification bone/plaque Surgery Specimen Level III HEADER OPERATION: Repair hammertoe, fourth and fifth PRE-OP DIAGNOSIS: Right fourth and fifth hammertoe TISSUE SUBMITTED: A ? Proximal phalangeal head right fifth toe, B ? Middle phalangeal head right fourth toe MICROSCOPIC DIAGNOSIS A. Proximal phalangeal head right fifth toe: Pieces of bone with reactive changes, clinically hammertoe. B. Middle phalangeal head right fourth toe: A piece of bone with reactive changes, clinically hammertoe. SJ:sarah 10/25/2022 MICROSCOPIC DESCRIPTION Slides are reviewed. GROSS DESCRIPTION A - Received in fixative is one container labeled with the patient's name and designated proximal phalangeal head right fifth toe. The specimen consists of two irregular fragments of ham bone that in aggregate measure 1.5 x 0.5 x 0.3 cm. The specimen is totally submitted in one cassette after decalcification. B - Received in fixative is one container labeled with the patient's name and designated middle phalangeal head right fourth toe. The specimen consists of an irregular fragment of light ham bone measuring 1 x 0.5 x 0.3 cm. The specimen is totally submitted in one cassette after decalcification. / AM:sarah 10/20/2022 TC:5 CPT: 99876 x2, 53553 x2
--- NOTE | 2022-10-20 07:30 | RAD_ITS ---
STUDY: X-RAY - RIGHT FOOT CLINICAL: Female, 47 years old. Hammertoe repairs to fourth and fifth digits. TECHNIQUE: 3 intraoperative digital documentation view(s) of the foot. COMPARISON: None. FINDINGS: 3 intraoperative digital documentation views show postsurgical changes at the fourth digits. Total exposure time 4 seconds. Longest single exposure time 1 second. Total DAP 0.3159 cGycm2. Total Air Kerma 0.0188 mGy. RAD/Foot min 3 Views IMPRESSION: Digital documentation views as described. Electronically Signed: Weston Sabillon, at 11:22 EST ,
[2022-10-20] MEDS: Cefazolin 2 GM in 0.9% Normal Saline 100 ML IV (07:42)
[2022-10-20] MEDS: Bacitracin 500 UNITS/GM PACKET (08:20)
[2022-10-20 08:34] VITALS: BP 116/72; BP 144/90; PULSE 85; RESP 18; TEMP 36.4; O2SAT 93
--- NOTE | 2022-10-20 08:34 | OP.PCM_ITS ---
Problems Associated Problem List Diagnoses (1) Other hammer toe(s) (acquired), right foot: Report of Operation Date of Procedure: 10/20/22 Pre-Operative Diagnosis: 1. Right fifth digit adductovarus deformity 2. Right fourth digit adductovarus deformity Post-Operative Diagnosis: Same Surgery/Procedure Performed:: Correction right fourth and fifth digit adductovarus deformities with history of heloma Kisw[place]ili via derotational arthroplasties at the level of the proximal interphalangeal joint on the fifth digit and distal interphalangeal joint on the fourth Description of Surgical Findings:: Adequate reduction of hammertoe deformity with offloading of interdigital heloma molle site noted after completion of case. 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 All osseous prominences were offloaded prevent any compression neuropraxia. Well-padded right ankle tourniquet applied. Preoperatively fourth and fifth digital blocks were performed using 10 cc half percent Marcaine plain using aseptic technique. Right lower extremity was scrubbed prepped and draped using typical aseptic fashion. Once cleared by anesthesia a elliptical incision was drawn from proximal lateral to distal medial across the proximal interphalangeal joint as well as a similar incision but over the distal interphalangeal joint to the right fourth digit the right lower extremity was elevated exsanguinated and tourniquet was inflated to 200 feel 50 mmHg should be noted that total tourniquet time was 21 minutes. Once cleared by anesthesia a 15 blade was used to make the elliptical sick incision full-thickness down the level of the extensor tendon the extensor tendon was transversely cut and the proximal interphalangeal joint was exposed the extensor tendon was dissected off the dorsal aspect of the proximal phalangeal head and proximal phalangeal head was removed using bone cutting forceps adequate reducibility of the deformity noted site was flushed with copious amounts of normal sterile saline and closed using 4-0 Prolene simple interrupted. The same process was repeated to the fourth digit just at the level of the distal interphalangeal joint. As noted previously the proximal phalangeal head and middle phalangeal heads were sent to pathology for further examination. Fluoroscopically and clinically the abductor to varus deformity was noted to be rotated and there was adequate decompression of the heloma molle in the interdigital space. Sites were dressed with bacitracin Adaptic 4 x 4's Kerlix and Prince bandage. Patient tolerated procedure and anesthesia well in apparent satisfactory condition. Patient was transferred to PACU vital signs stable vascular status i ntact all digits for further monitoring prior to discharge she will maintain a heel weightbearing status in a cam boot and follow-up in 1 week. No complications
[2022-10-20 08:46] VITALS: BP 116/72; BP 124/89; PULSE 82; RESP 16; O2SAT 95
[2022-10-20 09:00] VITALS: BP 116/72; BP 124/78; PULSE 79; RESP 16; O2SAT 94
[2022-10-20 09:16] VITALS: BP 116/72; BP 124/85; PULSE 78; RESP 16; TEMP 36.8; O2SAT 95
[2022-10-20 09:52] VITALS: BP 116/72; BP 124/81; PULSE 60; RESP 18; O2SAT 97
== END 2022-10-20 10:05 | disposition home or self-care (01) ==
LOC: SDC 05:55 → AC 05:57
PROVIDERS: Anesthesiology; PCP Physician Assistant; Referring Provider Podiatrist; Visit Provider Podiatrist
PROC: (CPT 28285; principal; 2022-10-20 07:15)
DX: M20.41 Other hammer toe(s) (acquired), right foot (principal); F41.9 Anxiety disorder, unspecified; F32.A Depression, unspecified; F17.210 Nicotine dependence, cigarettes, uncomplicated
CPT/HCPCS: 28285 ×2; 01480; 73630; 76000; 81025; 88304; 88305; 88311; J7120; J2405

== ENCOUNTER → 2023-01-08 | Outpatient (CLI) | payer BC, SELFPAY ==
--- NOTE | 2023-01-08 09:23 | NM_ITS ---
CLINICAL: 47-year-old female with history of traumatic right foot pain. LIMITED 99m Tc MDP THREE PHASE BONE SCINTIGRAPHY COMPARISON: Plain film radiography report right foot 10/20/2022 FINDINGS: Following the intravenous administration of 26.7 mCi of 99m Tc MDP, three-phase bone acquisitions of the distal lower extremities-feet reveal: 1. The flow and immediate static blood pool acquisitions demonstrate normal arterial phase distribution of the radiopharmaceutical. There is venous hyperemia manifest in the the third digit of the right forefoot and region of the second cuneiform and cuboid tarsal bones of the right midfoot. 2. Delayed images depict persistent increased uptake noted in the right forefoot involving the third and to lesser extent fourth digit and right midfoot in the region of the second cuneiform and cuboid tarsal bones. 3. Enhanced uptake is noted in the left midfoot and the bilateral ankle articulations. 4. The remaining limited skeletal structures are scintigraphically unremarkable. NM/Bone Scan Three Phase IMPRESSION: 1. The increase in radiopharmaceutical concentration defined in the right forefoot involving the third-fourth digits and second cuneiform, cuboid tarsal bones of the right midfoot are most consistent with trauma-fracture. 2. Facilitated tracer distribution is defined in the bilateral ankles and left midfoot is most consistent with degenerative arthritis. Electronically Signed: Emeterio Pruitt, at 21:27 EDT ,
== END | disposition home or self-care (01) ==
LOC: NM 09:21
PROVIDERS: PCP Physician Assistant; Referring Provider Podiatrist; Visit Provider Podiatrist
DX: M84.374A Stress fracture, right foot, initial encounter for fracture (principal)
CPT/HCPCS: 78315; A9503

== ENCOUNTER → 2023-07-20 | Outpatient (CLI) | payer BC, SELFPAY ==
--- NOTE | 2023-07-20 09:50 | RAD_ITS ---
PROCEDURE: Fluoroscopic guided Hip Injection DATE: July 20, 2023 INDICATION: Female, 48 years old. Chronic right hip pain. PHYSICIAN: Amandeep Easley M.D. MEDICATIONS: 80 mg of the Kenalog and 3 cc of 0.5% Marcaine. 2% Lidocaine administered subcutaneously for local anesthesia. ACCESS SITE: Right hip. NEEDLE: 22-gauge spinal needle. FLUOROSCOPY TIME (if supplied): (1:36) minutes/seconds. One image was submitted. FINDINGS: The risks, benefits, and alternatives to the procedure were explained to the patient. The specific risks of bleeding, infection, and neurovascular injury were detailed and accepted. Witnessed informed consent was obtained. A 22-gauge spinal needle was positioned under radiographic fluoroscopic localization. Approximately 2 cc of Isovue-300 instilled for localization purposes. Medication was then injected. The patient tolerated the procedure well without any immediate complications. RAD/Inj/Asp Chavo Jt Should/Hip/Knee IMPRESSION: 1. Successful fluoroscopic guided hip injection. Electronically Signed: Amandeep Easley MD at 11:18 EDT ,
[2023-07-20] MEDS: Lidocaine 2% (5ml sdv) 5 ML VIAL.MPF INFILT (10:10)
[2023-07-20] MEDS: Bupivacaine 0.5% PF 10 ML VIAL IJ (10:10)
[2023-07-20] MEDS: Triamcinolone Acetonide 40 MG/ML Vial 80 MG INTRAARTIC (10:10)
--- NOTE | 2023-07-20 11:01 | PCM.OP.PRO ---
Procedure Report Date of Procedure: 07/20/23 Assessment & Plan Assessment/Plan (1) Right hip pain: PLAN: PROCEDURE: Fluoroscopic Guided Hip Injection ORDERING PROVIDER: Dr. Refugio Christiansen INDICATION: Female, 48 years old. Right hip pain. PROVIDER: SP Kitchen PROCEDURE: CONSENT: The risks, benefits, and alternatives to the procedure were explained to the patient. The specific risks of bleeding, infection, and neurovascular injury were detailed and accepted. Witnessed informed consent was obtained. TECHNIQUE: The right hip access site was prepped and draped in sterile fashion. 2% Lidocaine was administered subcutaneously for local anesthesia. A 22-gauge spinal needle was positioned under radiographic fluoroscopic localization. Approximately 2 cc of Isovue 300 instilled for localization purposes. Medication was then injected. MEDICATIONS: 80 mg of Kenalog and 3 cc of 0.5% Marcaine. The spinal needle was removed, and a dressing was applied. The patient tolerated the procedure well without any immediate complications. IMPRESSION: Successful fluoroscopic guided right hip injection. Procedures Radiology Radiology Xray Procedures: Inj Asp major Joint - Hip, Knee
== END | disposition home or self-care (01) ==
LOC: RAD 09:42
PROVIDERS: PCP Physician Assistant; Referring Provider Orthopaedic Surgery; Visit Provider Orthopaedic Surgery
DX: M25.551 Pain in right hip (principal); G89.29 Other chronic pain; M16.11 Unilateral primary osteoarthritis, right hip
CPT/HCPCS: 20610; 77002; Q9967

== ENCOUNTER → 2023-10-23 | Outpatient (CLI) | payer BC, SELFPAY ==
[2023-10-23] MEDS: Lidocaine 2% (5ml sdv) 5 ML VIAL.MPF (14:05)
[2023-10-23] MEDS: Betamethasone/Betamethasone 30 MG/5 ML Vial 12 MG INTRAARTIC (14:07)
[2023-10-23] MEDS: Lidocaine 1% (5 ml sdv) 5 ML Vial 3 ML INFILT (14:07)
== END | disposition home or self-care (01) ==
LOC: RAD 13:46
PROVIDERS: PCP Physician Assistant; Referring Provider Physician Assistant; Visit Provider Physician Assistant
DX: M16.11 Unilateral primary osteoarthritis, right hip (principal)
CPT/HCPCS: 76000; J0702

== ENCOUNTER → 2023-12-14 | Outpatient (CLI) | payer BC, SELFPAY ==
--- NOTE | 2023-12-14 10:05 | NM_ITS ---
CLINICAL: 48-year-old female with history of hypercalcemia and clinical hyperparathyroidism. 99m Tc SESTAMIBI DUAL PHASE PARATHYROID SCINTIGRAPHY COMPARISON: None available FINDINGS: Following the intravenous administration of 26.2 mCi of 99m Tc sestamibi, image acquisitions of the anterior neck at 15 minutes and approximately 2.0 hours post radiopharmaceutical provision reveal: 1. Immediate static blood pool acquisitions demonstrate distribution of the radiotracer in the right-left thyroid colloid. Uptake is accentuated in the enlarged right lobe. 2. Delayed images depict essentially unchanged distribution of the radiotracer in the enlarged right and normal sized left lobe thyroid colloid. NM/Parathyroid Scan IMPRESSION: 1. Increased uptake noted in the right thyroid bed involving an enlarged right lobe thyroid colloid may be secondary to parathyroid adenoma. 2. Alternatively, incomplete-delayed washout of the radiopharmaceutical from the entire functioning thyroid colloid may be secondary to a component of multinodular goiter, chronic lymphocytic thyroiditis. (Ravi, Radiographics 19: 601, 1999). Electronically Signed: Emeterio Pruitt DO at 10:04 EDT ,
== END | disposition home or self-care (01) ==
LOC: NM 10:03
PROVIDERS: PCP Physician Assistant; Referring Provider Physician Assistant; Visit Provider Physician Assistant
DX: E21.0 Primary hyperparathyroidism (principal); E83.52 Hypercalcemia; R79.89 Other specified abnormal findings of blood chemistry
CPT/HCPCS: 78070; A9500